=== PATIENT | female | born 1970 | race Caucasian/White ===

== ENCOUNTER 2018-03-20 09:08 | Outpatient (CLI) | payer OTHER, SELFPAY ==
[2018-03-20 11:18] LABS: Abs Immature Grans 0.03 k/cumm (0.0-0.09); Absolute Basophil Count 0.04 k/cumm (0.0-0.2); Absolute Eosinophil Count 0.22 k/cumm (0.0-0.7); Absolute Lymphocyte Count 2.05 k/cumm (1.2-3.4); Absolute Monocyte Count 0.81 k/cumm (0.11-0.7); Absolute Neutrophil Count 6.95 k/cumm (1.2-6.7); Basophils % 0.4; Eosinophils % 2.2; HCT 37.6 % (36.0-46.0); Immature Grans % 0.3; Iron 44 ug/dL (50-175); Lymphocytes % 20.3; Mean Corp. HGB Concentration 31.9 g/dL (32.0-36.0); Mean Corpuscular Hemoglobin 26.3 pg (27.0-33.0); Mean Corpuscular Volume 82.5 fL (80-95); Mean Platelet Volume 10.3 fL (8.0-11.0); Neutrophils % 68.8; Platelet Count 401 x1000/uL (130-400); RBC 4.56 m/cumm (4.00-5.20); RBC Distribution Width 16.4 % (11.7-14.6); Total Iron Binding Capacity 321 ug/dL (250-450); Transferrin Sat 14 % (15-50)
[2018-03-20 11:30] LABS: Ferritin 36 ng/mL (8-388)
== END 2018-03-20 09:28 ==
PROVIDERS: PCP Nurse Practitioner Family; Visit Provider Nurse Practitioner Family
DX: J45.40 Moderate persistent asthma, uncomplicated (principal); D50.0 Iron deficiency anemia secondary to blood loss (chronic)
CPT/HCPCS: 36415; 82728; 83540; 83550; 85025

== ENCOUNTER 2018-09-18 10:36 | Outpatient (CLI) | payer OTHER, SELFPAY ==
[2018-09-18 12:32] LABS: Abs Immature Grans 0.04 k/cumm (0.0-0.09); Absolute Basophil Count 0.04 k/cumm (0.0-0.2); Absolute Eosinophil Count 0.15 k/cumm (0.0-0.7); Absolute Neutrophil Count 7.01 k/cumm (1.2-6.7); Basophils % 0.4; Eosinophils % 1.5; HCT 38.1 % (36.0-46.0); HGB 12.2 g/dL (12.0-15.5); Immature Grans % 0.4; Lymphocytes % 19.1; Mean Corpuscular Hemoglobin 26.3 pg (27.0-33.0); Mean Corpuscular Volume 82.3 fL (80-95); Mean Platelet Volume 10.2 fL (8.0-11.0); Neutrophils % 70.6; Platelet Count 373 x1000/uL (130-400); RBC 4.63 m/cumm (4.00-5.20); RBC Distribution Width 15.4 % (11.7-14.6); White Blood Cell Count 9.94 k/cumm (4.4-10.8)
[2018-09-18 12:40] LABS: Iron 31 ug/dL (50-175); Total Iron Binding Capacity 335 ug/dL (250-450)
[2018-09-18 12:46] LABS: Hemoglobin A1C 5.7 % (4.5-6.2)
[2018-09-18 12:57] LABS: Anion Gap 9.5 mmol/L (3-11); BUN 14 mg/dL (7-18); CO2 27.5 mmol/L (21.0-32.0); Calcium 9.1 mg/dL (8.5-10.1); Chloride 101 mmol/L (98-107); Cholesterol 215 mg/dL (50-200); Ferritin 27 ng/mL (8-388); Glucose 83 mg/dL (70-100); HDL Cholesterol 66 mg/dL (40-60); LDL CHOLESTEROL 126 mg/dL (<100); Potassium 4.5 mmol/L (3.5-5.1); Sodium 138 mmol/L (136-145); Triglyceride 50 mg/dL (30-150)
== END 2018-09-18 10:56 ==
PROVIDERS: PCP Nurse Practitioner Family; Visit Provider Nurse Practitioner Family
DX: Z00.00 Encounter for general adult medical examination without abnormal findings
CPT/HCPCS: 36415; 80048; 80061; 83721; 82728; 83036; 83540; 83550; 85025

== ENCOUNTER 2018-09-23 02:01 | Outpatient (CLI) | payer OTHER, SELFPAY ==
--- NOTE | 2018-09-23 07:48 | DI.CT_ITS ---
SYMPTOMS/DIAGNOSIS: INTERMITTENT ABDOMINAL PAIN, R10.9, ASSESS FOR HERNIA CT OF THE ABDOMEN AND PELVIS: There are no prior comparison exams. Images were performed from the lung bases through the ischial tuberosities after oral and IV contrast. The exam is mildly limited by patient body habitus. There is motion on the mid portion of the scan. There is a small hiatal hernia. The lung bases are clear. The liver shows fatty infiltration. The patient is status post cholecystectomy. The spleen, pancreas, kidneys and adrenals are unremarkable. There is diverticulosis of the descending and sigmoid colon, but no evidence of diverticulitis. The appendix appears normal. There is no small bowel dilatation or wall thickening. The uterus and right ovary are unremarkable. A cyst is noted of the left ovary measuring 3 x 4.3 cm. There is no ascites or evidence of adenopathy. No inguinal or abdominal wall hernias are seen. The aorta is normal in diameter. There are mild degenerative changes in the spine. IMPRESSION: Left ovarian cyst. No evidence of hernia.
[2018-09-23] MEDS: Breeza Beverage 473 ML BTL PO ×2 (08:06→08:07)
[2018-09-23] MEDS: Omnipaque 350 MG/ML 50 ML BTL PO (08:07)
[2018-09-23] MEDS: Omnipaque 350 MG/ML 100 ML BTL IJ (10:14)
== END 2018-09-23 02:21 ==
PROVIDERS: PCP Nurse Practitioner Family; Visit Provider Nurse Practitioner Family
DX: R10.9 Unspecified abdominal pain (principal); N83.292 Other ovarian cyst, left side; K44.9 Diaphragmatic hernia without obstruction or gangrene; K76.0 Fatty (change of) liver, not elsewhere classified; K57.30 Diverticulosis of large intestine without perforation or abscess without bleeding
CPT/HCPCS: 74177; J3490; Q9967

== ENCOUNTER 2018-10-15 00:51 | Outpatient (CLI) | payer OTHER, SELFPAY ==
--- NOTE | 2018-10-15 08:30 | DI.MAMMO_ITS ---
SYMPTOM/DIAGNOSIS: SCREENING Z12.31 MAMMOGRAM: Mammograms were interpreted according to the usual protocol including computer analysis with CAD system, tomosynthesis and C view imaging. The breast tissue is of fatty radiodensity. There is no mass. There are no suspicious calcifications. There has been no significant interval change when compared with prior images. SUMMARY: No evidence of malignancy, Category 1, yearly screening mammography is recommended. Breast density A. MQSA ASSESSMENT OF FINDINGS: Negative. Category 1. Patient will receive a letter notifying them of these results. BI-RAD category A. The breasts are almost entirely fatty.
== END 2018-10-15 01:11 ==
PROVIDERS: PCP Nurse Practitioner Family; Visit Provider Nurse Practitioner Family
DX: Z12.31 Encounter for screening mammogram for malignant neoplasm of breast (principal)
CPT/HCPCS: 77063; 77067

== ENCOUNTER 2018-10-21 12:01 | Outpatient (CLI) | payer OTHER, SELFPAY ==
[2018-10-21 13:30] LABS: HCT 37.2 % (36.0-46.0); Mean Corp. HGB Concentration 32.3 g/dL (32.0-36.0); Mean Corpuscular Hemoglobin 26.3 pg (27.0-33.0); Mean Corpuscular Volume 81.6 fL (80-95); Mean Platelet Volume 10.2 fL (8.0-11.0); Platelet Count 340 x1000/uL (130-400); RBC 4.56 m/cumm (4.00-5.20); RBC Distribution Width 15.5 % (11.7-14.6); White Blood Cell Count 11.14 k/cumm (4.4-10.8)
--- NOTE | 2018-10-21 14:30 | DI.US_ITS ---
SYMPTOMS/DIAGNOSIS: EXTENSIVE THROMBOPHLEBITIS, VARICOSE VEINS, I80.9, I83.90, ? DVT LEFT LEG ULTRASOUND: Thrombus is identified in a superficial vein in the left lateral thigh. There is no evidence of DVT. The study is otherwise unremarkable.
== END 2018-10-21 12:21 ==
PROVIDERS: PCP Nurse Practitioner Family; Visit Provider Family Medicine
DX: I80.02 Phlebitis and thrombophlebitis of superficial vessels of left lower extremity (principal); I83.92 Asymptomatic varicose veins of left lower extremity; N93.9 Abnormal uterine and vaginal bleeding, unspecified
CPT/HCPCS: 36415; 85027; 93971

== ENCOUNTER 2018-10-23 04:29 | Emergency (ER) | payer OTHER, SELFPAY ==
--- NOTE | 2018-10-23 04:33 | W.ED.GENAD ---
Discharge Plan Disposition Patient Disposition: HOME Condition: Good Discharge Details Chief Complaint: SERVICENOW ADMINISTRATOR Clinical Impression: Excessive vaginal bleeding, Superficial thrombophlebitis Primary Care Provider: Julia Camacho ED Provider: Hernandez Linton [place] Meds and New Rx's Prescriptions: Continued cyclobenzaprine 5 mg tablet 5 - 10 mg PO TID PRN (Reason: muscle spasm) Qty: 42 RF: 0 C-PAP RF: 0 Asthma Check Meter 1 EACH device 1 ea Miscellaneous DAILY Qty: 1 RF: 1 ferrous sulfate 325 MG tablet 325 mg PO DAILY Qty: 100 RF: 3 albuterol sulfate [ProAir HFA] 8.5 GM HFA aerosol inhaler 2 puff Inhalation Q6H PRN Qty: 1 RF: 11 erythromycin 1 GM ointment 1 gm Ophthalmic HS PRNQty: 1 RF: 0 albuterol sulfate 2.5 MG/3 ML solution for nebulization 1 vial Inhalation Q 4-6 HR PRN Qty: 100 RF: 4 desloratadine 5 MG tablet 5 mg PO DAILY Qty: 90 RF: 0 fluticasone propion-salmeterol [Advair Diskus] 500-50 mcg/dose blister with device 1 inh Inhalation BID Qty: 60 RF: 11 montelukast [Singulair] 10 mg tablet 10 mg PO QPM Qty: 90 RF: 4 omeprazole 40 mg capsule,delayed release(DR/EC) 40 mg PO QAM Qty: 90 RF: 4 Discontinued rivaroxaban 10 mg tablet 10 mg PO DAILY Qty: 45 RF: 0 Discharge Instructions Additional Instructions: Would stop the Xarelto at this point as the risk seems higher than the benefit. Would use warm compresses to the phlebitis area. Prescription for the progesterone pill should be into your pharmacy later this morning. Follow-up with primary care and [facility]/PRODUCTION MANAGER [facility] as discussed. Return to ED for fainting, shortness of breath, chest pain, other concerns. Referrals: [facility] [Provider Group] Julia Camacho NP [Primary Care Provider] - Medical Decision Making Patient presenting with increased vaginal bleeding since being placed on Xarelto for superficial thrombophlebitis involving a varicose vein. At this point given her description of the bleeding the risk of anticoagulation outweighs the benefit of use for a varicose vein. She cannot take nonsteroidals because of anaphylaxis. Would therefore recommend just hot compresses. I would discontinue the Xarelto. Will get a repeat H&H now. Reassuring that heart rate and blood pressure are fine. Likely does not need transfusion. Patient's hemoglobin has come back normal and stable. Vital signs are stable. I did speak to Dr. Hernández who is on for [facility]PRODUCTION MANAGER [facility]. We both think the Xarelto should be discontinued at this point. He will make sure that the progesterone prescription is called in this morning. Patient instructed to use warm compresses to the phlebitis area. Follow-up with primary care and PRO[facility]/PRODUCTION MANAGER [facility]AG[facility]. Return to ED for syncope, shortness of breath, chest pain. Medical Records Medical records reviewed: Yes I reviewed the patient's medical records. Lab Data Lab results reviewed: Yes I reviewed the patient's lab results. HPI General Mode of arrival: ambulatory. Date/Time Provider Initiated Documentation: 10/23/18 04:33. Limitations to Documentation: no limitations. Information obtained by: patient. HPI Narrative: Patient presents to ED with heavy vaginal bleeding. Patient has had problems with abdominal vaginal bleeding. She has had abnormally long periods for the last few months. Patient was seen by primary care earlier this week. She was felt to have a clot in her left lower extremity and was sent for ultrasound. Ultrasound showed clot in a superficial unnamed vein. Because the phlebitis seemed to extend quickly they decided to put her on Xarelto. Subsequent to that her bleeding has got much worse. She was seen by SERVICENOW ADMINISTRATOR yesterday. Prescription was supposed to be called in, presumably for progesterone, but was not. Overnight she has been bleeding very heavily and feels weak and tired. She has had no syncope, chest pain, shortness of breath. Hemoglobin 2 days ago was normal. She contacted [facility]/PRODUCTION MANAGER [facility]AG[facility] and is now here for evaluation. Related Data Home Medications Medication Instructions Recorded Confirmed C-Pap 07/02/13 10/22/18 Asthma Check Meter #1 ea 07/08/14 10/22/18 ferrous sulfate 325 mg PO DAILY #100 tab 12/22/14 10/23/18 albuterol sulfate [ProAir HFA] 2 puff INHALATION Q6H PRN #1 08/29/16 10/23/18 inhaler erythromycin 1 gm OPHTHALMIC HS PRN #1 ea 06/02/17 10/23/18 albuterol sulfate 1 vial INHALATION Q 4-6 HR PRN 08/29/17 10/23/18 #100 vial desloratadine 5 mg PO DAILY #90 tab-cap 09/16/17 10/23/18 fluticasone 500 mcg-salmeterol 50 1 inh INHALATION BID #60 each 05/14/18 10/23/18 mcg/dose blistr powdr for inhalation montelukast 10 mg tablet 10 mg PO QPM #90 tab 05/14/18 10/23/18 omeprazole 40 mg capsule,delayed 40 mg PO QAM #90 cap 05/14/18 10/23/18 release cyclobenzaprine 5 mg tablet 5 - 10 mg PO TID PRN #42 tab 10/21/18 10/23/18 Previous Rx's Medication Instructions Recorded albuterol sulfate 1 vial INHALATION Q 4-6 HR PRN 08/29/17 #100 vial desloratadine 5 mg PO DAILY #90 tab-cap 09/16/17 fluticasone 500 mcg-salmeterol 50 1 inh INHALATION BID #60 each 05/14/18 mcg/dose blistr powdr for inhalation montelukast 10 mg tablet 10 mg PO QPM #90 tab 05/14/18 omeprazole 40 mg capsule,delayed 40 mg PO QAM #90 cap 05/14/18 release cyclobenzaprine 5 mg tablet 5 - 10 mg PO TID PRN #42 tab 10/21/18 Allergies Allergy/AdvReac Type Severity Reaction Status Date / Time aspirin Allergy Severe ANAPHYLAXIS Verified 10/23/18 04:46 codeine Allergy Severe ANALHYLAXIS Verified 10/23/18 04:46 mometasone furoate Allergy Severe ANAPHYLAXIS, Verified 10/23/18 04:46 [facility] ADVAIR OK TO TAKE NSAIDS (Non-Steroidal Allergy Severe ANAPHYLAXIS Verified 10/23/18 04:46 Anti-Inflamma Penicillins Allergy Unknown Verified 10/23/18 04:46 Review of Systems Review of Systems As documented in HPI otherwise negative as below. Const: feels weak; no fever, chills Resp: no cough, SOB, pleuritic pain CV: no CP, diaphoresis, edema, syncope GI: no abdominal pain, nausea, vomiting, diarrhea Neuro: no headache, numbness, focal weakness, confusion PFSH Medical History Prediabetes (Chronic) LINETTE (obstructive sleep apnea) (Chronic) Hyperlipidemia (Chronic 07/02/13) Moderate persistent asthma without complication (Chronic 09/15/17) Iron deficiency anemia due to chronic blood loss (Chronic 01/17/15) Abnormal uterine bleeding (Chronic) Gastroesophageal reflux disease (Chronic 07/02/13) Obesity (Chronic) Surgical History Cholecystectomy (Inactive 03/1994) Family History Mother Hyperlipidemia Type 2 diabetes mellitus Essential hypertension Father Heart disease Hyperlipidemia Myocardial infarction Type 2 diabetes mellitus Essential hypertension Sister Essential hypertension Hyperlipidemia Endometrial cancer Brother No problems noted. Son Asthma Daughter No problems noted. Maternal Grandfather Heart disease Lung cancer Maternal Grandmother Essential hypertension Breast cancer Paternal Grandfather COPD (chronic obstructive pulmonary disease) Paternal Grandmother Endometrial cancer Social History Smoking/Tobacco Use Status: Never Second Hand Exposure: Yes Alcohol Intake: never Drug use: Never Substance use type: does not use Caregiver/Support person: No Household members: spouse and children Housing: house Communication Needs: None Do you need help understanding health information?: Never Pets and animals: Yes Pets and animals: cat(s) and dog(s) Sexually active: Yes Do you think of yourself as: straight/heterosexual Current gender identity: female What is your relationship status?: How often do you talk on the phone with friends or family?: three or more times per week How often do you get together with friends or relatives?: twice per week How often do you attend orthodox or taoism services?: 4 or more times per year Do you belong to any clubs or organized social groups?: no Panel score (0-1 are the most socially isolated patients): 3 What type of physical activity do you participate in: walking Duration: decline to answer Frequency: 1-2 times per week Екатерина/Sikhism: Denominational Special екатерина needs: No Seatbelt use: always Helmet use: Yes Drive intox or ride w/intox 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 Const: Obese female in NAD. HEENT: NC/AT. Normal facial exam. Neck: Supple. Trachea midline. Lungs: Normal respiratory effort. Lungs are clear. Cor: RRR without murmur/gallop. Good radial pulses. Neuro: A+O x 3. CN grossly in tact. Good strength and no focal deficit. Ext: No C/C/E. Mild tenderness along the lateral calf up past knee across medial thigh with purplish-red discoloration. Skin: Warm and dry without rash. 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
[2018-10-23 04:39] VITALS: BP 144/66; PULSE 61; RESP 16; TEMP 36.7; O2SAT 100
[2018-10-23 05:28] LABS: HCT 37.5 % (36.0-46.0); HGB 12.3 g/dL (12.0-15.5)
== END 2018-10-23 06:06 | disposition home or self-care (01) ==
PROVIDERS: Emergency Provider Emergency Medicine; PCP Nurse Practitioner Family
DX: N89.8 Other specified noninflammatory disorders of vagina (principal); I80.02 Phlebitis and thrombophlebitis of superficial vessels of left lower extremity; Z79.01 Long term (current) use of anticoagulants
CPT/HCPCS: 36415; 99283; 85014; 85018

== ENCOUNTER 2018-11-02 00:24 | Outpatient (CLI) | payer OTHER, SELFPAY ==
--- NOTE | 2018-11-02 14:51 | DI.US_ITS ---
SYMPTOM/DIAGNOSIS: NEW LEFT LEG SWELLING, PLEASE REASSESS THROMBUS SUPERFICIAL THROMBOPHLEBITIS LT LEG i80.02 LEFT LOWER EXTREMITY ULTRASOUND: There is a superficial vein in the lateral anterior thigh which shows thrombus. There is no evidence of deep venous thrombosis or Love's cyst. The saphenous vein appears free of thrombus. IMPRESSION: Superficial thrombophlebitis in a vein of the lateral anterior thigh. No evidence of DVT.
== END 2018-11-02 00:44 ==
PROVIDERS: PCP Nurse Practitioner Family; Visit Provider Nurse Practitioner Family
DX: I80.02 Phlebitis and thrombophlebitis of superficial vessels of left lower extremity (principal); R22.42 Localized swelling, mass and lump, left lower limb
CPT/HCPCS: 93971

== ENCOUNTER 2018-11-13 01:12 | Outpatient (CLI) | payer OTHER, SELFPAY ==
--- NOTE | 2018-11-13 12:41 | DI.US_ITS ---
SYMPTOMS/DIAGNOSIS: ABNORMAL UTERINE AND VAGINAL BLEEDING, N93.9 PELVIC ULTRASOUND: Transabdominal and transvaginal examination was performed. Comparison pelvic CT scan is 09/23/18. The uterus measures 9.1 cm long x 5.2 cm AP x 6.3 cm transverse. The endometrial stripe is within normal limits at 1.1 cm. It is homogeneous without abnormal blood flow. There is a single hypoechoic mass along the posterior body of the uterus. It measures 2.1 x 1.4 cm. It is avascular. It does distort the contour of the uterus. This likely reflects a fibroid. Cervical nabothian cysts are present. The ovaries are not well visualized transabdominally or transvaginally due to patient body habitus. No suspicious adnexal masses, free pelvic fluid or hydronephrosis is identified. IMPRESSION: 1. Unremarkable endometrial stripe. 2. Uterine fibroid.
== END 2018-11-13 01:32 ==
PROVIDERS: PCP Nurse Practitioner Family; Visit Provider Obstetrics & Gynecology
DX: N93.8 Other specified abnormal uterine and vaginal bleeding (principal); D25.9 Leiomyoma of uterus, unspecified
CPT/HCPCS: 76830; 76856

== ENCOUNTER 2019-02-16 18:04 | Emergency (ER) | payer OTHER, SELFPAY ==
[2019-02-16] VITALS (7 sets, daily range): BP systolic 118–157; BP diastolic 68–101; PULSE 62–86; RESP 18–25; TEMP 36.8–37; O2SAT 91–100
[2019-02-16] MEDS: Normal Saline Flush 10 ML SYR IVP (18:16)
--- NOTE | 2019-02-16 18:42 | ED.GENADUL_ITS ---
Discharge Plan Disposition Patient Disposition: HOME Condition: Good Discharge Details Chief Complaint: Abd Prob Clinical Impression: Abdominal pain, Flank pain Primary Care Provider: Julia Camacho ED Provider: Mendy Maxwell Home Meds and New Rx's Prescriptions: New dicyclomine 20 mg tablet 20 mg PO TID Qty: 10 RF: 0 sucralfate [Carafate] 1 gram tablet 1 gm PO BID Qty: 10 RF: 0 pantoprazole [Protonix] 40 mg tablet,delayed release (DR/EC) 40 mg PO DAILY Qty: 14 RF: 0 Discontinued omeprazole 40 mg capsule,delayed release(DR/EC) 40 mg PO QAM Qty: 90 RF: 4 No Action ferrous sulfate 325 MG tablet 325 mg PO DAILY Qty: 100 RF: 3 albuterol sulfate [ProAir HFA] 8.5 GM HFA aerosol inhaler 2 puff Inhalation Q6H PRN Qty: 1 RF: 11 albuterol sulfate 2.5 MG/3 ML solution for nebulization 1 vial Inhalation Q 4-6 HR PRN Qty: 100 RF: 4 montelukast [Singulair] 10 mg tablet 10 mg PO QPM Qty: 90 RF: 4 fluticasone propion-salmeterol [Advair Diskus] 500-50 mcg/dose blister with device 1 inh Inhalation BID Qty: 60 RF: 11 Discharge Instructions Instructions: Peptic Ulcer (ED) Additional Instructions: Drink plenty of water. Rest activities as tolerated. Use medications as prescribed. Discontinue omeprazole. Use Protonix in its place. Use Carafate as prescribed. Use Bentyl if needed for spasmodic pain. Follow-up with primary care doctor for prompt reevaluation. CT findings discussed. Return for any worsening or concerns sooner if needed as discussed Discharge Data Discharge Date/Time-TO BE ENTERED AT DEPARTURE: 02/16/19 22:52 Medical Decision Making 48-year-old woman presents for complaints of right flank pain with radiation into her upper abdomen. Patient reports onset of pain in the last 2 weeks. Patient reports pain began as an uncomfortable ache however in the last 24 hours became more significant now very sharp intermittent. Patient reports pain is very sharp in her back and abdomen for approximately 10 to 15 seconds reports is a very sharp spasm then episodes relieve. Denies fever, chills. Nausea present without vomiting. Patient denies changes in her bowels or urination. Patient does report she has been menstruating for the last 5 days. Patient reports the only similar episode of pain she is experienced was in September somewhat similar but less severe ultimately had CAT scans and no obvious findings identified. Patient reports that episode also occurred during her menstrual cycle. Patient reports she does have a known uterine fibroid, followed by gynecology locally. Patient's labs do reveal very mild leukocytosis 13.27 with no significant shift. No significant change in bilirubin or liver functions. Patient is status post cholecystectomy greater than 20 years ago. testing negative. Patient's urinalysis reveals red blood cell without any obvious indicators of infection. No identifiable stone or hydronephrosis present. Patient did have mild peripancreatic fat stranding without correlating elevations of her lipase. Patient does not have significant left upper quadrant abdominal complaints on exam. Patient noted to have diverticula present without diverticulosis, hepatic steatosis. Hepatomegaly present. Again no elevation of LFTs in conjunction with these findings present. Patient is significantly more comfortable after receiving morphine and Valium. Patient able to move without significant difficulty. Pain is more tolerable. No identifiable kidney stone present given her flank pain with radiation toward the upper abdomen and is possible this could be related to duodenal ulcer. Patient does have a significant reflux history for which she does take omeprazole daily which she is compliant with. Will increase her omeprazole to Protonix and add Carafate as well Bentyl as it is possible this pain is related to ulcerative disease. Discussed this case with my attending Dr. Linton who agrees with plan of care. Patient may require primary care follow-up for possible endoscopy. Patient did have an endoscopy approximately 7 years ago. Patient also encouraged to follow-up with her [facility] doctor for her fibroids. Patient's painful episodes do correlate with her menses and her menses have been atypical in duration and timing in the last few months. Patient encouraged follow-up with her [facility] doctor. She agrees with plan of care Discussed inpatient management for pain versus outpatient follow-up with PCP. Patient does feel comfortable discharge home at this time. Will trial ulcer management. The patient was stable and requested discharge. Prior to discharge, my usual and customary return precautions were reviewed with the patient - this included follow-up instructions and reasons to return to the Emergency Department if conditions worsens, does not improve as expected, or other new concerns arise. HPI General Date/Time Provider Initiated Documentation: 02/16/19 18:07 . HPI Narrative: 48-year-old patient presents to the ER in significant pain in the right flank which radiates into the right side of her abdomen. Patient reports 2 weeks of intermittent pain which in the last 24 hours has escalated. Patient reports she is currently menstruating for the last 5 days pain has escalated in the last 5 days. Patient reports this morning feeling quite nauseous without vomiting. No measured fevers or chills. Patient reports noting abdominal bloating. She is moving her bowels normally. She does take iron supplements when menstruating. Patient denies urinary urgency, frequency or dysuria. Patient reports pain is extremely sharp coming in waves. Patient reports very clear episodes of pain lasting 10 to 15 seconds which then resolved mostly. Patient reports pain is significantly worse with attempted range of motion or change in position. Pain is worse with deep breathing. Patient denies obvious cough or difficulty breathing however does report breathing shallowly due to pain. Denies headache. Feeling mildly lightheaded. Related Data Home Medications Medication Instructions Recorded Confirmed ferrous sulfate 325 mg PO DAILY #100 tab 12/22/14 02/11/19 albuterol sulfate [ProAir HFA] 2 puff INHALATION Q6H PRN #1 08/29/16 02/11/19 inhaler albuterol sulfate 1 vial INHALATION Q 4-6 HR PRN 08/29/17 02/11/19 #100 vial montelukast 10 mg tablet 10 mg PO QPM #90 tab 05/14/18 02/11/19 Advair Diskus 500 mcg-50 mcg/dose 1 inh INHALATION BID #60 each NS 11/24/18 02/11/19 powder for inhalation dicyclomine 20 mg PO TID #10 tab 02/16/19 pantoprazole [Protonix] 40 mg PO DAILY #14 tab 02/16/19 sucralfate [Carafate] 1 gm PO BID #10 tab 02/16/19 Previous Rx's Medication Instructions Recorded albuterol sulfate 1 vial INHALATION Q 4-6 HR PRN 08/29/17 #100 vial montelukast 10 mg tablet 10 mg PO QPM #90 tab 05/14/18 Advair Diskus 500 mcg-50 mcg/dose 1 inh INHALATION BID #60 each NS 07/23/19 powder for inhalation dicyclomine 20 mg PO TID #10 tab 02/16/19 pantoprazole [Protonix] 40 mg PO DAILY #14 tab 02/16/19 sucralfate [Carafate] 1 gm PO BID #10 tab 02/16/19 Allergies Allergy/AdvReac Type Severity Reaction Status Date / Time aspirin Allergy Severe ANAPHYLAXIS Verified 02/16/19 18:22 codeine Allergy Severe ANALHYLAXIS Verified 02/16/19 18:22 mometasone furoate Allergy Severe ANAPHYLAXIS, Verified 02/16/19 18:22 [From Asmanex Twisthaler] ADVAIR OK TO TAKE NSAIDS (Non-Steroidal Allergy Severe ANAPHYLAXIS Verified 02/16/19 18:22 Anti-Inflamma Penicillins Allergy Unknown Verified 02/16/19 18:22 prednisone AdvReac Severe projectile Unverified 02/16/19 18:22 vomiting General Stated Complaint: Abd Prob SARITA: 3 Review of Systems Review of Systems ROS Unobtainable: All systems reviewed & are unremarkable except as noted in HPI and below Constitutional Constitutional: Denies chills, Denies fever(s), Denies headache(s) and Reports poor appetite ENT Ears, Nose, Mouth, and Throat: Denies headache(s) Respiratory Respiratory: Denies cough, Reports pain on inspiration, Denies pain with cough, Denies stridor and Denies wheezing Gastrointestinal Gastrointestinal: Reports abdominal pain, Reports bloating, Reports cramping, Reports nausea and Denies vomiting Genitourinary Genitourinary: Denies urinary frequency, Denies dysuria and Denies urinary urgen cy Neurologic Neurologic: Denies headache(s) Allergic/Immunologic Allergic/Immunologic: Denies wheezing [facility] Medical History Abnormal uterine bleeding (Chronic) Heavy menstrual bleeding, uterine fibroids on pelvic US Diverticulosis of colon (Chronic) Gastroesophageal reflux disease (Chronic) Hyperlipidemia (Chronic) Iron deficiency anemia due to chronic blood loss (Chronic) Moderate persistent asthma without complication (Chronic) Obesity (Chronic) LINETTE (obstructive sleep apnea) (Chronic) Prediabetes (Chronic) Surgical History Cholecystectomy (Inactive 03/1994) Family History Mother Hyperlipidemia Type 2 diabetes mellitus Essential hypertension Father , at 44 of [place], cardiomyopathy Heart disease Hyperlipidemia Myocardial infarction Type 2 diabetes mellitus Essential hypertension Sister Essential hypertension Hyperlipidemia Endometrial cancer Brother , at 19 of MVA No problems noted. Son Asthma Daughter No problems noted. Maternal Grandfather , at 86 of lung cancer Heart disease Lung cancer Maternal Grandmother , at 84 of breast CA Essential hypertension Breast cancer Paternal Grandfather , at 67 COPD (chronic obstructive pulmonary disease) Paternal Grandmother , at 86 of endometrial cancer Endometrial cancer Social History Smoking/Tobacco Use Status: Never Second Hand Exposure: Yes Alcohol Intake: never Drug use: Never Substance use type: does not use Caregiver/Support person: No Household members: spouse and children Housing: house Communication Needs: None Do you need help understanding health information?: Never Pets and animals: Yes Pets and animals: cat(s) and dog(s) Sexually active: Yes Do you think of yourself as: straight/heterosexual Current gender identity: female What is your relationship status?: How often do you talk on the phone with friends or family?: three or more times per week How often do you get together with friends or relatives?: twice per week How often do you attend nondenominational or yazidism services?: 4 or more times per year Do you belong to any clubs or organized social groups?: no Panel score (0-1 are the most socially isolated patients): 3 What type of physical activity do you participate in: walking Duration: decline to answer Frequency: 1-2 times per week Екатерина/Presybeterian: Uatsdin Special екатерина needs: No Seatbelt use: always Helmet use: Yes Drive intox or ride w/intox otr flatbed company 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 Alert and alert. HENMT: Head nomocephalic, normal to inspection. Atraumatic. Hearing grossly normal. EYES: General normal appearance. Alignment normal. Eyelids normal. Conjunctiva normal. NECK: Normal visual inspection. FROM. Trachea midline. No Midline tenderness. CHEST: Normal insepection of the chest. RESP: Normal respiratory effort. Speaking full sentences. No cough. No audible wheezing. No retractions. Breath sounds present and equal in all 4 quadrants, no wheezing, clear CARDIO: No JVD. No murmurs or rubs. Abdomen; right upper quadrant, epigastric, right lower quadrant tenderness with palpation abdominal tenderness with palpation. No obvious rebound or guarding. Bowel sounds present in all 4 quadrants. MUSCULOSKELETAL: Normal Gait. FROM of all extremities. SKIN: Normal. Dry. No rashes. NEURO: Alert and awake. Speech clear. PSYCH: Normal affect. Cooperative. Course Vital Signs Vital signs: Vital Signs Temperature 37.0 C 02/16/19 18:05 Pulse 86 02/16/19 18:05 Respiratory Rate 18 02/16/19 18:05 Blood Pressure 157/101 H 02/16/19 18:05 Pulse Oximetry 99 02/16/19 18:05 Temperature 37.0 C 02/16/19 18:05 Temperature Source Skin 02/16/19 18:05 Pulse 86 02/16/19 18:05 Respiratory Rate 18 02/16/19 18:05 Respiratory Effort 02/16/19 18:35 Blood Pressure 157/101 H 02/16/19 18:05 Blood Pressure Position Standing 02/16/19 18:05 Pulse Oximetry 99 02/16/19 18:05 Oxygen Delivery Method Room Air 02/16/19 18:05 Oxygen Flow Rate 0 02/16/19 18:05 Pain Level 10 02/16/19 18:05
[2019-02-16] MEDS: Normal Saline 1,000 ML 1000 ML IV (18:45)
[2019-02-16 18:49] LABS: Abs Immature Grans 0.04 k/cumm (0.0-0.09); Absolute Basophil Count 0.05 k/cumm (0.0-0.2); Absolute Eosinophil Count 0.09 k/cumm (0.0-0.7); Absolute Monocyte Count 0.93 k/cumm (0.11-0.7); Basophils % 0.4; Eosinophils % 0.7; HCT 36.4 % (36.0-46.0); HGB 11.7 g/dL (12.0-15.5); Immature Grans % 0.3; Lymphocytes % 22.8; Mean Corp. HGB Concentration 32.1 g/dL (32.0-36.0); Mean Corpuscular Hemoglobin 25.3 pg (27.0-33.0); Mean Corpuscular Volume 78.8 fL (80-95); Mean Platelet Volume 10.3 fL (8.0-11.0); Neutrophils % 68.8; Platelet Count 583 x1000/uL (130-400); RBC 4.62 m/cumm (4.00-5.20); RBC Distribution Width 15.9 % (11.7-14.6); White Blood Cell Count 13.27 k/cumm (4.4-10.8)
[2019-02-16 18:50] LABS: Absolute Lymphocyte Count 3.03 k/cumm (1.2-3.4); Absolute Neutrophil Count 9.13 k/cumm (1.2-6.7)
[2019-02-16] MEDS: diazePAM 10 MG/2 ML SYR 5 MG IVP (18:50)
[2019-02-16 19:00] LABS: HCG Qual (Serum) Negative
[2019-02-16 19:03] LABS: INR 1.1 (0.9-1.1); PTT Activated 26.3 sec (21.0-31.4); Prothrombin Time 11.2 sec (9.3-11.0)
[2019-02-16 19:17] LABS: ALT 14 U/L (14-59); AST 13 U/L (15-37); Albumin 3.8 g/dL (3.4-5.0); Alkaline Phosphatase 75 U/L (46-116); Anion Gap 11.3 mmol/L (3-11); BUN 10 mg/dL (7-18); Bilirubin, Total 0.4 mg/dL (0.2-1.0); CO2 25.7 mmol/L (21.0-32.0); CREATININE 0.85 mg/dL (0.55-1.02); Calcium 9.4 mg/dL (8.5-10.1); Chloride 102 mmol/L (98-107); Glucose 107 mg/dL (70-100); Lipase 75 U/L (73-393); Potassium 3.7 mmol/L (3.5-5.1); Sodium 139 mmol/L (136-145); Total Protein 8.4 g/dL (6.4-8.2)
--- NOTE | 2019-02-16 19:30 | DI.CT_ITS ---
EXAM: CT ABDOMEN PELVIS WO/W CLINICAL HISTORY: flank and right abd pain TECHNIQUE: Noncontrast. COMPARISON: CT ABDOMEN PELVIS W from 09/23/2018 FINDINGS: The liver is mildly enlarged and shows mild fatty infiltration. Patient is status post cholecystect key. There is no biliary dilatation. The spleen, adrenals, kidneys and pancreas are unremarkable. No urinary tract calculi or hydronephrosis is seen. The appendix appears normal. There is no bowel dilatation or inflammatory change. There is scattered diverticula but no evidence of diverticulitis. The aorta is normal in diameter. The bladder, uterus and ovaries are also within normal limits. T here are no thoracic compression fractures. IMPRESSION: No evidence of urinary tract calculi or hydronephrosis. No acute abnormality is identified.
[2019-02-16] MEDS: Omnipaque 350 MG/ML 100 ML BTL IJ (19:34)
[2019-02-16] MEDS: Ondansetron 4 MG/2 ML VIAL (19:52)
[2019-02-16 20:06] LABS: Bilirubin Negative (Negative); Blood Large (Negative); Clarity Cloudy (Clear); Glucose Negative (Negative); Ketones Trace mg/dL (Negative); Leukocyte Esterase Negative (Negative); Nitrite Negative (Negative); Urobilinogen 0.2 EU/dL (Up TO 0.2)
--- NOTE | 2019-02-16 20:07 | DI.VRAD_ITS ---
PROCEDURE INFORMATION: Exam: CT Abdomen And Pelvis Without And With Contrast Exam date and time: 02/16/2019 6:41 PM Clinical history: 48 years old, female; Abdominal pain and other: R flank; Generalized; Patient HX: R flank pain and abdominal pain TECHNIQUE: Imaging protocol: Computed tomography of the abdomen and pelvis without and with intravenous contrast. Radiation optimization: All CT scans at this facility use at least one of these dose optimization techniques: automated exposure control; mA and/or kV adjustment per patient size (includes targeted exams where dose is matched to clinical indication); or iterative reconstruction. Contrast material: OMNIPAQUE 350; Contrast volume: 100 ml; Contrast route: IV LAC; COMPARISON: CT ABDOMEN PELVIS W 09/23/2018 10:02 AM FINDINGS: Liver: Liver is minimally enlarged.There is diffuse decrease in hepatic parenchymal density, consistent with mild fatty infiltration. Gallbladder and bile ducts: The patient is status post cholecystectomy. No biliary ductal dilatation. Pancreas: There is subtle stranding of peripancreatic fat. No ductal dilatation. No peripancreatic collections. Spleen: Normal. No splenomegaly. Adrenals: Normal. No mass. Kidneys and ureters: Normal. No hydronephrosis. Stomach and bowel: There is no evidence of intestinal perforation or obstruction.. Scattered colonic diverticula without findings for diverticulitis. Appendix: The appendix appears normal. Intraperitoneal space: Unremarkable. No free air. No significant fluid collection. Vasculature: Unremarkable. No abdominal aortic aneurysm. Lymph nodes: Unremarkable. No enlarged lymph nodes. Bladder: Unremarkable as visualized. Reproductive: Unremarkable as visualized. Bones/joints: Unremarkable. No acute fracture. Soft tissues: Left diaphragm is elevated. IMPRESSION: 1. Peripancreatic fat stranding. Clinically correlate for the presence of pancreatitis. 2. Colonic diverticula. 3. Hepatic steatosis. 4. Hepatomegaly. Dictated and Authenticated by: Grant Garza MD. Ordering:BASSAM Brooke MD
[2019-02-16 20:10] LABS: C & S Indicated? C&S Done As Ordered; RBC >50 (0-2)
== END 2019-02-16 22:52 | disposition home or self-care (01) ==
PROVIDERS: Emergency Provider Physician Assistant; PCP Nurse Practitioner Family
DX: R10.9 Unspecified abdominal pain (principal); R11.0 Nausea
CPT/HCPCS: 36415; 80053; 81025; 83690; 87077; 96361; 96374; 96375; 99285; 74178; 81003; 81015; 84703; 85025; 85610; 85730; 87086; 99284; J2405; J3360; J3490

== ENCOUNTER 2019-02-18 10:16 | Observation (INO) | payer OTHER, SELFPAY ==
[2019-02-18] VITALS (41 sets, daily range): BP systolic 110–150; BP diastolic 61–107; PULSE 54–89; RESP 13–87; TEMP 36.5–36.7; O2SAT 94–100
[2019-02-18] MEDS: Normal Saline Flush 10 ML SYR IVP ×2 (10:35→17:43)
--- NOTE | 2019-02-18 10:37 | ED.GENADUL_ITS ---
Discharge Plan Disposition Patient Disposition: [facility] INPATIENT Discharge Details Chief Complaint: Abd Prob Clinical Impression: Intractable low back pain, Lumbar paraspinal muscle spasm Primary Care Provider: Julia Camacho ED Provider: Srikanth Biswas Home Meds and New Rx's Prescriptions: No Action ferrous sulfate 325 MG tablet 325 mg PO DAILY Qty: 100 RF: 3 albuterol sulfate [ProAir HFA] 8.5 GM HFA aerosol inhaler 2 puff Inhalation Q6H PRN Qty: 1 RF: 11 albuterol sulfate 2.5 MG/3 ML solution for nebulization 1 vial Inhalation Q 4-6 HR PRN Qty: 100 RF: 4 montelukast [Singulair] 10 mg tablet 10 mg PO QPM Qty: 90 RF: 4 fluticasone propion-salmeterol [Advair Diskus] 500-50 mcg/dose blister with device 1 inh Inhalation BID Qty: 60 RF: 11 dicyclomine 20 mg tablet 20 mg PO TID Qty: 10 RF: 0 sucralfate [Carafate] 1 gram tablet 1 gm PO BID Qty: 10 RF: 0 pantoprazole [Protonix] 40 mg tablet,delayed release (DR/EC) 40 mg PO DAILY Qty: 14 RF: 0 Medical Decision Making 11:00 Patient presented in notable distress involving severe right flank/right lower lumbar region spasm. Unable to perform detailed physical exam secondary to discomfort. Patient had a full competence of work-up less than 48 hours prior to arrival. Her work-up at that time demonstrated no acute findings. She did have a CT scan of her abdomen and pelvis which was negative for stone. She did have a urinalysis that had significant amount of RBCs, however, patient is currently menstruating. She has no abdominal pain on exam. Her vitals show a stable blood pressure and heart rate. No fever. IV placed and Valium 5 mg and fentanyl 50 mcg IV push given. Basic labs drawn. Will monitor for response. 15:28 This is a nontoxic-appearing 48-year-old female presenting to the emergency department noticeable distress involving her right lower lumbar region. Physical exam demonstrates point tenderness over the right lower paraspinal musculature of the lumbar spine. Palpable spasm present. She has no neurological deficits or evidence of cauda equina. Her labs are unremarkable. She has blood in her urine however admits to being on her menses. Her CT from less than 48 hours ago was negative for stone. She is required high-dose narcotics along with benzos obtain any sort of relief while resting on the stretcher. However, whenever she tries to self ambulate or even move ever so slightly she developed severe spasm and pain. At this point we have reached maximum medical management in the emergency department. We will need to admit for intractable back pain. Case discussed with Dr. Zafar who will admit. Holding orders placed. HPI General Date/Time Provider Initiated Documentation: 02/18/19 10:23 . HPI Narrative: Patient presents to the emergency department complaining of severe lower back pain. Pain is wavelike and severe at its maximum. She locates the pain in the right lower flank/lumbar region. She denies any abdominal pain. No chest pain. No shortness of breath. She states that the pain is been ongoing for the last 3 to 5 days. She was seen in the emergency department 2 days ago where she had a comprehensive work-up including blood work and CAT scan abd/pelvis. No definable source to her pain at that time. She states that her pain was much less severe then. She was diagnosed with a possible ulcer and discharged with medication for such. Related Data Home Medications Medication Instructions Recorded Confirmed ferrous sulfate 325 mg PO DAILY #100 tab 12/22/14 02/18/19 albuterol sulfate [ProAir HFA] 2 puff INHALATION Q6H PRN #1 08/29/16 02/18/19 inhaler albuterol sulfate 1 vial INHALATION Q 4-6 HR PRN 08/29/17 02/18/19 #100 vial montelukast 10 mg tablet 10 mg PO QPM #90 tab 05/14/18 02/18/19 Advair Diskus 500 mcg-50 mcg/dose 1 inh INHALATION BID #60 each NS 11/24/18 02/18/19 powder for inhalation dicyclomine 20 mg PO TID #10 tab 02/16/19 02/18/19 pantoprazole [Protonix] 40 mg PO DAILY #14 tab 02/16/19 02/18/19 sucralfate [Carafate] 1 gm PO BID #10 tab 02/16/19 02/18/19 Previous Rx's Medication Instructions Recorded albuterol sulfate 1 vial INHALATION Q 4-6 HR PRN 08/29/17 #100 vial montelukast 10 mg tablet 10 mg PO QPM #90 tab 05/14/18 Advair Diskus 500 mcg-50 mcg/dose 1 inh INHALATION BID #60 each NS 11/24/18 powder for inhalation dicyclomine 20 mg PO TID #10 tab 02/16/19 pantoprazole [Protonix] 40 mg PO DAILY #14 tab 02/16/19 sucralfate [Carafate] 1 gm PO BID #10 tab 02/16/19 Allergies Allergy/AdvReac Type Severity Reaction Status Date / Time aspirin Allergy Severe ANAPHYLAXIS Verified 02/18/19 10:38 codeine Allergy Severe ANALHYLAXIS Verified 02/18/19 10:38 mometasone furoate Allergy Severe ANAPHYLAXIS, Verified 02/18/19 10:38 [From Doron Azar] ADVAIR OK TO TAKE NSAIDS (Non-Steroidal Allergy Severe ANAPHYLAXIS Verified 02/18/19 10:38 Anti-Inflamma Penicillins Allergy Unknown Verified 02/18/19 10:38 prednisone AdvReac Severe projectile Unverified 02/18/19 10:38 vomiting General Stated Complaint: Abd Prob SARITA: 3 Review of Systems Constitutional Constitutional: Denies chills, Denies fatigue, Denies fever(s), Denies headache(s) and Denies lethargy ENT Ears, Nose, Mouth, and Throat: Denies dizziness, Denies headache(s) and Denies neck pain Cardiovascular Cardiovascular: Denies chest pain, Denies pedal edema, Denies edema, Denies dyspnea and Denies orthopnea Respiratory Respiratory: Denies dyspnea Gastrointestinal Gastrointestinal: Denies diarrhea, Denies loose stools, Denies nausea and Denies vomiting Genitourinary Genitourinary: Denies abnormal menses, Denies abnormal vaginal bleeding, Denies amenorrhea, Reports metrorrhagia, Denies hematuria, Denies dysuria, Denies pelvic pain, Reports flank pain, Denies urinary incontinence, Denies urinary hesitancy and Denies urinary urgency Musculoskeletal Musculoskeletal: Denies back pain, Denies deformity, Reports muscle cramps, Denies muscle weakness, Denies neck pain, Denies numbness, Denies stiffness and Denies tingling Neurologic Neurologic: Denies dizziness, Denies headache(s), Denies focal weakness, Denies numbness, Denies radicular pain, Denies sensory deficit and Denies tingling Endocrine Endocrine: Denies fatigue [facility] Medical History Abnormal uterine bleeding (Chronic) Heavy menstrual bleeding, uterine fibroids on pelvic US Diverticulosis of colon (Chronic) Gastroesophageal reflux disease (Chronic) Hyperlipidemia (Chronic) Iron deficiency anemia due to chronic blood loss (Chronic) Moderate persistent asthma without complication (Chronic) Obesity (Chronic) LINETTE (obstructive sleep apnea) (Chronic) Prediabetes (Chronic) Surgical History Cholecystectomy (Inactive 03/1994) Family History Mother Hyperlipidemia Type 2 diabetes mellitus Essential hypertension Father , at 44 of [place], cardiomyopathy Heart disease Hyperlipidemia Myocardial infarction Type 2 diabetes mellitus Essential hypertension Sister Essential hypertension Hyperlipidemia Endometrial cancer Brother , at 19 of MVA No problems noted. Son Asthma Daughter No problems noted. Maternal Grandfather , at 86 of lung cancer Heart disease Lung cancer Maternal Grandmother , at 84 of breast CA Essential hypertension Breast cancer Paternal Grandfather , at 67 COPD (chronic obstructive pulmonary disease) Paternal Grandmother , at 86 of endometrial cancer Endometrial cancer Social History Smoking/Tobacco Use Status: Never Second Hand Exposure: Yes Alcohol Intake: never Drug use: Never Substance use type: does not use Caregiver/Support person: No Household members: spouse and children Housing: house Communication Needs: None Do you need help understanding health information?: Never Pets and animals: Yes Pets and animals: cat(s) and dog(s) Sexually active: Yes Do you think of yourself as: straight/heterosexual Current gender identity: female What is your relationship status?: How often do you talk on the phone with friends or family?: three or more times per week How often do you get together with friends or relatives?: twice per week How often do you attend hindu or oriental orthodox services?: 4 or more times per year Do you belong to any clubs or organized social groups?: no Panel score (0-1 are the most socially isolated patients): 3 What type of physical activity do you participate in: walking Duration: decline to answer Frequency: 1-2 times per week Екатерина/Sikhism: Evangelical Special екатерина needs: No Seatbelt use: always Helmet use: Yes Drive intox or ride w/intox racing car driver: No Do you feel safe at home: Yes Do you feel safe in your relationship?: Yes Female Reproductive History Menstrual control method: other (Vasectomy) History History 2 Para 2 Hx # Term Pregnancies Multiple births Hx # Pregnancies Ectopic pregnancies AB induced Hx Number of Living Children 2 AB spontaneous Exam Const General: cooperative, acute distress moderate and in distress Nutritional Appearance: obese Orientation: alert, awake and oriented x3 Neck Neck: normal visual inspection Chest Chest: normal inspection of the chest Resp Effort & Inspection: normal respiratory effort and able to speak in complete sentences Auscultation: clear to auscultation bilaterally Cardio Rate: regular rate Rhythm: regular rhythm Pulses: normal peripheral pulses GI Inspection: normal to inspection Palpation: soft Back/Spine/Pelvis Back: no CVA tenderness Cervical Spine: normal cervical lordosis Thoracic/Lumbar Spine: paraspinal tenderness and thoraco-lumbar ROM limited Skin General skin exam: no rashes or lesions noted Neuro General: alert, awake and oriented x3 Cranial Nerves: CN's II-XI intact bilaterally Motor: muscle tone normal throughout Sensory Exam: no sensory deficits noted Course Vital Signs Vital signs: Vital Signs Temperature 36.7 C 02/18/19 10:30 Pulse 88 02/18/19 10:30 Respiratory Rate 20 02/18/19 10:30 Pulse Oximetry 100 02/18/19 10:30 Temperature 36.7 C 02/18/19 10:30 Temperature Source Skin 02/18/19 10:30 Pulse 88 02/18/19 10:30 Respiratory Rate 20 02/18/19 10:30 Pulse Oximetry 100 02/18/19 10:30 Oxygen Delivery Method Room Air 02/18/19 10:30 Oxygen Flow Rate 0 02/18/19 10:30 Pain Level 10 02/18/19 10:30 Comment 02/18/19 10:30
[2019-02-18] MEDS: Normal Saline 1,000 ML 150 ML IV (10:40)
[2019-02-18] MEDS: diazePAM 10 MG/2 ML SYR 5 MG IVP ×2 (10:42→11:18)
[2019-02-18] MEDS: fentaNYL 100 MCG/2 ML VIAL 50 MCG IVP (10:44)
[2019-02-18 11:10] LABS: Abs Immature Grans 0.03 k/cumm (0.0-0.09); Absolute Basophil Count 0.02 k/cumm (0.0-0.2); Absolute Eosinophil Count 0.11 k/cumm (0.0-0.7); Absolute Lymphocyte Count 1.44 k/cumm (1.2-3.4); Absolute Monocyte Count 0.82 k/cumm (0.11-0.7); Absolute Neutrophil Count 6.84 k/cumm (1.2-6.7); Basophils % 0.2; Eosinophils % 1.2; HCT 33.4 % (36.0-46.0); HGB 10.7 g/dL (12.0-15.5); Immature Grans % 0.3; Lymphocytes % 15.6; Mean Corpuscular Hemoglobin 25.4 pg (27.0-33.0); Mean Corpuscular Volume 79.1 fL (80-95); Mean Platelet Volume 9.8 fL (8.0-11.0); Monocytes % 8.9; Neutrophils % 73.8; Platelet Count 426 x1000/uL (130-400); RBC 4.22 m/cumm (4.00-5.20); RBC Distribution Width 15.9 % (11.7-14.6); White Blood Cell Count 9.26 k/cumm (4.4-10.8)
[2019-02-18] MEDS: fentaNYL 100 MCG/2 ML VIAL IVP (11:19)
[2019-02-18 11:31] LABS: ALT 14 U/L (14-59); AST 11 U/L (15-37); Albumin 3.4 g/dL (3.4-5.0); Alkaline Phosphatase 63 U/L (46-116); Anion Gap 12.4 mmol/L (3-11); BUN 7 mg/dL (7-18); Bilirubin, Total 0.4 mg/dL (0.2-1.0); CO2 22.6 mmol/L (21.0-32.0); CREATININE 0.78 mg/dL (0.55-1.02); Calcium 8.8 mg/dL (8.5-10.1); Chloride 105 mmol/L (98-107); Glucose 105 mg/dL (70-100); Potassium 3.8 mmol/L (3.5-5.1); Sodium 140 mmol/L (136-145); Total Protein 7.7 g/dL (6.4-8.2)
[2019-02-18] MEDS: HYDROmorphone 2 MG/ML VIAL 1 MG IVP ×2 (12:27→15:04)
[2019-02-18 12:32] LABS: Bilirubin Negative (Negative); Blood Moderate (Negative); Clarity Clear (Clear); Glucose Negative (Negative); Ketones Negative (Negative); Leukocyte Esterase Negative (Negative); Nitrite Negative (Negative); Urobilinogen 0.2 EU/dL (Up TO 0.2)
[2019-02-18 12:52] LABS: Bacteria Negative HPF (Negative); C & S Indicated? No; Casts Negative LPF (Negative); Crystals Negative HPF (Negative); Epithelial Cells Few HPF (Negative); Mucus Negative (Negative); Other Cells Rare Renal (Negative); WBC 0-2 HPF (0-5)
--- NOTE | 2019-02-18 15:49 | HPE_ITS ---
Date of service: 02/18/19 Time of Service: 16:47 Assessment and Plan Assessment and plan (1) Back pain: Status: Acute Assessment and plan: Intractable low back pain. Consider lumbar spine pathology, sciatic nerve impingement, piriformis syndrome, right hip pathology. She had a CT abdomen/pelvis 2 days ago in the ER, no discussion of lumbar spine. Radiology is not available at this time, contact radiology tomorrow to ask them to review previous CT images for lumbar spine pathology. Consider imaging right hip. IV solumedrol, soma QID for muscle spasms, dilaudid for severe pain. Lidoderm patch and aqua K Samson. Zofran for nausea. No NSAIDs due to anaphylaxis. Consult PT. (2) LINETTE (obstructive sleep apnea): Status: Chronic Assessment and plan: May use home CPAP. (3) Gastroesophageal reflux disease: Status: Chronic Assessment and plan: Continue PPI therapy with omeprazole daily. (4) DVT prophylaxis: Status: Acute Assessment and plan: Subcutaneous lovenox. (5) Discharge planning issues: Status: Acute Assessment and plan: She is a FULL CODE. This case was discussed with Dr. Zafar who is in agreement. History of Present Illness History of Present Illness Chief Complaint: Low back pain Narrative: Barb Gant is a very pleasant 48 year old female with a past medical history significant for obesity, obstructive sleep apnea, wears CPAP, prediabetes, iron deficiency anemia, abnormal uterine bleeding, GERD, uterine fibroids and diverticulosis who was seen 2 days ago in the emergency department for right flank and abdominal pain. At that time she had a CT abdomen which was negative for an acute process. There was concern that this could represent gastritis or ulcerative disease. She was discharged home with increased PPI dosing as well as Carafate and Bentyl with a follow-up plan for possible outpatient EGD. She presented back to the emergency department today with a report of severe lumbar back pain and muscle spasms that was not relieved with IV dilaudid and valium. Her labs in the ED showed normal renal function, anemia with hgb 10.7, which appears near baseline (also currently having menses), no leukocytosis. She is admitted to the med/surg floor for further evaluation and management. At the time of her admission to the MedSurg floor, she is lying on the stretcher with her head elevated, she reports that she is fairly comfortable if she does not move. She describes the pain as being in her right lower back extending down into her hip and buttock and occasionally down her leg to her knee. She reports that this pain has been intermittent for about 5 months, she has been to her chiropractor 7 times for this pain with no relief. Over the last 7 days, the pain has been progressively worsening. She has not been able to get comfortable in any position. She normally takes acetaminophen for pain. She has used heat and ice with minimal relief. She does not recall injuring her back. 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 With the pain, she has had a decreased appetite and intermittent nausea, no vomiting. She has been in her usual state of health otherwise. No shortness of breath, coughing, wheezing, chest pain/pressure, palpitations. She denies dysuria or hematuria. Review of Systems Review of Systems ROS Unobtainable: All systems reviewed & are unremarkable except as noted in HPI and below PFS Medical History Abnormal uterine bleeding (Chronic) Heavy menstrual bleeding, uterine fibroids on pelvic US Diverticulosis of colon (Chronic) Gastroesophageal reflux disease (Chronic) Hyperlipidemia (Chronic) Iron deficiency anemia due to chronic blood loss (Chronic) Moderate persistent asthma without complication (Chronic) Obesity (Chronic) LINETTE (obstructive sleep apnea) (Chronic) Prediabetes (Chronic) Surgical History Cholecystectomy (Inactive 03/1994) Family History Mother Hyperlipidemia Type 2 diabetes mellitus Essential hypertension Father , at 44 of [place], cardiomyopathy Heart disease Hyperlipidemia Myocardial infarction Type 2 diabetes mellitus Essential hypertension Sister Essential hypertension Hyperlipidemia Endometrial cancer Brother , at 19 of MVA No problems noted. Son Asthma Daughter No problems noted. Maternal Grandfather , at 86 of lung cancer Heart disease Lung cancer Maternal Grandmother , at 84 of breast CA Essential hypertension Breast cancer Paternal Grandfather , at 67 COPD (chronic obstructive pulmonary disease) Paternal Grandmother , at 86 of endometrial cancer Endometrial cancer Social History Smoking/Tobacco Use Status: Never Second Hand Exposure: Yes Alcohol Intake: never Drug use: Never Substance use type: does not use Caregiver/Support person: No Household members: spouse and children Housing: house Communication Needs: None Do you need help understanding health information?: Never Pets and animals: Yes Pets and animals: cat(s) and dog(s) Sexually active: Yes Do you think of yourself as: straight/heterosexual Current gender identity: female What is your relationship status?: How often do you talk on the phone with friends or family?: three or more times per week How often do you get together with friends or relatives?: twice per week How often do you attend yarsani or oriental orthodox services?: 4 or more times per year Do you belong to any clubs or organized social groups?: no Panel score (0-1 are the most socially isolated patients): 3 What type of physical activity do you participate in: walking Duration: decline to answer Frequency: 1-2 times per week Екатерина/Yazdanism: Orthodoxy Special екатерина needs: No Seatbelt use: always Helmet use: Yes Drive intox or ride w/intox new aut[employer] delivery driver: No Do you feel safe at home: Yes Do you feel safe in your relationship?: Yes Female Reproductive History Menstrual control method: other (Vasectomy) History History 2 Para 2 Hx # Term Pregnancies Multiple births Hx # Pregnancies Ectopic pregnancies AB induced Hx Number of Living Children 2 AB spontaneous Meds Home Medications and Allergies Home Medications Medication Instructions Recorded Confirmed Type ferrous sulfate 325 mg PO DAILY #100 tab 12/22/14 02/18/19 History albuterol sulfate [ProAir HFA] 2 puff INHALATION Q6H PRN #1 08/29/16 02/18/19 History inhaler albuterol sulfate 1 vial INHALATION Q 4-6 HR PRN 08/29/17 02/18/19 Rx #100 vial montelukast 10 mg tablet 10 mg PO QPM #90 tab 05/14/18 02/18/19 Rx Advair Diskus 500 mcg-50 mcg/dose 1 inh INHALATION BID #60 each NS 11/24/18 02/18/19 Rx powder for inhalation dicyclomine 20 mg PO TID #10 tab 02/16/19 02/18/19 Rx pantoprazole [Protonix] 40 mg PO DAILY #14 tab 02/16/19 02/18/19 Rx sucralfate [Carafate] 1 gm PO BID #10 tab 02/16/19 02/18/19 Rx diazepam [Valium] 5 mg PO TID PRN #20 tab 02/19/19 Rx hydromorphone [Dilaudid] 2 mg PO Q6H PRN #15 tab 02/19/19 Rx Allergies Allergy/AdvReac Type Severity Reaction Status Date / Time aspirin Allergy Severe ANAPHYLAXIS Verified 02/18/19 10:38 codeine Allergy Severe ANALHYLAXIS Verified 02/18/19 10:38 mometasone furoate Allergy Severe ANAPHYLAXIS, Verified 02/18/19 10:38 [From Asmanex Twisthaler] ADVAIR OK TO TAKE NSAIDS (Non-Steroidal Allergy Severe ANAPHYLAXIS Verified 02/18/19 10:38 Anti-Inflamma Penicillins Allergy Unknown Verified 02/18/19 10:38 prednisone AdvReac Severe projectile Unverified 02/18/19 10:38 vomiting Exam Narrative Exam Narrative: General: Overweight, middle-aged female, in no acute distress at rest, appears uncomfortable with position changes. Alert and oriented, pleasant cooperative. Answers questions properly. HEENT: Normocephalic, atraumatic, pupils equal and round, EOMI, mucous membranes moist. Neck: Supple. Cardiovascular: Heart has regular rate and rhythm, soft systolic murmur noted at left sternal border. Respiratory: Respirations even and unlabored, lung sounds clear to auscultation bilaterally. Back: No significant tenderness noted on palpation of the lumbar spine, +tenderness noted on palpation of her paraspinal muscles on the right and right sciatic notch. Extremities: well perfused, no clubbing, cyanosis or edema. Results Labs Result diagrams: 02/19/19 07:02 02/19/19 07:02 Labs: Laboratory Results - last 24 hr 02/18/19 02/18/19 02/18/19 11:02 11:02 12:10 WBC 9.26 RBC 4.22 Hgb 10.7 L Hct 33.4 L MCV 79.1 L MCH 25.4 L MCHC 32.0 RDW 15.9 H Plt Count 426 H MPV 9.8 Immature Gran % 0.3 Neutrophils % 73.8 Lymphocytes % 15.6 Monocytes % 8.9 Eosinophils % 1.2 Basophils % 0.2 Absolute Neutrophils 6.84 H Absolute Lymphocytes 1.44 Absolute Monocytes 0.82 H Absolute Eosinophils 0.11 Absolute Basophils 0.02 Sodium 140 Potassium 3.8 Chloride 105 Carbon Dioxide 22.6 Anion Gap 12.4 H BUN 7 Creatinine 0.78 Estimated GFR/1.73 m2 >= 60.00 Glucose 105 H Calcium 8.8 Total Bilirubin 0.4 AST 11 L ALT 14 Alkaline Phosphatase 63 Total Protein 7.7 Albumin 3.4 Urine Color Yellow Urine Clarity Clear Urine pH 7.0 Ur Specific [place] 1.010 Urine Protein Negative Urine Ketones Negative Urine Blood Moderate H Urine Nitrite Negative Urine Bilirubin Negative Urine Urobilinogen 0.2 Ur Leukocyte Esterase Negative Urine RBC 3-5 H Urine WBC 0-2 Ur Epithelial Cells Few Urine Crystals Negative Urine Bacteria Negative Urine Casts Negative Urine Mucus Negative Urine Other Rare renal Ur Culture Indicated? No Urine Glucose Negative Last Vital Signs Temp 36.7 C 02/18/19 10:30 Pulse 71 02/18/19 15:00 Resp 16 02/18/19 15:01 BP 141/107 H 02/18/19 15:00 Pulse Ox 100 02/18/19 15:00
[2019-02-18] MEDS: Omeprazole 20 MG CAPCR PO (17:42)
[2019-02-18] MEDS: methylPREDNISolone SUCC 40 MG VIAL IVP (17:42)
[2019-02-18] MEDS: Acetaminophen 325 MG TAB PO ×2 (17:42→21:35)
[2019-02-18] MEDS: Enoxaparin 40 MG/0.4 ML SYR SC (17:43)
[2019-02-18] MEDS: Lidocaine 5% Patch 1 PATCH TP (18:01)
[2019-02-18] MEDS: Montelukast 10 MG TAB PO (19:16)
[2019-02-19] MEDS: HYDROmorphone 2 MG/ML VIAL 0.5 MG IVP ×2 (00:01→03:58)
[2019-02-19] MEDS: Normal Saline Flush 10 ML SYR IVP ×4 (00:02→11:27)
[2019-02-19 00:29] VITALS: BP 129/78; PULSE 97; RESP 18; TEMP 36.6; O2SAT 99
[2019-02-19 03:25] VITALS: BP 130/70; PULSE 96; RESP 20; TEMP 36.6; O2SAT 98
[2019-02-19 07:20] VITALS: BP 115/80; PULSE 59; RESP 18; TEMP 36.5; O2SAT 98
[2019-02-19 07:25] LABS: HCT 31.8 % (36.0-46.0); Mean Corp. HGB Concentration 31.4 g/dL (32.0-36.0); Mean Corpuscular Hemoglobin 25.3 pg (27.0-33.0); Mean Corpuscular Volume 80.3 fL (80-95); Mean Platelet Volume 9.8 fL (8.0-11.0); Platelet Count 402 x1000/uL (130-400); RBC 3.96 m/cumm (4.00-5.20); White Blood Cell Count 9.74 k/cumm (4.4-10.8)
[2019-02-19] MEDS: Acetaminophen 325 MG TAB PO (07:28)
[2019-02-19] MEDS: Omeprazole 20 MG CAPCR PO (07:29)
[2019-02-19 07:52] LABS: BUN 9 mg/dL (7-18); CREATININE 0.66 mg/dL (0.55-1.02); Calcium 8.5 mg/dL (8.5-10.1); Chloride 104 mmol/L (98-107); Glucose 104 mg/dL (70-100); Potassium 4.1 mmol/L (3.5-5.1); Sodium 139 mmol/L (136-145)
[2019-02-19 07:58] LABS: Magnesium 1.9 mg/dL (1.8-2.4)
--- NOTE | 2019-02-19 09:34 | INITIAL_ITS ---
- If Service Date Differs Date of service: 02/19/19 Time of Service: 09:34 Care Management Initial Assess REASON FOR HOSPITALIZATION:: Intractable Back Pain PAST MEDICAL HISTORY/PAST SURGICAL HISTORY:: Medical History. Abnormal uterine bleeding (Chronic). Heavy menstrual bleeding, uterine fibroids on pelvic US. Diverticulosis of colon (Chronic). Gastroesophageal reflux disease (Chronic). Hyperlipidemia (Chronic). Iron deficiency anemia due to chronic blood loss (Chronic). Moderate persistent asthma without complication (Chronic). Obesity (Chronic). LINETTE (obstructive sleep apnea) (Chronic). Prediabetes (Chronic). Surgical History. Cholecystectomy (Inactive 03/1994) PREVIOUS FUNCTIONAL STATUS/SOCIAL/FAMILY SUPPORTS:: Barb lives in [place], [place] with her , Lefty and daughter Jesus. They also have an adult son, who is supportive. 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 She is independent at baseline. CURRENT FUNCTIONAL STATUS:: Barb was lying in bed when CM met with her. Her and daughter were in the room with her. She was pleasant and engaged in conversation. She stated that she is still in pain, but it is not as bad as previously. She stated that she worked with PT, and had an MRI, which was negative. She reported that she is very happy with the care she has received at [facility]. CM will continue to follow. ADVANCE DIRECTIVES:: None on file Has patient been provided with information about the portal?: No Did the patient sign up for the portal?: No CODE STATUS:: Full Code INSURANCE COVERAGE / FINANCIAL ISSUES:: [employer]/Fin Assist 57% CURRENT HOME/COMMUNITY SERVICES/EQUIPMENT:: None at this time. PRIMARY CARE PHYSICIAN:: Julia Camacho POTENTIAL DISCHARGE NEEDS:: Evaluations for further needs, follow up [facility] PATIENT/FAMILY EDUCATION NEEDS:: Review community based supports, discharge plan, discussion of self care needs including Ask Me Three ANTICIPATED BARRIERS TO DISCHARGE:: None identified at this time. TRANSPORTATION:: Anticipate her , Lefty will drive her home via private vehicle. PLAN:: Anticipate Barb will return home with no additional services when medically cleared. She will follow up with her PCP and outpatient PT. Her will drive her home when ready via private vehicle. CM will continue to follow.
[2019-02-19] MEDS: diazePAM 10 MG/2 ML SYR IVP (11:27)
[2019-02-19 11:30] VITALS: BP 123/77; PULSE 72; RESP 21; TEMP 36.7; O2SAT 99
--- NOTE | 2019-02-19 13:08 | DI.MRI_ITS ---
EXAM: MR LUMBAR SPINE WO CLINICAL HISTORY: intractable back pain. TECHNIQUE: Multiplanar multisequence MRI was performed. FINDINGS: The exam is limited by the patient's body habitus. The vertebral bodies are well maintained in height . The marrow signal appears normal. The conus medullaris appears intact. There is a [id number] levoscoliosis. The T12-L1, L1-2, and L2-3 levels have a normal appearance. There is slight loss of di sc height and disc bulging at L3-4. There are mild facet joint degenerative changes with no significa nt neural foraminal narrowing or central canal stenosis. At L4-5, there is mild broad-based disc bulging. There are mild facet joint degenerative changes but no significant central canal stenosis or neural foraminal narrowing. The L5 disc shows minimal bulging. There are minimal facet joint degenerative changes. No disc hernia tion is seen at any level. IMPRESSION: Mild degenerative disc changes and facet degenerative changes. No evidence of a disc herniation or ot her acute abnormality.
--- NOTE | 2019-02-19 13:08 | DI.MRI_ITS ---
EXAM: MR LOWER JOINT RT WO CLINICAL HISTORY: intractable back pain. TECHNIQUE: Multiplanar multisequence MRI was performed. The exam is limited by the patient's body h abitus. COMPARISON: No exams were available for comparison FINDINGS: The marrow signal is normal. No joint effusion fracture is seen. No abnormal signal is seen in th e hip musculature. IMPRESSION: Negative MRI of the pelvis and right hip.
--- NOTE | 2019-02-19 13:37 | IN_ITS ---
Date of service: 02/19/19 PT Notes Inpatient Physical Therapy Evaluation Date: 02/19/2019 Referring Doctor: JOSE ALBERTO Brunson PT Orders: PT CONSULT: Eval/Treat Precautions: Fall. Standard. Activity as tolerated. Patient Profile/Admitting Diagnosis: Patient is a 48-year-old female who presented to the ED on 02/18/2019 with chief complaints of right flank pain and right lumbar region spasm. CT of the abdomen and pelvis showed no acute abnormality. MRI of the pelvis and hip is negative. Lumbar spine MRI did show mild degenerative changes and facet degenerative changes with mild disc bulging at the level of L3-L4, and L4-L5. PMHX: Medical History Abnormal uterine bleeding (Chronic) Heavy menstrual bleeding, uterine fibroids on pelvic US Diverticulosis of colon (Chronic) Gastroesophageal reflux disease (Chronic) Hyperlipidemia (Chronic) Iron deficiency anemia due to chronic blood loss (Chronic) Moderate persistent asthma without complication (Chronic) Obesity (Chronic) LINETTE (obstructive sleep apnea) (Chronic) Prediabetes (Chronic) Surgical History Cholecystectomy (Inactive 03/1994) Social History/Home Situation: Patient lives in a home with three steps to enter with her . She has two grown daughters as well. She was previously independent with all activities of daily living. She likes to bake a lot. Equipment Owned/DME: None. Subjective: Patient reports a ?catching? pain in her right low back. She states that it is better at rest, and worse with movement. She reports the pain is worse with heat, and better with ice. She states she has been experiencing this pain since September 2018 after rolling onto the stretcher for a CT scan. 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 She denies headache, dizziness, and lightheadedness, and is agreeable to PT evaluation. Objective: General Observation: Patient is seen laying supine in bed with HOB elevated. She has a disconnected IV in her R UE. Mental Status: Alert and oriented x 4 Pain: Quantified as a 1.5/10 at rest, and a 10/10 during position changes. ROM: Trunk: Flexion WFL with no relief of pain. Extension WFL with mild increase in pain. Trunk lateral flexion to R and L markedly decreased to about 10degrees from neutral due to pain. Right Lower Extremity: Hip flexion allows about 10 degrees. Hip abduction WFL. Knee flexion WFL. Ankle dorsiflexion WFL. Ankle plantarflexion WFL. Left Lower Extremity: Hip flexion WFL. Hip abduction WFL. Knee flexion WFL. Ankle dorsiflexion WFL. Ankle plantarflexion WFL. Strength: Not assessed due to pain. Grossly 3-/5 for hip flexion and knee extension on the right side. Grossly 4-/5 on the L LE. Bed Mobility/Transfers: Rolling Independent Supine to sit Independent Sit to supine Independent Sit to stand Independent Stand to sit Independent Bed to chair SBA Chair to bed SBA Gait: Patient ambulated 50? using a FWW, and exhibited a reciprocal gait pattern. She had decreased step length, decreased martell, and decreased gait velocity. Upon pivoting to the right, she complained of severe pain and then used a step-to gait pattern for 50? with significantly decreased step length on the R. Balance: Static Sitting: Normal Dynamic Sitting: Normal Static Standing: Normal Dynamic Standing: Good Special Tests: Mobility Limitations Standardized Measure [facility] AM-PAC 6 clicks Basic Mobility Inpatient Short Form: Raw Score: CMS Score: [] Straight Leg Raise: Increased pain on R side with patient able to do about 15-20 degrees. Unremarkable findings on L side, patient was able to lift actively up to 60 degrees. FADIR/FAIR Test: Positive before internal rotation is applied on right side. Unremarkable findings on L side. Informed Consent/Education: Patient instructed in purpose of PT consult and plan of care. Assessment: Patient is a 48-year old female admitted to the medical/surgical unit with complaints of back pain. She lives in a house with her , that has three steps to enter. Together, they have two grown daughters. 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 She is tender to palpation along the posterior aspect of the iliac crest. Her pain is very provocative during position changes. Her FADIR test was positive before internal rotation was applied, indicating that the piriformis muscle may be a source of her pain. Due to the chronicity of her pain, she exhibited signs and symptoms consistent with low back pain with movement coordination impairment. Patient presents with clinical signs and symptoms consistent with current/admitting diagnoses that have resulted to mobility limitations, gait instability, generalized weakness, and impairment of motor control as demonstrated by the following impairment level findings: 1. Decreased strength to B LE major muscle groups 2. Impaired sitting/standing tolerance 3. Impaired activity tolerance 4. Global limitation of joint range of motion in B LE and trunk. Impairments are contributing to the following functional limitations: 1. Inability to safely ambulate without assistive device and physical karthik tance 2. Increase completion time for mobility ADL performance 3. Increased fall risk 4. Inability to negotiate steps alone safely Patient is assessed as a 30834 moderate complexity based on the following: History: 48-year-old female with intractable low back pain Examination: Demonstrable impairment in strength, balance, and range of motion with underlying impairments and functional limitations as documented above Presentation: Evolving Decision Makin Moderate complexity Goals: Goals X1 week 1. Independent gait on level surface with use of least restrictive device for at least 300 feet without report of pain nor dyspnea 2. Independent stair negotiation while holding onto bilateral rails for at least 10 steps without report of pain nor dyspnea 3. Independent with home exercise program 4. Good static and dynamic standing balance/tolerance Plan of Care/Treatment Plan: 1-2x/day, 7 days/week x 1 week. Plan of care has been reviewed with the MANAGER INPATIENT providing the service under Physical Therapy direction. Initiate Physical Therapy intervention for strengthening, bed mobility, transfers, gait, stairs, balance training, use of assistive device. DISCHARGE RECOMMENDATIONS: Patient is to be discharged to home under the care of her , after all of the above goals are met, and she is medically stable. Patient will highly benefit from using a FWW in [facility] to maximize mobility independence while reducing pain complaint. TREATMENT CODE/TIME: 45612 x 30 minutes, 15195 x 25 minutes Thank you very much for this referral. Bay Mccracken, SPT [facility] Cinthia Foss PT, DPT, CLT Carmine Garduno, [facility]
--- NOTE | 2019-02-19 13:56 | DSE_ITS ---
Documented by User: Janet Rutherford NP 02/19/19 14:23 Date of service: 02/19/19 Time of Service: 13:56 DS: Diagnosis Discharge Diagnosis (1) Back pain: Start date: 02/19/19 Start time: 13:56 Status: Acute Asessment and Plan: Improving. MRI negative for herniation or impingement. Will give valuim for pain and (2) LINETTE (obstructive sleep apnea): Status: Chronic (3) Gastroesophageal reflux disease: Status: Chronic (4) DVT prophylaxis: Status: Acute (5) Discharge planning issues: Status: Acute Discharge Plan Disposition Patient Disposition: HOME Condition: Improving Discharge Details Chief Complaint: Abd Prob Clinical Impression: Intractable low back pain, Lumbar paraspinal muscle spasm Reason For Visit: INTRACTABLE BACK PAIN Admit Date/Time: 02/18/19 14:51 Admit Provider: Jovi Zafar Attending Provider: Jovi Zafar Primary Care Provider: Julia Camacho ED Provider: Srikanth Biswas [facility] Course Hospital Course: Mrs. Gant is a 48 y.o female with PMH of obesity, obstructive sleep apnea, wears CPAP, prediabetes, iron deficiency anemia, abnormal uterine bleeding, GERD, uterine fibroids and diverticulosis. Admitted to [facility] m/s for intractable back pain. She was admitted after several days of severe flank pain abd pain worked up in the ED 2 days prior to admission. At the time CT scan revealed negative acute process and she was discharged on bentyl and carafate. After 24 hours she presented back to the ED with severe back spasms and pain, thought to have possible kidney stones or severe infection, however Imaging and labs revealed no acute process. She was admitted for pain control, PT and further testing. Today further MRI imaging reveals no impingement, or disc hernation there are mild bulging discs at L3-L5; moreover she denies numbness and tingling. Likely this is muscoskeletal with sciatic involvement. Patient agrees to discharge home with outpatient PT, valium for spasms, dilaudid for pain due to multiple drug a llergies and follow up with PCP this week. She also at this time is requiring a FWW, which will be arranged by CM. She denies CP, SOB, N/V/D Home Meds and New Rx's Prescriptions: New diazepam [Valium] 5 mg tablet 5 mg PO TID PRN (Reason: muscle spasm) Qty: 20 RF: 0 hydromorphone [Dilaudid] 2 mg tablet 2 mg PO Q6H PRN (Reason: pain) Qty: 15 RF: 0 Continued ferrous sulfate 325 MG tablet 325 mg PO DAILY Qty: 100 RF: 3 albuterol sulfate [ProAir HFA] 8.5 GM HFA aerosol inhaler 2 puff Inhalation Q6H PRN Qty: 1 RF: 11 albuterol sulfate 2.5 MG/3 ML solution for nebulization 1 vial Inhalation Q 4-6 HR PRN Qty: 100 RF: 4 montelukast [Singulair] 10 mg tablet 10 mg PO QPM Qty: 90 RF: 4 fluticasone propion-salmeterol [Advair Diskus] 500-50 mcg/dose blister with device 1 inh Inhalation BID Qty: 60 RF: 11 dicyclomine 20 mg tablet 20 mg PO TID Qty: 10 RF: 0 sucralfate [Carafate] 1 gram tablet 1 gm PO BID Qty: 10 RF: 0 pantoprazole [Protonix] 40 mg tablet,delayed release (DR/EC) 40 mg PO DAILY Qty: 14 RF: 0 Discharge Instructions Instructions: Sciatica (GEN), Non-pharmacological Pain Management Therapies for Adults (GEN), Narcotic Pain Management (GEN), Piriformis Syndrome (GEN), Lower Back Exercises (GEN) Additional Instructions: Take valium for muscle spasms do not exceed three tabs in 1 day. Take tylenol for pain first then Dilaudid for pain take as needed if tylenol does not work. Follow up with your primary provider this week. Rest and apply heat and ICE four times a day for pain Follow up with Physical therapy for strengthening exercises. Stand Alone Forms: Nursing Discharge Form Referrals: Babak Garduno PT [PHYSICAL THERAPIST] - 02/25/19 3:00 pm Activity:: Rest for a couple of days Equipment/Supplies:: FWW Diet:: As Tolerated Discharge Orders Discharge Orders: Discharge Order (Routine); Ordered 02/19/19 Ordered By: Janet Rutherford Discharge Data Discharge Date/Time-TO BE ENTERED AT DEPARTURE: 02/19/19 15:26 DS: Summary Status at Discharge Functional status at discharge: uses cane/walker Overall status at discharge: patient is progressing back to baseline Mental Status: mental status grossly normal Speech and Movement: speech and movement normal Mood: congruent mood Affect: normal affect Exam Narrative Exam Narrative: General: Overweight, middle-aged female, in no acute distress at rest, appears uncomfortable with position changes. Alert and oriented, pleasant cooperative. Answers questions properly. HEENT: Normocephalic, atraumatic, pupils equal and round, EOMI, mucous membranes moist. Neck: Supple. Cardiovascular: Heart has regular rate and rhythm, soft systolic murmur noted at left sternal border. Respiratory: Respirations even and unlabored, lung sounds clear to auscultation bilaterally. Back: No significant tenderness noted on palpation of the lumbar spine, +tender ness noted on palpation of her paraspinal muscles on the right and right sciatic notch. Extremities: well perfused, no clubbing, cyanosis or edema. Psych Mental Status: mental status grossly normal Speech and Movement: speech and movement normal Mood: congruent mood Affect: normal affect DS: Data Vitals/I&O Vitals and I&O: Vital Signs Temperature 36.7 C 02/19/19 11:30 Temperature Source Temporal Artery Scan 02/19/19 11:30 Pulse 72 02/19/19 11:30 Pulse Rhythm Regular 02/19/19 07:36 Pulse 72 02/18/19 15:01 Respiratory Rate 21 02/19/19 11:30 Respiratory Effort Non-Labored 02/19/19 07:36 Respiratory Depth Normal 02/19/19 07:36 Respiratory Pattern Normal 02/19/19 07:36 Blood Pressure 123/77 02/19/19 11:30 Blood Pressure Mean 115 02/18/19 15:00 Pulse Oximetry 99 02/19/19 11:30 Oxygen Delivery Method Room Air 02/19/19 11:30 Oxygen Flow Rate 0 02/19/19 11:30 Fraction of Inspired Oxygen (FIO2) 21 02/19/19 09:38 Pain Level 8 02/19/19 11:30 Comment 02/19/19 03:25 Intake & Output 02/18/19 02/19/19 02/19/19 23:59 11:59 23:59 Intake Total 240 / 240 0 / 2070 Output Total 450 / 450 1000 / 1000 Balance -210 / -210 1070 / 1070 Weight 134.9 kg 130.6 kg Intake: IV 1010 / 1010 Oral 240 / 240 1060 / 1060 Output: Urine 450 / 450 1000 / 1000 Other: Urine Color Straw Urine Appearance Clear Urine Odor Normal Voiding Methods Toilet Data Completed and Pending Completed studies during hospitalization [Text1]: Exam(s) a MRI:MR lower joint RT wo EXAM: MR LOWER JOINT RT WO CLINICAL HISTORY: intractable back pain. TECHNIQUE: Multiplanar multisequence MRI was performed. The exam is limited by the patient's body habitus. COMPARISON: No exams were available for comparison FINDINGS: The marrow signal is normal. No joint effusion fracture is seen. No abnormal signal is seen in the hip musculature. IMPRESSION: Negative MRI of the pelvis and right hip. Exam(s) a MRI:MR lumbar spine wo EXAM: MR LUMBAR SPINE WO CLINICAL HISTORY: intractable back pain. TECHNIQUE: Multiplanar multisequence MRI was performed. FINDINGS: The exam is limited by the patient's body habitus. The vertebral bodies are well maintained in height. The marrow signal appears normal. The conus medullaris appears intact. There is a [id number] levoscoliosis. The T12-L1, L1-2, and L2-3 levels have a normal appearance. There is slight loss of disc height and disc bulging at L3-4. There are mild facet joint degenerative changes with no significant neural foraminal narrowing or central canal stenosis. At L4-5, there is mild broad-based disc bulging. There are mild facet joint degenerative changes but no significant central canal stenosis or neural foraminal narrowing. The L5 disc shows minimal bulging. There are minimal facet joint degenerative changes. No disc herniation is seen at any level. IMPRESSION: Mild degenerative disc changes and facet degenerative changes. No evidence of a disc herniation or other acute abnormality. Labs on day of discharge: Labs from last 24 hours 02/19/19 02/19/19 02/19/19 07:02 07:02 07:02 WBC 9.74 RBC 3.96 L Hgb 10.0 L Hct 31.8 L MCV 80.3 MCH 25.3 L MCHC 31.4 L RDW 16.0 H Plt Count 402 H MPV 9.8 Sodium 139 Potassium 4.1 Chloride 104 Carbon Dioxide 25.0 Anion Gap 10.0 BUN 9 Creatinine 0.66 Estimated GFR/1.73 m2 >= 60.00 Glucose 104 H Calcium 8.5 Magnesium 1.9 02/18/19 02/18/19 15:39 15:39 WBC Cancelled RBC Cancelled Hgb Cancelled Hct Cancelled MCV Cancelled MCH Cancelled MCHC Cancelled RDW Cancelled Plt Count Cancelled MPV Cancelled Sodium Cancelled Potassium Cancelled Chloride Cancelled Carbon Dioxide Cancelled Anion Gap Cancelled BUN Cancelled Creatinine Cancelled Estimated GFR/1.73 m2 Cancelled Glucose Cancelled Calcium Cancelled Magnesium [facility] Medical History Abnormal uterine bleeding (Chronic) Heavy menstrual bleeding, uterine fibroids on pelvic US Diverticulosis of colon (Chronic) Gastroesophageal reflux disease (Chronic) Hyperlipidemia (Chronic) Iron deficiency anemia due to chronic blood loss (Chronic) Moderate persistent asthma without complication (Chronic) Obesity (Chronic) LINETTE (obstructive sleep apnea) (Chronic) Prediabetes (Chronic) Surgical History Cholecystectomy (Inactive 03/1994) Family History Mother Hyperlipidemia Type 2 diabetes mellitus Essential hypertension Father , at 44 of [place], cardiomyopathy Heart disease Hyperlipidemia Myocardial infarction Type 2 diabetes mellitus Essential hypertension Sister Essential hypertension Hyperlipidemia Endometrial cancer Brother , at 19 of MVA No problems noted. Son Asthma Daughter No problems noted. Maternal Grandfather , at 86 of lung cancer Heart disease Lung cancer Maternal Grandmother , at 84 of breast CA Essential hypertension Breast cancer Paternal Grandfather , at 67 COPD (chronic obstructive pulmonary disease) Paternal Grandmother , at 86 of endometrial cancer Endometrial cancer Social History Smoking/Tobacco Use Status: Never Second Hand Exposure: Yes Alcohol Intake: never Drug use: Never Substance use type: does not use Caregiver/Support person: No Household members: spouse and children Housing: house Communication Needs: None Do you need help understanding health information?: Never Pets and animals: Yes Pets and animals: cat(s) and dog(s) Sexually active: Yes Do you think of yourself as: straight/heterosexual Current gender identity: female What is your relationship status?: How often do you talk on the phone with friends or family?: three or more times per week How often do you get together with friends or relatives?: twice per week How often do you attend confucianism or jainism services?: 4 or more times per year Do you belong to any clubs or organized social groups?: no Panel score (0-1 are the most socially isolated patients): 3 What type of physical activity do you participate in: walking Duration: decline to answer Frequency: 1-2 times per week Екатерина/Mandaeism: Protestant Special екатерина needs: No Seatbelt use: always Helmet use: Yes Drive intox or ride w/intox m48/m60 tank driver: No Do you feel safe at home: Yes Do you feel safe in your relationship?: Yes Female Reproductive History Menstrual control method: other (Vasectomy) History History 2 Para 2 Hx # Term Pregnancies Multiple births Hx # Pregnancies Ectopic pregnancies AB induced Hx Number of Living Children 2 AB spontaneous Documented by User: Jovi Zafar MD 02/19/19 16:46 Discharge Plan Disposition Patient Disposition: HOME Condition: Improving Discharge Details Chief Complaint: Abd Prob Clinical Impression: Intractable low back pain, Lumbar paraspinal muscle spasm Reason For Visit: INTRACTABLE BACK PAIN Admit Date/Time: 02/18/19 14:51 Admit Provider: Jovi Zafar Attending Provider: Jovi Zafar Primary Care Provider: Julia Camacho ED Provider: Srikanth Biswas Hospital Course Hospital Course: Mrs. Gant is a 48 y.o female with PMH of obesity, obstructive sleep apnea, wears CPAP, prediabetes, iron deficiency anemia, abnormal uterine bleeding, GERD, uterine fibroids and diverticulosis. Admitted to [facility] m/s for intractable back pain. She was admitted after several days of severe flank pain abd pain worked up in the ED 2 days prior to admission. At the time CT scan revealed negative acute process and she was discharged on bentyl and carafate. After 24 hours she presented back to the ED with severe back spasms and pain, thought to have possible kidney stones or severe infection, however Imaging and labs revealed no acute process. She was admitted for pain control, PT and further testing. Today further MRI imaging reveals no impingement, or disc hernation there are mild bulging discs at L3-L5; moreover she denies numbness and tingling. Likely this is muscoskeletal with sciatic involvement. Patient agrees to discharge home with outpatient PT, valium for spasms, dilaudid for pain due to multiple drug allergies and follow up with PCP this week. She also at this time is requiring a FWW, which will be arranged by CM. She denies CP, SOB, N/V/D Home Meds and New Rx's Prescriptions: New diazepam [Valium] 5 mg tablet 5 mg PO TID PRN (Reason: muscle spasm) Qty: 20 RF: 0 hydromorphone [Dilaudid] 2 mg tablet 2 mg PO Q6H PRN (Reason: pain) Qty: 15 RF: 0 Continued ferrous sulfate 325 MG tablet 325 mg PO DAILY Qty: 100 RF: 3 albuterol sulfate [ProAir HFA] 8.5 GM HFA aerosol inhaler 2 puff Inhalation Q6H PRN Qty: 1 RF: 11 albuterol sulfate 2.5 MG/3 ML solution for nebulization 1 vial Inhalation Q 4-6 HR PRN Qty: 100 RF: 4 montelukast [Singulair] 10 mg tablet 10 mg PO QPM Qty: 90 RF: 4 fluticasone propion-salmeterol [Advair Diskus] 500-50 mcg/dose blister with device 1 inh Inhalation BID Qty: 60 RF: 11 dicyclomine 20 mg tablet 20 mg PO TID Qty: 10 RF: 0 sucralfate [Carafate] 1 gram tablet 1 gm PO BID Qty: 10 RF: 0 pantoprazole [Protonix] 40 mg tablet,delayed release (DR/EC) 40 mg PO DAILY Qty: 14 RF: 0 Discharge Instructions Instructions: Sciatica (GEN), Non-pharmacological Pain Management Therapies for Adults (GEN), Narcotic Pain Management (GEN), Piriformis Syndrome (GEN), Lower Back Exercises (GEN) Additional Instructions: Take valium for muscle spasms do not exceed three tabs in 1 day. Take tylenol for pain first then Dilaudid for pain take as needed if tylenol does not work. Follow up with your primary provider this week. Rest and apply heat and ICE four times a day for pain Follow up with Physical therapy for strengthening exercises. Stand Alone Forms: Nursing Discharge Form Referrals: Babak Garduno, PT [PHYSICAL THERAPIST] - 02/25/19 3:00 pm Activity:: Rest for a couple of days Equipment/Supplies:: FWW Diet:: As Tolerated Discharge Orders Discharge Orders: Discharge Order (Routine); Ordered 02/19/19 Ordered By: Janet Rutherford Discharge Data Discharge Date/Time-TO BE ENTERED AT DEPARTURE: 02/19/19 15:26 [facility] Medical History Abnormal uterine bleeding (Chronic) Heavy menstrual bleeding, uterine fibroids on pelvic US Diverticulosis of colon (Chronic) Gastroesophageal reflux disease (Chronic) Hyperlipidemia (Chronic) Iron deficiency anemia due to chronic blood loss (Chronic) Moderate persistent asthma without complication (Chronic) Obesity (Chronic) LINETTE (obstructive sleep apnea) (Chronic) Prediabetes (Chronic) Surgical History Cholecystectomy (Inactive 03/1994) Family History Mother Hyperlipidemia Type 2 diabetes mellitus Essential hypertension Father , at 44 of [place], cardiomyopathy Heart disease Hyperlipidemia Myocardial infarction Type 2 diabetes mellitus Essential hypertension Sister Essential hypertension Hyperlipidemia Endometrial cancer Brother , at 19 of MVA No problems noted. Son Asthma Daughter No problems noted. Maternal Grandfather , at 86 of lung cancer Heart disease Lung cancer Maternal Grandmother , at 84 of breast CA Essential hypertension Breast cancer Paternal Grandfather , at 67 COPD (chronic obstructive pulmonary disease) Paternal Grandmother , at 86 of endometrial cancer Endometrial cancer Social History Smoking/Tobacco Use Status: Never Second Hand Exposure: Yes Alcohol Intake: never Drug use: Never Substance use type: does not use Caregiver/Support person: No Household members: spouse and children Housing: house Communication Needs: None Do you need help understanding health information?: Never Pets and animals: Yes Pets and animals: cat(s) and dog(s) Sexually active: Yes Do you think of yourself as: straight/heterosexual Current gender identity: female What is your relationship status?: How often do you talk on the phone with friends or family?: three or more times per week How often do you get together with friends or relatives?: twice per week How often do you attend confucianism or jainism services?: 4 or more times per year Do you belong to any clubs or organized social groups?: no Panel score (0-1 are the most socially isolated patients): 3 What type of physical activity do you participate in: walking Duration: decline to answer Frequency: 1-2 times per week Екатерина/Mandaeism: Protestant Special екатерина needs: No Seatbelt use: always Helmet use: Yes Drive intox or ride w/intox m48/m60 tank driver: No Do you feel safe at home: Yes Do you feel safe in your relationship?: Yes History History 2 Para 2 Hx # Term Pregnancies Multiple births Hx # Pregnancies Ectopic pregnancies AB induced Hx Number of Living Children 2 AB spontaneous
--- NOTE | 2019-02-19 14:52 | CMDISCH_ITS ---
- If Service Date Differs Date of service: 02/19/19 Time of Service: 14:52 LACE Index Scoring Tool - Questions: Length of Stay (in days): 2 Acuity (Admit via E.D.?): Yes E.D. Visits: 3 - Answers: Total Score: 8 Risk of Readmission: Low Risk Care Management Discharge Reason for Hospitalization: Intractable Back Pain Discharge Plan: Barb will return home with no additional services at this time. She will follow up with her PCP and outpatient PT. Her will drive her ho me via private vehicle. Patient/Family Education Needs: Review discharge instructions including activity levels and medication, discussion of self care needs including Ask Me Three Services Needed at Discharge: Physical Therapy
--- NOTE | 2019-02-19 15:45 | CHAPLAIN ---
Barb was in bed. Her and daughter were visiting with her. She was experiencing pain and pushed the call button for the nurse. She was pleasant even though she was in pain. She was waiting to have an MRI. I explained my role and offered support.
--- NOTE | 2019-02-19 16:28 | INDS_ITS ---
Date of service: 02/19/19 Time of Service: 14:22 PT Notes Inpatient Physical Therapy Discharge Summary Dates: 02/19/2019 Dates of Service: 02/19/2019 only Referring Doctor: JOSE ALBERTO Brunson PT Orders: PT CONSULT: Eval/Treat Precautions: Fall. Standard. Activity as tolerated. Patient Profile/Admitting Diagnosis: Patient is a 48-year-old female who presented to the ED on 02/18/2019 with chief complaints of right flank pain and right lumbar region spasm. CT of the abdomen and pelvis showed no acute abnormality. MRI of the pelvis and hip is negative. Lumbar spine MRI did show mild degenerative changes and facet degenerative changes with mild disc bulging at the level of L3-L4, and L4-L5. PMHX: Medical History Abnormal uterine bleeding (Chronic) Heavy menstrual bleeding, uterine fibroids on pelvic US Diverticulosis of colon (Chronic) Gastroesophageal reflux disease (Chronic) Hyperlipidemia (Chronic) Iron deficiency anemia due to chronic blood loss (Chronic) Moderate persistent asthma without complication (Chronic) Obesity (Chronic) LINETTE (obstructive sleep apnea) (Chronic) Prediabetes (Chronic) Surgical History Cholecystectomy (Inactive 03/1994) Social History/Home Situation: Patient lives in a home with three steps to enter with her . She has two grown daughters as well. She was previously independent with all activities of daily living. She likes to bake a lot. Equipment Owned/DME: None. Subjective: Patient reports a ?catching? pain in her right low back. She states that it is better at rest, and worse with movement. She reports the pain is worse with heat, and better with ice. She states she has been experiencing this pain since September 2018 after rolling onto the stretcher for a CT scan. 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 She denies headache, dizziness, and lightheadedness, and is agreeable to PT evaluation. Objective: General Observation: Patient is seen laying supine in bed with HOB elevated. She has a disconnected IV in her R UE. Mental Status: Alert and oriented x 4 Pain: Quantified as a 1.5/10 at rest, and a 10/10 during position changes. ROM: Trunk: Flexion WFL with no relief of pain. Extension WFL with mild increase in pain. Trunk lateral flexion to R and L markedly decreased to about 10degrees from neutral due to pain. Right Lower Extremity: Hip flexion allows about 10 degrees. Hip abduction WFL. Knee flexion WFL. Ankle dorsiflexion WFL. Ankle plantarflexion WFL. Left Lower Extremity: Hip flexion WFL. Hip abduction WFL. Knee flexion WFL. Ankle dorsiflexion WFL. Ankle plantarflexion WFL. Strength: Not assessed due to pain. Grossly 3-/5 for hip flexion and knee extension on the right side. Grossly 4-/5 on the L LE. Bed Mobility/Transfers: Rolling Independent Supine to sit Independent Sit to supine Independent Sit to stand Independent Stand to sit Independent Bed to chair SBA Chair to bed SBA Gait: Patient ambulated 50? using a FWW, and exhibited a reciprocal gait pattern. She had decreased step length, decreased martell, and decreased gait velocity. Upon pivoting to the right, she complained of severe pain and then used a step-to gait pattern for 50? with significantly decreased step length on the R. Balance: Static Sitting: Normal Dynamic Sitting: Normal Static Standing: Normal Dynamic Standing: Good Special Tests: Mobility Limitations Standardized Measure [facility] 6 clicks Basic Mobility Inpatient Short Form: Raw Score: 21 CMS Score: 33% deficit Straight Leg Raise: Increased pain on R side with patient able to do about 15-20 degrees. Unremarkable findings on L side, patient was able to lift actively up to 60 degrees. FADIR/FAIR Test: Positive before internal rotation is applied on right side. Unremarkable findings on L side. Assessment: Patient is a 48-year old female admitted to the medical/surgical unit with complaints of back pain. She lives in a house with her , that has three steps to enter. Together, they have two grown daughters. 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 She is tender to palpation along the posterior aspect of the iliac crest. Her pain is very provocative during position changes. Her FADIR test was positive before internal rotation was applied, indicating that the piriformis muscle may be a source of her pain. Due to the chronicity of her pain, she exhibited signs and symptoms consistent with low back pain with movement coordination impairment. Patient presents with clinical signs and symptoms consistent with current /admitting diagnoses that have resulted to mobility limitations, gait instability, generalized weakness, and impairment of motor control as demonstrated by the following impairment level findings: 1. Decreased strength to B LE major muscle groups 2. Impaired sitting/standing tolerance 3. Impaired activity tolerance 4. Global limitation of joint range of motion in B LE and trunk. Impairments are contributing to the following functional limitations: 1. Inability to safely ambulate without assistive device and physical assistance 2. Increase completion time for mobility ADL performance 3. Increased fall risk 4. Inability to negotiate steps alone safely Goals: Goals X1 week 1. Independent gait on level surface with use of least restrictive device for at least 300 feet without report of pain nor dyspnea NOT MET 2. Independent stair negotiation while holding onto bilateral rails for at least 10 steps without report of pain nor dyspnea NOT MET 3. Independent with home exercise program NOT MET 4. Good static and dynamic standing balance/tolerance NOT MET Treatment Plan: Treatment today consisted of gentle piriformis stretch on the right side, slow posterior pelvic tilting, slow pelvic rocking to right and left, sustained a pressure on right piriformis, and ended with effleurage technique to bilateral paraspinals and bilateral lumbar areas after a short distance ambulation using the front wheel walker. DISCHARGE RECOMMENDATIONS: Patient is to be discharged to home under the care of her after all of the above goals are met and when she is medically stable. Patient will highly benefit from using a FWW in order to maximize mobility independence while reducing pain complaint. TREATMENT CODE/TIME: 30098 x 37 minutes beginning at 14:22 PM. Thank you very much for this referral. Cinthia Foss PT, DPT, CLT [facility]
== END 2019-02-19 15:26 | disposition home or self-care (01) ==
LOC: ER 15:30 → MS 15:58
PROVIDERS: Nurse Practitioner; Admitting Provider Internal Medicine; Emergency Provider Physician Assistant; PCP Nurse Practitioner Family; Visit Provider Internal Medicine
DX: M54.5 Low back pain (principal); M62.830 Muscle spasm of back; G47.33 Obstructive sleep apnea (adult) (pediatric); K21.9 Gastro-esophageal reflux disease without esophagitis; E66.9 Obesity, unspecified; Z68.42 Body mass index [BMI] 45.0-49.9, adult
CPT/HCPCS: 36415; 73721; 80048; 80053; 85027; 94640; 96361; 96374; 96375; 97110; 97162; 97530; 99222; 99239; 99285; J1650; 72148; 81003; 81015; 83735; 85025; 99219; 99284; G0378; J3010; J3360; J3490

== ENCOUNTER 2019-02-22 19:49 | Emergency (ER) | payer OTHER, SELFPAY ==
[2019-02-22 20:03] VITALS: BP 114/93; PULSE 100; RESP 26; TEMP 36.8; O2SAT 99
--- NOTE | 2019-02-22 20:10 | ED.GENADUL_ITS ---
Discharge Plan Disposition Patient Disposition: HOME Condition: Good Discharge Details Chief Complaint: Abd Prob Clinical Impression: Pneumonia, Back muscle spasm Primary Care Provider: Julia Camacho ED Provider: Yousif Kc Home Meds and New Rx's Prescriptions: New levofloxacin [Levaquin] 750 mg tablet 750 mg PO DAILY 10 Days Qty: 10 RF: 0 No Action methocarbamol 500 mg tablet 500 mg PO TID PRN (Reason: muscle spasms) Qty: 90 RF: 4 ferrous sulfate 325 MG tablet 325 mg PO DAILY Qty: 100 RF: 3 albuterol sulfate [ProAir HFA] 8.5 GM HFA aerosol inhaler 2 puff Inhalation Q6H PRN Qty: 1 RF: 11 albuterol sulfate 2.5 MG/3 ML solution for nebulization 1 vial Inhalation Q 4-6 HR PRN Qty: 100 RF: 4 montelukast [Singulair] 10 mg tablet 10 mg PO QPM Qty: 90 RF: 4 fluticasone propion-salmeterol [Advair Diskus] 500-50 mcg/dose blister with device 1 inh Inhalation BID Qty: 60 RF: 11 hydromorphone [Dilaudid] 2 mg tablet 2 mg PO Q6H PRN (Reason: pain) Qty: 15 RF: 0 dicyclomine 20 mg tablet 20 mg PO TID Qty: 10 RF: 0 sucralfate [Carafate] 1 gram tablet 1 gm PO BID Qty: 10 RF: 0 pantoprazole [Protonix] 40 mg tablet,delayed release (DR/EC) 40 mg PO DAILY Qty: 14 RF: 0 Discharge Instructions Instructions: Muscle Spasm (ED), Pneumonia (ED) Additional Instructions: At this time your CT scans of your abdomen and chest shows evidence of p neumonia. Your exam shows no evidence of spinal cord compression at this time. Please continue to take your methocarbamol and Dilaudid at home as prescribed by your primary care provider. You can take 1000 mg of Tylenol every 6 hours to supplement this. Please use a heating pad as often as possible. Avoid lifting anything heavier than [address] a referral for you for the spine clinic/pain center at [facility]. Please follow-up closely with them when they do contact you for this referral. If you notice any worsening of your symptoms, or any new symptoms such as vomiting, diarrhea, fever, chills, shortness of breath, chest pain, numbness, weakness, or fainting , please return immediately to the emergency department for reevaluation. Please follow up with your primary care provider as soon as possible for reassessment and reevaluation. As always, it was a pleasure participating in your medical care today. Referrals: Julia Camacho NP [Primary Care Provider] - Discharge Data Discharge Date/Time-TO BE ENTERED AT DEPARTURE: 02/23/19 01:50 Medical Decision Making <Cruz Diego MD - Last Filed: 02/22/19 23:14> 40-year-old female presents recurrent right flank pain that radiates to her abdomen, similar to that for which she was admitted to the hospital with discharged on February 19. Her work-up at that time included abdominal pelvis CT scan, lower extremity MRI, lumbar spine MRI. These imaging studies were notable for L3-4 disc bulge. She returns tonight with acute pain worsening over the day. She arrives in moderate to severe distress. She is borderline hypertensive with blood pressure 114/93, pulse is 100, respirations 26. Given the extensive negative work-up, I feel today's presentation is most consistent with right-sided sciatic type pain and paraspinous muscular spasm of the back. IV was placed and patient given parenteral analgesia, screening laboratories obtained. Patient with improvement of pain control, but then ambulated and had recurrent spasm, requiring a dose of muscle relaxant and additional aliquot of hydromorphone. She does have an elevated white blood cell count of 16. I feel I must exclude underlying renal colic, less likely pyelonephritis given urinalysis reveals trace blood, negative nitrates, negative leuk esterase, rare bacteria. Referred for CT which does reveal her basilar opacities of the lungs, possibly pneumonitis. This in context of her elevated white blood cell count, raises consideration of treatment with antibiotics, particularly given that it is a new finding. She has had fairly significant pain but is improving. Patient will obtain CT scan of the chest to rule out mass, other atypical finding. We will administer a gram of Levaquin and patient be signed out to Dr. Kc pending final reevaluation and probable discharge to home with a course of oral biotics and ongoing use of her previously prescribed pain medicines. Lab Data Lab results reviewed: Yes I reviewed the patient's lab results. Labs: Laboratory Results - last 24 hr 02/22/19 02/22/19 02/22/19 20:01 20:09 20:23 WBC RBC Hgb Hct MCV MCH MCHC RDW Plt Count MPV Immature Gran % Neutrophils % Band Neutrophils % Lymphocytes % Atypical Lymphs % Monocytes % Eosinophils % Basophils % Absolute Neutrophils Absolute Lymphocytes Absolute Monocytes Absolute Eosinophils Absolute Basophils Differential Comment RBC Morphology Sodium Cancelled Potassium Cancelled Chloride Cancelled Carbon Dioxide Cancelled Anion Gap Cancelled BUN Cancelled Creatinine Cancelled Estimated GFR/1.73 m2 Cancelled Glucose Cancelled Calcium Cancelled Magnesium Cancelled 1.7 L Total Bilirubin Cancelled AST Cancelled ALT Cancelled Alkaline Phosphatase Cancelled Total Protein Cancelled Albumin Cancelled Lipase 72 L Urine Color Urine Clarity Urine pH Ur Specific [place] Urine Protein Urine Ketones Urine Blood Urine Nitrite Urine Bilirubin Urine Urobilinogen Ur Leukocyte Esterase Urine RBC Urine WBC Ur Epithelial Cells Urine Crystals Urine Bacteria Urine Casts Urine Mucus Urine Other Ur Culture Indicated? Urine Glucose 02/22/19 02/22/19 20:23 20:50 WBC 16.25 H RBC 4.67 Hgb 11.7 L Hct 36.5 MCV 78.2 L MCH 25.1 L MCHC 32.1 RDW 16.1 H Plt Count 458 H MPV 9.7 Immature Gran % 0.0 Neutrophils % 81.0 Band Neutrophils % 0.0 Lymphocytes % 10.0 Atypical Lymphs % 0 Monocytes % 7.0 Eosinophils % 2.0 Basophils % 0.0 Absolute Neutrophils 13.16 H Absolute Lymphocytes 1.63 Absolute Monocytes 1.14 H Absolute Eosinophils 0.33 Absolute Basophils 0.00 Differential Comment Manual differential RBC Morphology Normal Sodium Potassium Chloride Carbon Dioxide Anion Gap BUN Creatinine Estimated GFR/1.73 m2 Glucose Calcium Magnesium Total Bilirubin AST ALT Alkaline Phosphatase Total Protein Albumin Lipase Urine Color Yellow Urine Clarity Clear Urine pH 7.0 Ur Specific [place] 1.015 Urine Protein Negative Urine Ketones Negative Urine Blood Trace-intact H Urine Nitrite Negative Urine Bilirubin Negative Urine Urobilinogen 0.2 Ur Leukocyte Esterase Negative Urine RBC 0-2 Urine WBC Negative Ur Epithelial Cells Rare Urine Crystals Negative Urine Bacteria Rare Urine Casts Negative Urine Mucus Negative Urine Other Negative Ur Culture Indicated? No Urine Glucose Negative <Yousif Kc DO - Last Filed: 02/23/19 02:59> Case was signed out to me by Dr. Cruz Diego pending CT scan results of the chest, as well as reevaluation. CT scan of the chest reveals evidence of airspace opacities in the lower lobes, concerning for pneumonia. Dr. Diego had seen these findings on CT of the abdomen and had started Levaquin for the patient. Currently the patient is resting comfortably, pain has notably improved from a 10 out of 10 to a 3 out of 10. She is feeling much better at this time. Remainder of her vital signs are unremarkable, heart rate, blood pressure, respirations are all normal. She is afebrile. The remainder of her laboratory work-up demonstrates a white count of 16, no bandemia, mild left shift. Electrolytes normal, urinalysis negative for infection. At this time I feel that her pain is likely secondary to notable muscle spasm from her disc bulge, however time of recent evaluation she shows no clinical evidence of cauda equina syndrome or cord compression. No saddle anesthesia, bowel or bladder incontinence, or severe profound weakness. No neurologic deficits. Signs and symptoms are consistent with notable muscle spasm, as well as pneumonia. We will continue the Levaquin on an outpatient basis. She has Dilaudid and muscle relaxants at home. Had a long discussion with family regarding treatment, importance of close follow-up, and behaviors and activities for which to avoid. She has notable medications at home, and I do not think that additional medications are indicated at this time. We will recommend to avoid gram of Tylenol on top of her Dilaudid and muscle relaxants every [address] a referral for the [facility] spine [place] pain clinic. At this time the patient shows no evidence of respiratory compromise, sepsis, severe pneumonia requiring admission. Feel that she can be safely treated outpatient at this time. I have extensively reviewed the treatment plan and discharge instructions with the patient and their family. I have addressed all patient concerns at this time. The patient and family was made aware of what symptoms to monitor for that would warrant a return to the emergency department. Discussed the plan with the patient and family, they demonstrate verbal understanding and agreement with our assessment and plan at this time. FINDINGS: Lungs: Airspace opacities in both lower lobes. Moderate in severity. Pleural space: No pneumothorax. Trace right pleural fluid. Heart: No cardiomegaly. No pericardial effusion. Aorta: No aortic aneurysm. Lymph nodes: No enlarged lymph nodes. Gallbladder and bile ducts: Cholecystectomy. Bones/joints: No acute fracture. Soft tissues: No suspicious lesions. IMPRESSION: 1. Airspace opacities in both lower lobes. Could reflect pneumonia or subsegmental atelectasis depending on the clinical situation. 2. Trace right pleural fluid. Thank you for allowing us to participate in the care of your patient. HPI <Cruz Diego MD - Last Filed: 02/22/19 23:14> General Mode of arrival: ambulatory . Date/Time Provider Initiated Documentation: 02/22/19 19:51 . Limitations to Documentation: no limitations . Information obtained by: patient . History of Present Illness 48 year old F presents to the emergency department with the chief complaint of Recurrent right back, flank pain., described as severe and similar to prior episodes, and is localized to the back, abdomen and right. Patient reports radiation to back. Patient started experiencing this hour(s) and it has been constant. No relieving factors improve symptom(s), No exacerbating factors reported . Patient notes no other symptoms.. Patient did receive the following treatments prior to arrival, none Related Data Home Medications Medication Instructions Recorded Confirmed ferrous sulfate 325 mg PO DAILY #100 tab 12/22/14 02/22/19 albuterol sulfate [ProAir HFA] 2 puff INHALATION Q6H PRN #1 08/29/16 02/22/19 inhaler albuterol sulfate 1 vial INHALATION Q 4-6 HR PRN 08/29/17 02/22/19 #100 vial montelukast 10 mg tablet 10 mg PO QPM #90 tab 05/14/18 02/22/19 Advair Diskus 500 mcg-50 mcg/dose 1 inh INHALATION BID #60 each NS 11/24/18 02/22/19 powder for inhalation dicyclomine 20 mg PO TID #10 tab 02/16/19 02/22/19 pantoprazole [Protonix] 40 mg PO DAILY #14 tab 02/16/19 02/22/19 sucralfate [Carafate] 1 gm PO BID #10 tab 02/16/19 02/22/19 hydromorphone [Dilaudid] 2 mg PO Q6H PRN #15 tab 02/19/19 02/22/19 methocarbamol 500 mg tablet 500 mg PO TID PRN #90 tab 02/22/19 02/22/19 levofloxacin [Levaquin] 750 mg PO DAILY 10 Days #10 tab 02/23/19 Previous Rx's Medication Instructions Recorded albuterol sulfate 1 vial INHALATION Q 4-6 HR PRN 08/29/17 #100 vial montelukast 10 mg tablet 10 mg PO QPM #90 tab 05/14/18 Advair Diskus 500 mcg-50 mcg/dose 1 inh INHALATION BID #60 each NS 11/24/18 powder for inhalation dicyclomine 20 mg PO TID #10 tab 02/16/19 pantoprazole [Protonix] 40 mg PO DAILY #14 tab 02/16/19 sucralfate [Carafate] 1 gm PO BID #10 tab 02/16/19 hydromorphone [Dilaudid] 2 mg PO Q6H PRN #15 tab 02/19/19 methocarbamol 500 mg tablet 500 mg PO TID PRN #90 tab 02/22/19 levofloxacin [Levaquin] 750 mg PO DAILY 10 Days #10 tab 02/23/19 Allergies Allergy/AdvReac Type Severity Reaction Status Date / Time aspirin Allergy Severe ANAPHYLAXIS Verified 02/22/19 19:58 codeine Allergy Severe ANALHYLAXIS Verified 02/22/19 19:58 mometasone furoate Allergy Severe ANAPHYLAXIS, Verified 02/22/19 19:58 [From Asmanex Waqaser] ADVAIR OK TO TAKE NSAIDS (Non-Steroidal Allergy Severe ANAPHYLAXIS Verified 02/22/19 19:58 Anti-Inflamma Penicillins Allergy Unknown Verified 02/22/19 19:58 prednisone AdvReac Severe projectile Unverified 02/22/19 19:58 vomiting General Stated Complaint: Abd Prob SARITA: 2 Review of Systems <Cruz Diego MD - Last Filed: 02/22/19 23:14> Review of Systems Narrative: No fall or trauma. No change to gait. No change to urination. No numbness, tingling, weakness. 6 systems reviewed and otherwise negative. PFSH <Cruz Diego MD - Last Filed: 02/22/19 23:14> Medical History Abnormal uterine bleeding (Chronic) Heavy menstrual bleeding, uterine fibroids on pelvic US Diverticulosis of colon (Chronic) Gastroesophageal reflux disease (Chronic) Hyperlipidemia (Chronic) Iron deficiency anemia due to chronic blood loss (Chronic) Moderate persistent asthma without complication (Chronic) Obesity (Chronic) LINETTE (obstructive sleep apnea) (Chronic) Prediabetes (Chronic) Surgical History S/P cholecystectomy (Acute 03/1994) Family History Mother Hyperlipidemia Type 2 diabetes mellitus Essential hypertension Father , at 44 of [place], cardiomyopathy Heart disease Hyperlipidemia Myocardial infarction Type 2 diabetes mellitus Essential hypertension Sister Essential hypertension Hyperlipidemia Endometrial cancer Brother , at 19 of MVA No problems noted. Son Asthma Daughter No problems noted. Maternal Grandfather , at 86 of lung cancer Heart disease Lung cancer Maternal Grandmother , at 84 of breast CA Essential hypertension Breast cancer Paternal Grandfather , at 67 COPD (chronic obstructive pulmonary disease) Paternal Grandmother , at 86 of endometrial cancer Endometrial cancer Social History Smoking/Tobacco Use Status: Never Second Hand Exposure: Yes Alcohol Intake: never Drug use: Never Substance use type: does not use Caregiver/Support person: No Household members: spouse and children Housing: house Communication Needs: None Do you need help understanding health information?: Never Pets and animals: Yes Pets and animals: cat(s) and dog(s) Sexually active: Yes Do you think of yourself as: straight/heterosexual Current gender identity: female What is your relationship status?: How often do you talk on the phone with friends or family?: three or more times per week How often do you get together with friends or relatives?: twice per week How often do you attend baptist or christianity services?: 4 or more times per year Do you belong to any clubs or organized social groups?: no Panel score (0-1 are the most socially isolated patients): 3 What type of physical activity do you participate in: walking Duration: decline to answer Frequency: 1-2 times per week Екатерина/Bahai: Hoahaoism Special екатерина needs: No Seatbelt use: always Helmet use: Yes Drive intox or ride w/intox driver education road instructor: No Do you feel safe at home: Yes Do you feel safe in your relationship?: Yes Female Reproductive History Menstrual control method: other (Vasectomy) History History 2 Para 2 Hx # Term Pregnancies Multiple births Hx # Pregnancies Ectopic pregnancies AB induced Hx Number of Living Children 2 AB spontaneous Exam <Cruz Diego MD - Last Filed: 02/22/19 23:14> Narrative Exam Narrative: GEN: awake, alert, oriented 3. In distress, well-groomed and interactive. HEAD: Normocephalic, atraumatic ENT: Mucous membranes moist, oropharynx unremarkable, External ear exam unremarkable EYES: PERRL, EOMI NECK: Full ROM, no SIGRID, no menigismus CHEST/RESP: Nontender, clear to auscultation bilateral, no wheeze/rhonchi/rales CARDIOVASCULAR: RRR, no murmur, rub elder. 2+ Rad pulse bilateral ABDOMEN: Soft, nontender, no mass. +Bowel sounds Back: Right paraspinous tenderness. Did not appreciate spasm due to body habitus. EXT: Full ROM, no edema, no rash. Sensation intact throughout including saddle distribution. Neuro: Grossly normal neurologic exam, conversant, interactive. Psych: Speech fluent, thoughts congruent, affect normal Course <Cruz Diego MD - Last Filed: 02/22/19 23:14> Vital Signs Vital signs: Vital Signs Temperature 36.8 C 02/22/19 20:03 Pulse 100 H 02/22/19 20:03 Respiratory Rate 26 H 02/22/19 20:03 Blood Pressure 114/93 H 02/22/19 20:03 Pulse Oximetry 99 02/22/19 20:03 Temperature 36.8 C 02/22/19 20:03 Temperature Source Skin 02/22/19 20:03 Pulse 100 H 02/22/19 20:03 Respiratory Rate 26 H 02/22/19 20:03 Respiratory Effort 02/22/19 20:05 Blood Pressure 114/93 H 02/22/19 20:03 Pulse Oximetry 99 02/22/19 20:03 Oxygen Delivery Method Room Air 02/22/19 20:03 Oxygen Flow Rate 0 02/22/19 20:03 Pain Level 10 02/22/19 20:03 Sign Out <Cruz Diego MD - Last Filed: 02/22/19 23:14> Sign Out Data: Sign Out Comment: Followup CT scan result and re-evaluate Last updated by Cruz Diego MD at 02/22/19 22:52
[2019-02-22] MEDS: HYDROmorphone 2 MG/ML VIAL (20:16)
[2019-02-22 20:33] LABS: Abs Immature Grans 0.07 k/cumm (0.0-0.09); HCT 36.5 % (36.0-46.0); HGB 11.7 g/dL (12.0-15.5); Mean Corp. HGB Concentration 32.1 g/dL (32.0-36.0); Mean Corpuscular Hemoglobin 25.1 pg (27.0-33.0); Mean Corpuscular Volume 78.2 fL (80-95); Mean Platelet Volume 9.7 fL (8.0-11.0); Platelet Count 458 x1000/uL (130-400); RBC 4.67 m/cumm (4.00-5.20); RBC Distribution Width 16.1 % (11.7-14.6); White Blood Cell Count 16.25 k/cumm (4.4-10.8)
[2019-02-22] MEDS: Normal Saline 500 ML IV (20:37)
[2019-02-22 20:38] LABS: Lipase 72 U/L (73-393); Magnesium 1.7 mg/dL (1.8-2.4)
[2019-02-22 20:58] LABS: Bilirubin Negative (Negative); Blood Trace-intact (Negative); Clarity Clear (Clear); Glucose Negative (Negative); Ketones Negative (Negative); Leukocyte Esterase Negative (Negative); Nitrite Negative (Negative); Specific Gravity 1.015 (1.005-1.025); Urobilinogen 0.2 EU/dL (Up TO 0.2)
[2019-02-22 21:04] LABS: Absolute Eosinophil Count 0.33 k/cumm (0.0-0.7); Absolute Lymphocyte Count 1.63 k/cumm (1.2-3.4); Absolute Monocyte Count 1.14 k/cumm (0.11-0.7); Absolute Neutrophil Count 13.16 k/cumm (1.2-6.7); Atypical Lymphocytes % 0; Diff Comment Manual Differential; RBC Morphology Normal
[2019-02-22 21:09] LABS: Bacteria Rare HPF (Negative); C & S Indicated? No; Casts Negative LPF (Negative); Crystals Negative HPF (Negative); Epithelial Cells Rare HPF (Negative); Mucus Negative (Negative); Other Cells Negative (Negative); RBC 0-2 (0-2); WBC Negative HPF (0-5)
[2019-02-22] MEDS: LORazepam 2 MG/ML VIAL 0.5 MG IVP (21:15)
[2019-02-22] MEDS: Normal Saline 1,000 ML 125 ML IV (21:17)
[2019-02-22] MEDS: Ketorolac 30 MG/ML VIAL (21:23)
[2019-02-22] MEDS: HYDROmorphone 2 MG/ML VIAL 0.5 MG IVP (21:30)
--- NOTE | 2019-02-22 21:30 | DI.CT_ITS ---
EXAM: CT ABDOMEN PELVIS WO CLINICAL HISTORY: R flank pain (? spasm), hematuria TECHNIQUE: Noncontrast COMPARISON: CT ABDOMEN PELVIS WO/W from 02/16/2019 FINDINGS: The exam is limited by patient motion. Increased densities are seen at both lung bases, right great er than left suspicious for pneumonia. The patient is status post cholecystectomy. The liver, splee n, pancreas, adrenals and kidneys are unremarkable. The appendix appears normal. Increased stool is seen in the right side of the colon. The left side of the colon is mainly decompressed aside from t he sigmoid which contains moderate stool. The uterus, ovaries and bladder are unremarkable. The luis dder is nearly empty. The aorta is normal in diameter. No hip or spinal fractures are seen. IMPRESSION: Bibasilar infiltrates versus atelectasis.
[2019-02-22 21:32] VITALS: BP 99/46; PULSE 94; RESP 26; O2SAT 98
[2019-02-22 22:03] VITALS: BP 132/63; PULSE 77; RESP 17; O2SAT 99
[2019-02-22 22:34] LABS: ALT 13 U/L (14-59); AST 12 U/L (15-37); Albumin 3.8 g/dL (3.4-5.0); Alkaline Phosphatase 73 U/L (46-116); Anion Gap 12.6 mmol/L (3-11); BUN 11 mg/dL (7-18); Bilirubin, Total 0.7 mg/dL (0.2-1.0); CO2 25.4 mmol/L (21.0-32.0); Calcium 9.6 mg/dL (8.5-10.1); Chloride 98 mmol/L (98-107); Glucose 110 mg/dL (70-100); Potassium 3.9 mmol/L (3.5-5.1); Sodium 136 mmol/L (136-145); Total Protein 8.8 g/dL (6.4-8.2)
--- NOTE | 2019-02-22 22:58 | DI.VRAD_ITS ---
PROCEDURE INFORMATION: Exam: CT Abdomen And Pelvis Without Contrast Exam date and time: 02/22/2019 9:32 PM Clinical history: 48 years old, female; Abdominal pain; Right; Patient HX: R flank pain(? Spasm), hematuria TECHNIQUE: Imaging protocol: Computed tomography of the abdomen and pelvis without contrast. COMPARISON: CT ABDOMEN PELVIS WO/W 02/16/2019 6:57 PM FINDINGS: Lungs: Opacities in the lower lobes may represent atelectasis or pneumonia. Pleural space: Small bilateral pleural effusions.. Liver: Hepatomegaly 20 cm Gallbladder and bile ducts: Cholecystectomy Pancreas: Normal. No ductal dilation. Spleen: Normal. No splenomegaly. Adrenals: Normal. No mass. Kidneys and ureters: No renal calculus. No ureteral calculus. Stomach and bowel: Constipation in the right colon. Appendix: Normal appendix. Intraperitoneal space: Unremarkable. No free air. No significant fluid collection. Vasculature: Unremarkable. No abdominal aortic aneurysm. Lymph nodes: Unremarkable. No enlarged lymph nodes. Bladder: Unremarkable as visualized. Reproductive: Unremarkable as visualized. Bones/joints: Unremarkable. No acute fracture. Soft tissues: Small ventral hernia that contains fat IMPRESSION: 1. Opacities in the lower lobes may represent atelectasis or pneumonia. 2. Small bilateral pleural effusions.. 3. No renal calculus. No ureteral calculus. 4. Normal appendix. 5. Constipation in the right colon. Dictated and Authenticated by: Ervin Donis MD. Ordering:TAMMY Arroyo MD
[2019-02-22] MEDS: levoFLOXacin 750 MG/150 ML BAG 100 MG IVPB (23:09)
[2019-02-22] MEDS: HYDROmorphone 2 MG/ML VIAL 1 MG IVP (23:10)
[2019-02-22 23:11] VITALS: BP 138/53; PULSE 77; RESP 18; O2SAT 99
--- NOTE | 2019-02-22 23:55 | DI.CT_ITS ---
EXAM: CT CHEST W CLINICAL HISTORY: R pain, new basilar infiltrates TECHNIQUE: Post 70 cc Omnipaque 350 COMPARISON: CHEST FOR PULMONARY EMBOLUS from 12/31/2014 CT ABDOMEN PELVIS WO/W from 02/16/2019 FINDINGS: The exam is limited by patient motion. The heart size is normal. Increased densities at both lung bases, right greater than left. The findings could represent atelectasis versus bibasilar infiltrate s. There is a trace amount of right pleural fluid. There is no pericardial fluid. The aorta is nor mal in diameter. Visualized portions of the upper abdomen are unremarkable. Patient is status post cholecystectomy. IMPRESSION: Bibasilar basilar infiltrates versus atelectasis, right greater.
[2019-02-23] VITALS: BP 138/76; PULSE 81; RESP 18; O2SAT 99
--- NOTE | 2019-02-23 00:09 | DI.VRAD_ITS ---
PROCEDURE INFORMATION: Exam: CT Chest With Contrast Exam date and time: 02/22/2019 23:13 Clinical history: 48 years old, female; Right-sided chest pain; Patient HX: R pain, new basilar infiltrates. TECHNIQUE: Imaging protocol: Computed tomography of the chest with intravenous contrast. Radiation optimization: All CT scans at this facility use at least one of these dose optimization techniques: automated exposure control; mA and/or kV adjustment per patient size (includes targeted exams where dose is matched to clinical indication); or iterative reconstruction. COMPARISON: CT CHEST FOR PULMONARY EMBOLUS 12/31/2014 16:19 FINDINGS: Lungs: Airspace opacities in both lower lobes. Moderate in severity. Pleural space: No pneumothorax. Trace right pleural fluid. Heart: No cardiomegaly. No pericardial effusion. Aorta: No aortic aneurysm. Lymph nodes: No enlarged lymph nodes. Gallbladder and bile ducts: Cholecystectomy. Bones/joints: No acute fracture. Soft tissues: No suspicious lesions. IMPRESSION: 1. Airspace opacities in both lower lobes. Could reflect pneumonia or subsegmental atelectasis depending on the clinical situation. 2. Trace right pleural fluid. Dictated and Authenticated by: Leanne Valentin MD. Ordering:TAMMY Arroyo MD
[2019-02-23] MEDS: Ondansetron 4 MG/2 ML VIAL (00:26)
[2019-02-23 00:47] VITALS: BP 123/64; PULSE 79; RESP 17; O2SAT 99
[2019-02-23] MEDS: Omnipaque 350 MG/ML 100 ML BTL 70 ML IJ (01:09)
[2019-02-23 01:50] VITALS: BP 124/68; PULSE 78; RESP 17; TEMP 36.8; O2SAT 99
== END 2019-02-23 01:50 | disposition home or self-care (01) ==
PROVIDERS: Emergency Medicine; Emergency Provider Student in an Organized Health Care Education/Training Program; PCP Nurse Practitioner Family
DX: J18.9 Pneumonia, unspecified organism (principal); M62.830 Muscle spasm of back
CPT/HCPCS: 36415; 80053; 83690; 96361; 96365; 96366; 96375; 96376; 99285; 71260; 74176; 81003; 81015; 83735; 85025; 99284; J1885; J1956; J2060; J2405; J3490

== ENCOUNTER 2019-04-20 14:51 | Outpatient (REF) | payer OTHER, SELFPAY ==
--- NOTE | 2019-04-20 14:25 | ENDOMET_PTH ---
PATIENT: Barb Gant LOC: [facility] U#:[id number] AGE/SX: 48/F ROOM: RE04/20/[address]: Jomar Hernández MD : 1970 BED: DIS: 04/20/2019 SPEC #: [id number] RECD: 04/20/19 17:19 STATUS: THERESA REQ #: [id number] JARVIS: 04/20/19 14:[address]: Jomar Hernández DEPT: Surgical Specimen RECD BY: Lea Goel ENTERED: 04/20/19 17:20 SP TYPE: Endomet OTHR DR: MECHE De Luna Tissues: 1 - ENDOMETRIUM BX/CURRETTE Procedures: GROSS AND MICRO LEVEL 4 Comments: [id number]
== END 2019-04-20 15:11 ==
LOC: LBN 14:51
PROVIDERS: PCP Nurse Practitioner Family; Visit Provider Obstetrics & Gynecology
DX: N71.1 Chronic inflammatory disease of uterus (principal); N93.8 Other specified abnormal uterine and vaginal bleeding
CPT/HCPCS: 88305

== ENCOUNTER 2019-06-03 07:07 | Observation (INO) | payer OTHER, SELFPAY ==
[2019-06-03] VITALS (43 sets, daily range): BP systolic 109–158; BP diastolic 63–97; PULSE 62–89; RESP 6–29; TEMP 36.8–37.1; O2SAT 96–100
--- NOTE | 2019-06-03 08:06 | W.ED.GENAD ---
Discharge Plan Disposition Patient Disposition: [facility] INPATIENT Condition: Serious Discharge Details Chief Complaint: Nk/Back Pain Clinical Impression: Acute right-sided back pain, Spasm of muscle of lower back, Chest pain Primary Care Provider: Julia Camacho ED Provider: Amish Armijo Home Meds and New Rx's Prescriptions: No Action methocarbamol 500 mg tablet 500 mg PO TID PRN (Reason: muscle spasms) Qty: 90 RF: 4 albuterol sulfate 2.5 mg /3 mL (0.083 %) solution for nebulization 2.5 mg Inhalation Q4H PRN (Reason: shortness of breath or wheezing) Qty: 100 RF: 4 lidocaine 5 % adhesive patch,medicated 1 patch TP DAILY PRNRF: 0 nystatin 100,000 unit/gram cream 1 applic TP BID PRNRF: 0 ferrous sulfate 325 MG tablet 325 mg PO DAILY Qty: 100 RF: 3 albuterol sulfate [ProAir HFA] 8.5 GM HFA aerosol inhaler 2 puff Inhalation Q6H PRN Qty: 1 RF: 11 fluticasone propion-salmeterol [Advair Diskus] 500-50 mcg/dose blister with device 1 inh Inhalation BID Qty: 60 RF: 11 montelukast [Singulair] 10 mg tablet 10 mg PO QPM Qty: 90 RF: 4 omeprazole 40 mg capsule,delayed release(DR/EC) 40 mg PO QAM Qty: 90 RF: 4 Medical Decision Making 8:00 -- Patient evaluated immediately on my arrival to ED. Mrs. Gant is a 48-year-old female with prior history of right back spasm, here today with severe right lumbar back spasm and pain that is positional and worse with movement. Patient is neurologically intact lower extremities with no saddle anesthesia and full strength. Abdominal exam is benign. Pain does seem related to menstrual cycles. I am concerned about the potential for endometriosis and specifically located along psoas muscle versus musculoskeletal strain or disc herniation. I reviewed past medical record, patient had substantial work-up performed in February including advanced imaging. MRI of lumbar spine 02/20 reviewed: IMPRESSION: Mild degenerative disc changes and facet degenerative changes. No evidence of a disc herniation or other acute abnormality. CT of the abdomen pelvis 02/20 reviewed: IMPRESSION: Bibasilar infiltrates versus atelectasis. Patient has multiple allergies and prescribed methocarbamol not relieving symptoms. Patient to be given Dilaudid 1 mg IM and Flexeril 10 mg orally. 9:00 --patient reassessed and pain much improved although still present with any movement. 10:10 -- Patient is now complaining of chest discomfort. Screening ECG was reviewed and interpreted by me: Sinus rhythm 71 bpm with first-degree AV block CA interval of 232, normal axis, no ischemic findings, nondiagnostic. Plan to check troponin. -- Trop and second delta trop at 3 hours neg. patient reassessed and on attempted ambulation, patient with recurrent severe right low back pain and spasm. Patient unable to ambulate. Plan to give Valium IV and admit for continued pain control/ambulatory dysfunction. I called and spoke with Dr. uCevas who will accept the patient for admission. HPI General Mode of arrival: ambulatory. Date/Time Provider Initiated Documentation: 06/03/19 07:33. Limitations to Documentation: no limitations. Information obtained by: patient and family. HPI Narrative: 48-year-old female with prior history of right low back pain and spasm, abnormal uterine bleeding, presents with chief complaint of low back spasm. Patient states that current flare of pain started around the 18th. Pain was initially described as a pinching sensation in her hip. Pain is persisted and much worse over the past 2 days. Pain is positional and specifically worse when she goes from seated to standing position. Patient also states that she typically has flareups around menstrual cycles. She just completed a menstrual cycle with heavy flow. Pain is currently described as a severe spasm. She has no associated numbness or weakness. No associated bowel or bladder discomfort. No associate abdominal discomfort. Patient was seen here in the emergency department multiple times in February for similar pain and had a substantial work-up done at that time. She subsequently has followed up with primary care and gynecology. Patient does state that she tripped and fell over her dog in April but did not have immediate pain after that fall. Related Data Home Medications Medication Instructions Recorded Confirmed ferrous sulfate 325 mg PO DAILY #100 tab 12/22/14 06/03/19 albuterol sulfate [ProAir HFA] 2 puff INHALATION Q6H PRN #1 08/29/16 06/03/19 inhaler Advair Diskus 500 mcg-50 mcg/dose 1 inh INHALATION BID #60 each NS 11/24/18 06/03/19 powder for inhalation methocarbamol 500 mg tablet 500 mg PO TID PRN #90 tab 02/22/19 06/03/19 albuterol sulfate 2.5 mg INHALATION Q4H PRN #100 vial 03/19/19 06/03/19 lidocaine 5 % topical patch 1 patch TP DAILY PRN each 04/20/19 06/03/19 nystatin 100,000 unit/gram topical 1 applic TP BID PRN gm 04/20/19 06/03/19 cream montelukast 10 mg tablet 10 mg PO QPM #90 tab 05/27/19 06/03/19 omeprazole 40 mg capsule,delayed 40 mg PO QAM #90 cap 06/02/19 06/03/19 release Previous Rx's Medication Instructions Recorded Advair Diskus 500 mcg-50 mcg/dose 1 inh INHALATION BID #60 each NS 11/24/18 powder for inhalation methocarbamol 500 mg tablet 500 mg PO TID PRN #90 tab 02/22/19 albuterol sulfate 2.5 mg INHALATION Q4H PRN #100 vial 03/19/19 montelukast 10 mg tablet 10 mg PO QPM #90 tab 05/27/19 omeprazole 40 mg capsule,delayed 40 mg PO QAM #90 cap 06/02/19 release Allergies Allergy/AdvReac Type Severity Reaction Status Date / Time aspirin Allergy Severe ANAPHYLAXIS Verified 06/03/19 07:18 codeine Allergy Severe ANALHYLAXIS Verified 06/03/19 07:18 mometasone furoate Allergy Severe ANAPHYLAXIS, Verified 06/03/19 07:18 [facility] ADVAIR OK TO TAKE NSAIDS (Non-Steroidal Allergy Severe ANAPHYLAXIS Verified 06/03/19 07:18 Anti-Inflamma Penicillins Allergy Unknown Verified 06/03/19 07:18 prednisone AdvReac Severe projectile Verified 06/03/19 07:18 vomiting General Stated Complaint: Nk/Back Pain SARITA: 3 Review of Systems All systems reviewed & are unremarkable except as noted in HPI and below Constitutional Constitutional: Denies fever(s) Gastrointestinal Gastrointestinal: Reports system reviewed and no additional complaints, except as docu, Denies abdominal pain and Reports loose stools (Yesterday) Musculoskeletal Musculoskeletal: Reports as per HPI Neurologic Neurologic: Reports as per HPI [facility] Medical History Abnormal uterine bleeding (Chronic) Heavy menstrual bleeding Diverticulosis of colon (Chronic) Gastroesophageal reflux disease (Chronic) Hyperlipidemia (Chronic) Iron deficiency anemia due to chronic blood loss (Chronic) Moderate persistent asthma without complication (Chronic) Obesity (Chronic) LINETTE (obstructive sleep apnea) (Chronic) Prediabetes (Chronic) Surgical History S/P cholecystectomy (Acute 03/1994) Family History Mother Hyperlipidemia Type 2 diabetes mellitus Essential hypertension Father , at 44 of [place], cardiomyopathy Heart disease Hyperlipidemia Myocardial infarction Type 2 diabetes mellitus Essential hypertension Sister Essential hypertension Hyperlipidemia Endometrial cancer Brother , at 19 of MVA No problems noted. Son Asthma Daughter No problems noted. Maternal Grandfather , at 86 of lung cancer Heart disease Lung cancer Maternal Grandmother , at 84 of breast CA Essential hypertension Breast cancer Paternal Grandfather , at 67 COPD (chronic obstructive pulmonary disease) Paternal Grandmother , at 86 of endometrial cancer Endometrial cancer Social History Smoking/Tobacco Use Status: Never Second Hand Exposure: Yes Alcohol Intake: never Drug use: Never Substance use type: does not use Caregiver/Support person: No Household members: spouse and children Housing: house Communication Needs: None Do you need help understanding health information?: Never Pets and animals: Yes Pets and animals: cat(s) and dog(s) Sexually active: Yes Do you think of yourself as: straight/heterosexual Current gender identity: female What is your relationship status?: How often do you talk on the phone with friends or family?: three or more times per week How often do you get together with friends or relatives?: twice per week How often do you attend muslim or orthodoxy services?: 4 or more times per year Do you belong to any clubs or organized social groups?: no Panel score (0-1 are the most socially isolated patients): 3 What type of physical activity do you participate in: walking Duration: decline to answer Frequency: 1-2 times per week Екатерина/Zoroastrian: Yazdanism Special екатерина needs: No Seatbelt use: always Helmet use: Yes Drive intox or ride w/intox cdl bulk driver: No Do you feel safe at home: Yes Do you feel safe in your relationship?: Yes Female Reproductive History Menstrual control method: other (Vasectomy) History History 2 Para 2 Hx # Term Pregnancies Multiple births Hx # Pregnancies Ectopic pregnancies AB induced Hx Number of Living Children 2 AB spontaneous Exam Const General: cooperative, in distress moderate (Maintain) and anxious Orientation: alert and awake HENMT Mouth: moist mucous membranes Eyes Conjunctivae: normal conjunctivae Sclera: normal sclerae Neck Neck: trachea midline Resp Auscultation: clear to auscultation bilaterally, no rales, no rhonchi and no wheezes Cardio Jugular venous pressure: no JVD Rate: regular rate and not tachycardic Rhythm: regular rhythm GI Palpation: soft, not firm, no guarding, no masses, not rigid and nontender Back/Spine/Pelvis Back: No erythema, No warmth and No ecchymosis Thoracic/Lumbar Spine: thoracic and lumbar spine normal to inspection Skin General skin exam: no rashes or lesions noted Neuro General: alert, awake, oriented x3 and tone normal Cognition: normal cognition Speech: speech normal Motor: strength 5/5 throughout (Bilateral lower extremities) Sensory Exam: no sensory deficits noted and other (No saddle anesthesia) Extrem General: no edema Psych Appearance: grossly normal Mental Status: mental status grossly normal Course Vital Signs Vital signs: Vital Signs Temperature 37.1 C 06/03/19 07:13 Pulse 77 06/03/19 07:13 Respiratory Rate 16 06/03/19 07:13 Blood Pressure 152/97 H 06/03/19 07:13 Pulse Oximetry 98 06/03/19 07:13 Temperature 37.1 C 06/03/19 07:13 Temperature Source Skin 06/03/19 07:13 Pulse 77 06/03/19 07:13 Respiratory Rate 16 06/03/19 07:13 Respiratory Effort 06/03/19 07:13 Blood Pressure 152/97 H 06/03/19 07:13 Blood Pressure Position Standing 06/03/19 07:13 Pulse Oximetry 98 06/03/19 07:13 Oxygen Delivery Method Room Air 06/03/19 07:13 Oxygen Flow Rate 0 06/03/19 07:13 Pain Level 10 06/03/19 07:13 Lab/Test Results Lab/Test Results: POC- Test(urine) Negative
[2019-06-03 08:09] LABS: Bilirubin Negative (Negative); Blood Negative (Negative); Clarity Clear (Clear); Glucose Negative (Negative); Ketones Negative (Negative); Leukocyte Esterase Negative (Negative); Nitrite Negative (Negative); Specific Gravity 1.015 (1.005-1.025); Urobilinogen 0.2 EU/dL (Up TO 0.2)
[2019-06-03] MEDS: Cyclobenzaprine 10 MG TAB PO (08:10)
[2019-06-03] MEDS: Lidocaine 5% Patch 1 PATCH TP (08:10)
[2019-06-03] MEDS: HYDROmorphone 2 MG/ML VIAL 1 MG IM (08:10)
[2019-06-03 08:36] LABS: Abs Immature Grans 0.02 k/cumm (0.0-0.09); Absolute Basophil Count 0.04 k/cumm (0.0-0.2); Absolute Eosinophil Count 0.16 k/cumm (0.0-0.7); Absolute Lymphocyte Count 1.63 k/cumm (1.2-3.4); Absolute Monocyte Count 0.81 k/cumm (0.11-0.7); Absolute Neutrophil Count 6.12 k/cumm (1.2-6.7); Basophils % 0.5; Eosinophils % 1.8; HCT 32.6 % (36.0-46.0); HGB 10.1 g/dL (12.0-15.5); Immature Grans % 0.2 %; Lymphocytes % 18.6; Mean Corpuscular Hemoglobin 23.6 pg (27.0-33.0); Mean Corpuscular Volume 76.2 fL (80-95); Mean Platelet Volume 9.6 fL (8.0-11.0); Monocytes % 9.2; Neutrophils % 69.7; Platelet Count 488 x1000/uL (130-400); RBC 4.28 m/cumm (4.00-5.20); White Blood Cell Count 8.78 k/cumm (4.4-10.8)
[2019-06-03 08:48] LABS: ALT 17 U/L (14-59); AST 12 U/L (15-37); Albumin 3.6 g/dL (3.4-5.0); Alkaline Phosphatase 68 U/L (46-116); Anion Gap 12.5 mmol/L (3-11); BUN 10 mg/dL (7-18); Bilirubin, Total 0.4 mg/dL (0.2-1.0); CO2 25.5 mmol/L (21.0-32.0); CREATININE 0.81 mg/dL (0.55-1.02); Calcium 8.9 mg/dL (8.5-10.1); Chloride 102 mmol/L (98-107); Glucose 99 mg/dL (74-106); Magnesium 1.7 mg/dL (1.8-2.4); Potassium 3.7 mmol/L (3.5-5.1); Sodium 140 mmol/L (136-145)
[2019-06-03] MEDS: Normal Saline Flush 10 ML SYR IVP (09:13)
[2019-06-03] MEDS: Magnesium Oxide 400 MG TAB PO ×2 (09:26→20:00)
[2019-06-03 10:39] LABS: Troponin I < 0.05 ng/Ml (<0.06)
[2019-06-03 13:36] LABS: Troponin I < 0.05 ng/Ml (<0.06)
[2019-06-03] MEDS: diazePAM 10 MG/2 ML SYR 2 MG IVP (13:58)
--- NOTE | 2019-06-03 14:46 | W.PM.HP.N ---
Date of service: 06/03/19 Time of Service: 14:46 Assessment and Plan Assessment and plan (1) Acute right-sided back pain: Status: Acute Assessment and plan: failure to re-ambulate. she reports as an exacerbation of chronic pain/spasm. There are no signs of neurologic deficit or findings concerning for cord compression syndrome. will refer to observation, pt consult. schedule tylenol, muscle relaxers, lidocaine patch. avoid narcotics. heat or ice for comfort. she reports she is allergic to NSAIDS and steroids. MRI of lumbar spine 02/20 reviewed: IMPRESSION: Mild degenerative disc changes and facet degenerative changes. No evidence of a disc herniation or other acute abnormality. (2) Chest pain: Status: Acute Assessment and plan: repeat troponins and ekg unremarkable. will get one more trop in am and defer further work up to pcp outpatient or sooner for new or worsening symptoms (3) LINETTE (obstructive sleep apnea): Status: Chronic (4) Moderate persistent asthma without complication: Status: Chronic Assessment and plan: stable, continue home medications (5) Gastroesophageal reflux disease: Status: Chronic Assessment and plan: stable, continue omeprazole (6) Iron deficiency anemia due to chronic blood loss: Status: Chronic Assessment and plan: stable, continue iron supplementation (7) DVT prophylaxis: Status: Acute Assessment and plan: enoxaparin, teds and scd (8) Hypomagnesemia: Status: Acute Assessment and plan: 1.7, will replete and recheck in am (9) Discharge planning issues: Status: Acute Assessment and plan: home with no services once medically stable. History of Present Illness History of Present Illness Chief Complaint: back pain Narrative: This is a 48 year old female patient with super morbid obesity who presents to the ED with recurrent back pain/spasm. she has been taking robaxin and had cut her dose down in half but symptoms have worsened again. she denies any recent trauma but does go on to state she has hurt it multiple times and fell in the fall. she states she was admitted in february for the same presentation and did get benefit from PT. She has no signs of neurologic deficit, denies numbness or tingling, urinary retention or bowel incontinence and has no saddle anesthesia. work up in the ED was unremarkable. MRI from february visit was reviewed and showed no evidence of disc herniation or other acute abnormality. she received IV dilaudid and po flexeril with some improvement, she also experienced some chest pain while in the ED which troponin and repeat troponin both negative and EKG with no acute ischemic changes noted. She was unable to safely reambulate so was accepted under observation on hospitalist services. Review of Systems Constitutional Constitutional: Denies chills, Denies fever(s), Denies frequent falls and Denies weakness Eyes Eyes: Denies loss of vision ENT Ears, Nose, Mouth, and Throat: Denies sore throat Cardiovascular Cardiovascular: Reports chest pain, Denies diaphoresis, Denies rapid heart rate, Denies edema, Denies radiating jaw, neck or arm pain and Denies palpitations Respiratory Respiratory: Denies chest congestion and Denies cough Gastrointestinal Gastrointestinal: Denies abdominal pain, Denies nausea and Denies vomiting Genitourinary Genitourinary: Denies urinary frequency, Denies flank pain, Denies urinary incontinence, Denies urinary hesitancy and Denies urinary urgency Musculoskeletal Musculoskeletal: Reports back pain and Denies numbness Integumentary/Breasts Skin/Breast: Denies erythema and Denies rash Neurologic Neurologic: Denies frequent falls, Denies loss of vision, Denies numbness, Denies sensory deficit and Denies weakness Endocrine Endocrine: Denies palpitations [facility] Medical History Abnormal uterine bleeding (Chronic) Heavy menstrual bleeding Diverticulosis of colon (Chronic) Gastroesophageal reflux disease (Chronic) Hyperlipidemia (Chronic) Iron deficiency anemia due to chronic blood loss (Chronic) Moderate persistent asthma without complication (Chronic) Obesity (Chronic) LINETTE (obstructive sleep apnea) (Chronic) Prediabetes (Chronic) Surgical History S/P cholecystectomy (Acute 03/1994) Family History Mother Hyperlipidemia Type 2 diabetes mellitus Essential hypertension Father , at 44 of [place], cardiomyopathy Heart disease Hyperlipidemia Myocardial infarction Type 2 diabetes mellitus Essential hypertension Sister Essential hypertension Hyperlipidemia Endometrial cancer Brother , at 19 of MVA No problems noted. Son Asthma Daughter No problems noted. Maternal Grandfather , at 86 of lung cancer Heart disease Lung cancer Maternal Grandmother , at 84 of breast CA Essential hypertension Breast cancer Paternal Grandfather , at 67 COPD (chronic obstructive pulmonary disease) Paternal Grandmother , at 86 of endometrial cancer Endometrial cancer Social History Smoking/Tobacco Use Status: Never Second Hand Exposure: Yes Alcohol Intake: never Drug use: Never Substance use type: does not use Caregiver/Support person: No Household members: spouse and children Housing: house Communication Needs: None Do you need help understanding health information?: Never Pets and animals: Yes Pets and animals: cat(s) and dog(s) Sexually active: Yes Do you think of yourself as: straight/heterosexual Current gender identity: female What is your relationship status?: How often do you talk on the phone with friends or family?: three or more times per week How often do you get together with friends or relatives?: twice per week How often do you attend voodoo or jainism services?: 4 or more times per year Do you belong to any clubs or organized social groups?: no Panel score (0-1 are the most socially isolated patients): 3 What type of physical activity do you participate in: walking Duration: decline to answer Frequency: 1-2 times per week Екатерина/Episcopalian: Yarsanism Special екатерина needs: No Seatbelt use: always Helmet use: Yes Drive intox or ride w/intox emergency vehicle driver: No Do you feel safe at home: Yes Do you feel safe in your relationship?: Yes Female Reproductive History Menstrual control method: other (Vasectomy) History History 2 Para 2 Hx # Term Pregnancies Multiple births Hx # Pregnancies Ectopic pregnancies AB induced Hx Number of Living Children 2 AB spontaneous Meds Home Medications and Allergies Home Medications Medication Instructions Recorded Confirmed Type ferrous sulfate 325 mg PO DAILY #100 tab 12/22/14 06/03/19 History albuterol sulfate [ProAir HFA] 2 puff INHALATION Q6H PRN #1 08/29/16 06/03/19 History inhaler Advair Diskus 500 mcg-50 mcg/dose 1 inh INHALATION BID #60 each NS 11/24/18 06/03/19 Rx powder for inhalation methocarbamol 500 mg tablet 500 mg PO TID PRN #90 tab 02/22/19 06/03/19 Rx albuterol sulfate 2.5 mg INHALATION Q4H PRN #100 vial 03/19/19 06/03/19 Rx lidocaine 5 % topical patch 1 patch TP DAILY PRN each 04/20/19 06/03/19 History nystatin 100,000 unit/gram topical 1 applic TP BID PRN gm 04/20/19 06/03/19 History cream montelukast 10 mg tablet 10 mg PO QPM #90 tab 05/27/19 06/03/19 Rx omeprazole 40 mg capsule,delayed 40 mg PO QAM #90 cap 06/02/19 06/03/19 Rx release Allergies Allergy/AdvReac Type Severity Reaction Status Date / Time aspirin Allergy Severe ANAPHYLAXIS Verified 06/03/19 07:18 codeine Allergy Severe ANALHYLAXIS Verified 06/03/19 07:18 mometasone furoate Allergy Severe ANAPHYLAXIS, Verified 06/03/19 07:18 [From Asmanex [facility]] ADVAIR OK TO TAKE NSAIDS (Non-Steroidal Allergy Severe ANAPHYLAXIS Verified 06/03/19 07:18 Anti-Inflamma Penicillins Allergy Unknown Verified 06/03/19 07:18 prednisone AdvReac Severe projectile Verified 06/03/19 07:18 vomiting Exam Const General: cooperative, comfortable and no acute distress Nutritional Appearance: obese (older appearing than stated age) morbidly obese Orientation: alert, awake and oriented x3 [facility] Head: normal to inspection, normocephalic and atraumatic Mouth: oral mucosae normal Neck Neck: normal visual inspection and full ROM Resp Effort & Inspection: normal respiratory effort Auscultation: clear to auscultation bilaterally Cardio Rate: regular rate Rhythm: regular rhythm GI Inspection: large pannus and obesity Palpation: soft Auscultation: normal bowel sounds Skin General skin exam: no rashes or lesions noted Neuro General: alert, awake and oriented x3 Motor: muscle tone normal throughout and strength 5/5 throughout Sensory Exam: no sensory deficits noted Extrem General: normal to inspection Results Labs Result diagrams: 06/03/19 08:25 06/03/19 08:25 Labs: Laboratory Results - last 24 hr 06/03/19 06/03/19 06/03/19 07:50 08:25 08:25 WBC 8.78 RBC 4.28 Hgb 10.1 L Hct 32.6 L MCV 76.2 L MCH 23.6 L MCHC 31.0 L RDW 16.0 H Plt Count 488 H MPV 9.6 Immature Gran % 0.2 Neutrophils % 69.7 Lymphocytes % 18.6 Monocytes % 9.2 Eosinophils % 1.8 Basophils % 0.5 Absolute Neutrophils 6.12 Absolute Lymphocytes 1.63 Absolute Monocytes 0.81 H Absolute Eosinophils 0.16 Absolute Basophils 0.04 Sodium 140 Potassium 3.7 Chloride 102 Carbon Dioxide 25.5 Anion Gap 12.5 H BUN 10 Creatinine 0.81 Estimated GFR/1.73 m2 >= 60.00 Glucose 99 Calcium 8.9 Magnesium 1.7 L Total Bilirubin 0.4 AST 12 L ALT 17 Alkaline Phosphatase 68 Troponin I Total Protein 8.0 Albumin 3.6 Urine Color Yellow Urine Clarity Clear Urine pH 7.0 Ur Specific Scotts 1.015 Urine Protein Negative Urine Ketones Negative Urine Blood Negative Urine Nitrite Negative Urine Bilirubin Negative Urine Urobilinogen 0.2 Ur Leukocyte Esterase Negative Urine Glucose Negative 06/03/19 06/03/19 06/03/19 10:15 13:03 13:14 WBC RBC Hgb Hct MCV MCH MCHC RDW Plt Count MPV Immature Gran % Neutrophils % Lymphocytes % Monocytes % Eosinophils % Basophils % Absolute Neutrophils Absolute Lymphocytes Absolute Monocytes Absolute Eosinophils Absolute Basophils Sodium Potassium Chloride Carbon Dioxide Anion Gap BUN Creatinine Estimated GFR/1.73 m2 Glucose Calcium Magnesium Total Bilirubin AST ALT Alkaline Phosphatase Troponin I < 0.05 Cancelled < 0.05 Total Protein Albumin Urine Color Urine Clarity Urine pH Ur Specific Scotts Urine Protein Urine Ketones Urine Blood Urine Nitrite Urine Bilirubin Urine Urobilinogen Ur Leukocyte Esterase Urine Glucose Last Vital Signs Temp 37.1 C 06/03/19 07:13 Pulse 67 06/03/19 13:01 Resp 24 06/03/19 13:40 BP 127/75 06/03/19 13:01 Pulse Ox 98 06/03/19 13:40
[2019-06-03] MEDS: Patch Removal 1 EACH TP (15:00)
[2019-06-03] MEDS: Methocarbamol 500 MG TAB PO (15:19)
[2019-06-03] MEDS: Acetaminophen 325 MG TAB 650 MG PO ×2 (16:23→22:00)
[2019-06-03] MEDS: Enoxaparin 40 MG/0.4 ML SYR SC (16:28)
[2019-06-03] MEDS: Montelukast 10 MG TAB PO (20:00)
[2019-06-03] MEDS: Omeprazole 20 MG CAPCR PO (20:00)
[2019-06-04 04:05] VITALS: BP 112/74; PULSE 70; RESP 19; TEMP 36.6; O2SAT 98
[2019-06-04] MEDS: Acetaminophen 325 MG TAB 650 MG PO ×2 (04:22→10:35)
[2019-06-04] MEDS: Methocarbamol 500 MG TAB PO (04:22)
[2019-06-04 07:40] VITALS: BP 127/80; PULSE 62; RESP 16; TEMP 36.5; O2SAT 100
[2019-06-04 07:41] LABS: Abs Immature Grans 0.02 k/cumm (0.0-0.09); Absolute Basophil Count 0.03 k/cumm (0.0-0.2); Absolute Lymphocyte Count 1.47 k/cumm (1.2-3.4); Absolute Monocyte Count 0.58 k/cumm (0.11-0.7); Absolute Neutrophil Count 4.37 k/cumm (1.2-6.7); Basophils % 0.4; HCT 32.1 % (36.0-46.0); HGB 9.7 g/dL (12.0-15.5); Immature Grans % 0.3 %; Mean Corp. HGB Concentration 30.2 g/dL (32.0-36.0); Mean Corpuscular Hemoglobin 23.4 pg (27.0-33.0); Mean Corpuscular Volume 77.3 fL (80-95); Mean Platelet Volume 10.2 fL (8.0-11.0); Monocytes % 8.7; Neutrophils % 65.6; Platelet Count 455 x1000/uL (130-400); RBC 4.15 m/cumm (4.00-5.20); RBC Distribution Width 16.2 % (11.7-14.6); White Blood Cell Count 6.67 k/cumm (4.4-10.8)
[2019-06-04 08:02] LABS: Anion Gap 7.8 mmol/L (3-11); BUN 13 mg/dL (7-18); CO2 27.2 mmol/L (21.0-32.0); CREATININE 0.64 mg/dL (0.55-1.02); Calcium 8.8 mg/dL (8.5-10.1); Chloride 103 mmol/L (98-107); Glucose 90 mg/dL (74-106); Magnesium 1.8 mg/dL (1.8-2.4); Potassium 4.2 mmol/L (3.5-5.1); Sodium 138 mmol/L (136-145)
[2019-06-04 08:06] LABS: Troponin I < 0.05 ng/Ml (<0.06)
[2019-06-04] MEDS: Magnesium Oxide 400 MG TAB PO (08:40)
[2019-06-04] MEDS: Ferrous Sulfate 325 MG TAB PO (08:40)
[2019-06-04 09:25] LABS: Diff Comment RBC Morph Reviewed
[2019-06-04 09:26] LABS: Anisocytosis 1+; Microcytosis 1+
[2019-06-04 09:27] LABS: Polychromasia Present
[2019-06-04 09:29] LABS: Poikilocytes 1+
--- NOTE | 2019-06-04 11:35 | DSE_ITS ---
Date of service: 06/04/19 Time of Service: 11:35 DS: Diagnosis Discharge Diagnosis (1) Acute right-sided back pain: Start date: 06/04/19 Start time: 11:36 Status: Acute Asessment and Plan: Appears to be in correlation with menstraul cycle. Increase methocarbinol to 1.5 grams QID (2) Chest pain: Start date: 06/04/19 Start time: 12:14 Status: Acute Asessment and Plan: Resolved. Troponins negative. (3) LINETTE (obstructive sleep apnea): Start date: 06/04/19 Start time: 12:14 Status: Chronic Asessment and Plan: Continue CPAP (4) Moderate persistent asthma without complication: Status: Chronic (5) Gastroesophageal reflux disease: Start date: 06/04/19 Start time: 12:14 Status: Chronic Asessment and Plan: Continue Reflux medication (6) Iron deficiency anemia due to chronic blood loss: Status: Chronic (7) DVT prophylaxis: Status: Acute (8) Hypomagnesemia: Start date: 06/04/19 Start time: 12:15 Status: Acute Asessment and Plan: Resolved (9) Discharge planning issues: Status: Acute Discharge Plan Disposition Patient Disposition: HOME Condition: Good Discharge Details Chief Complaint: Nk/Back Pain Clinical Impression: Acute right-sided back pain, Spasm of muscle of lower back, Chest pain Reason For Visit: BACK PAIN Admit Date/Time: 06/03/19 14:10 Admit Provider: Guero Cuevas Attending Provider: Guero Cuevas Primary Care Provider: Julia Camacho ED Provider: Amish [facility] Course Hospital Course: Mrs. Gant is a 48 y.o female with PMH LINETTE, HLD, MARINA, and GERD admitted from [facility] for intractable recurrent spasm/back pain. No trauma, signs of neurologic deficit. Labs in the ED unremarkable. Her symptoms seem to correlate with her menstrual cycle. She has a follow up appt with gynecology. She was given valium and diluadid in the ED. She did have a bout of chest pain last night after being admitted, EKG was normal, troponins negative. Today Cp is resolved. She is having little to no back pain and feels well enough to go home. She was ambulatory in her room. She denies CP, SOB, N/V/D. Home Meds and New Rx's Prescriptions: New methocarbamol 750 mg tablet 1,500 mg PO QID Qty: 120 RF: 0 Continued albuterol sulfate 2.5 mg /3 mL (0.083 %) solution for nebulization 2.5 mg Inhalation Q4H PRN (Reason: shortness of breath or wheezing) Qty: 100 RF: 4 lidocaine 5 % adhesive patch,medicated 1 patch TP DAILY PRNRF: 0 nystatin 100,000 unit/gram cream 1 applic TP BID PRNRF: 0 ferrous sulfate 325 MG tablet 325 mg PO DAILY Qty: 100 RF: 3 albuterol sulfate [ProAir HFA] 8.5 GM HFA aerosol inhaler 2 puff Inhalation Q6H PRN Qty: 1 RF: 11 fluticasone propion-salmeterol [Advair Diskus] 500-50 mcg/dose blister with device 1 inh Inhalation BID Qty: 60 RF: 11 montelukast [Singulair] 10 mg tablet 10 mg PO QPM Qty: 90 RF: 4 omeprazole 40 mg capsule,delayed release(DR/EC) 40 mg PO QAM Qty: 90 RF: 4 Discontinued methocarbamol 500 mg tablet 500 mg PO TID PRN (Reason: muscle spasms) Qty: 90 RF: 4 Discharge Instructions Instructions: Back Pain (GEN) Additional Instructions: You can increase your methocarbinol to 1500 grams a day x 4 times a day. Take this dose for 3 days then decrease to 750 up to three times a day as needed. Follow up with Gynecology as scheduled. Stand Alone Forms: Nursing Discharge Form Referrals: Julia Camacho NP [Primary Care Provider] - 06/09/19 1:40 pm Activity:: Activity as Tolerated Equipment/Supplies:: No Equipment Needed Diet:: As Tolerated Discharge Orders Discharge Orders: Discharge Order (Routine); Ordered 06/04/19 Ordered By: Janet Rutherford DS: Summary Status at Discharge Functional status at discharge: independent ambulation Overall status at discharge: patient is back to baseline Mental Status: mental status grossly normal Speech and Movement: speech and movement normal Mood: congruent mood Affect: normal affect Exam Const General: cooperative, comfortable and no acute distress Nutritional Appearance: obese (older appearing than stated age) morbidly obese Orientation: alert, awake and oriented x3 HENMT Head: normal to inspection, normocephalic and atraumatic Mouth: oral mucosae normal Neck Neck: normal visual inspection and full ROM Resp Effort & Inspection: normal respiratory effort Auscultation: clear to auscultation bilaterally Cardio Rate: regular rate Rhythm: regular rhythm GI Inspection: large pannus and obesity Palpation: soft Auscultation: normal bowel sounds Skin General skin exam: no rashes or lesions noted Neuro General: alert, awake and oriented x3 Motor: muscle tone normal throughout and strength 5/5 throughout Sensory Exam: no sensory deficits noted Extrem General: normal to inspection Psych Mental Status: mental status grossly normal Speech and Movement: speech and movement normal Mood: congruent mood Affect: normal affect DS: Data Vitals/I&O Vitals and I&O: Vital Signs Temperature 36.5 C 06/04/19 07:40 Temperature Source Tympanic 06/04/19 07:40 Pulse 62 06/04/19 07:40 Pulse Rhythm Regular 06/04/19 08:45 Pulse Strength Normal 06/03/19 14:52 Pulse 67 06/03/19 13:40 Respiratory Rate 16 06/04/19 07:40 Respiratory Effort Non-Labored 06/04/19 08:45 Respiratory Depth Normal 06/04/19 08:45 Respiratory Pattern Normal 06/04/19 08:45 Blood Pressure 127/80 06/04/19 07:40 Blood Pressure Mean 106 06/03/19 14:52 Blood Pressure Position Supine 06/03/19 14:52 Pulse Oximetry 100 06/04/19 07:40 Oxygen Delivery Method Room Air 06/04/19 07:40 Oxygen Flow Rate 0 06/04/19 07:40 Pain Level 6 06/04/19 10:35 Comment 06/04/19 04:05 Intake & Output 06/03/19 06/03/19 06/04/19 11:59 23:59 11:59 Intake Total 900 / 900 840 / 840 Output Total 450 / 450 200 / 200 Balance 450 / 450 640 / 640 Weight 132.449 kg 132.449 kg Intake: IV Oral 890 / 890 840 / 840 Output: Urine 450 / 450 200 / 200 Other: Urine Color Yellow Pale Yellow Urine Appearance Clear Clear Urine Odor Normal Voiding Methods Toilet Toilet Data Completed and Pending Labs on day of discharge: Labs from last 24 hours 06/04/19 06/04/19 06/03/19 06:25 06:25 13:14 WBC 6.67 RBC 4.15 Hgb 9.7 L Hct 32.1 L MCV 77.3 L MCH 23.4 L MCHC 30.2 L RDW 16.2 H Plt Count 455 H MPV 10.2 Immature Gran % 0.3 Neutrophils % 65.6 Lymphocytes % 22.0 Monocytes % 8.7 Eosinophils % 3.0 Basophils % 0.4 Absolute Neutrophils 4.37 Absolute Lymphocytes 1.47 Absolute Monocytes 0.58 Absolute Eosinophils 0.20 Absolute Basophils 0.03 Differential Comment Rbc morph reviewed RBC Morphology See below Polychromasia Present Poikilocytosis 1+ Anisocytosis 1+ Microcytosis 1+ Sodium 138 Potassium 4.2 Chloride 103 Carbon Dioxide 27.2 Anion Gap 7.8 BUN 13 Creatinine 0.64 Estimated GFR/1.73 m2 >= 60.00 Glucose 90 Calcium 8.8 Magnesium 1.8 Troponin I < 0.05 < 0.05 06/03/19 13:03 WBC RBC Hgb Hct MCV MCH MCHC RDW Plt Count MPV Immature Gran % Neutrophils % Lymphocytes % Monocytes % Eosinophils % Basophils % Absolute Neutrophils Absolute Lymphocytes Absolute Monocytes Absolute Eosinophils Absolute Basophils Differential Comment RBC Morphology Polychromasia Poikilocytosis Anisocytosis Microcytosis Sodium Potassium Chloride Carbon Dioxide Anion Gap BUN Creatinine Estimated GFR/1.73 m2 Glucose Calcium Magnesium Troponin I Cancelled [facility] Medical History Abnormal uterine bleeding (Chronic) Heavy menstrual bleeding Diverticulosis of colon (Chronic) Gastroesophageal reflux disease (Chronic) Hyperlipidemia (Chronic) Iron deficiency anemia due to chronic blood loss (Chronic) Moderate persistent asthma without complication (Chronic) Obesity (Chronic) LINETTE (obstructive sleep apnea) (Chronic) Prediabetes (Chronic) Surgical History S/P cholecystectomy (Acute 03/1994) Family History Mother Hyperlipidemia Type 2 diabetes mellitus Essential hypertension Father , at 44 of [place], cardiomyopathy Heart disease Hyperlipidemia Myocardial infarction Type 2 diabetes mellitus Essential hypertension Sister Essential hypertension Hyperlipidemia Endometrial cancer Brother , at 19 of MVA No problems noted. Son Asthma Daughter No problems noted. Maternal Grandfather , at 86 of lung cancer Heart disease Lung cancer Maternal Grandmother , at 84 of breast CA Essential hypertension Breast cancer Paternal Grandfather , at 67 COPD (chronic obstructive pulmonary disease) Paternal Grandmother , at 86 of endometrial cancer Endometrial cancer Social History Smoking/Tobacco Use Status: Never Second Hand Exposure: Yes Alcohol Intake: never Drug use: Never Substance use type: does not use Caregiver/Support person: No Household members: spouse and children Housing: house Communication Needs: None Do you need help understanding health information?: Never Pets and animals: Yes Pets and animals: cat(s) and dog(s) Sexually active: Yes Do you think of yourself as: straight/heterosexual Current gender identity: female What is your relationship status?: How often do you talk on the phone with friends or family?: three or more times per week How often do you get together with friends or relatives?: twice per week How often do you attend anabaptism or yarsanism services?: 4 or more times per year Do you belong to any clubs or organized social groups?: no Panel score (0-1 are the most socially isolated patients): 3 What type of physical activity do you participate in: walking Duration: decline to answer Frequency: 1-2 times per week [employer]катерина[employer] Special екатерина needs: No Seatbelt use: always Helmet use: Yes 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
--- NOTE | 2019-06-04 11:42 | IN_ITS ---
Date of service: 06/04/19 Time of Service: 11:29 PT Notes Visit Reasons: BACK PAIN Inpatient Physical Therapy Intial Evaluation Date: 06/04/2019 Referring Doctor: Eri Campoverde NP PT Orders: PT CONSULT: Eval/Treat Precautions: Fall. Standard. Activity as tolerated. Patient Profile/Admitting Diagnosis: Patient is a 48-year-old female who presented to the ED on 06/03/2019 with chief complaints of right lumbar back spasms that get worse with movement. Patient is diagnosed with acute right- sided back pain, chest pain, and hypomagnesemia. MRI of lumbar spine 02/20 impression: Mild degenerative disc changes and facet degenerative changes. No evidence of a disc herniation or other acute abnormality. PMHX: Medical History Abnormal uterine bleeding (Chronic) Heavy menstrual bleeding Diverticulosis of colon (Chronic) Gastroesophageal reflux disease (Chronic) Hyperlipidemia (Chronic) Iron deficiency anemia due to chronic blood loss (Chronic) Moderate persistent asthma without complication (Chronic) Obesity (Chronic) LINETTE (obstructive sleep apnea) (Chronic) Prediabetes (Chronic) Surgical History S/P cholecystectomy (Acute 03/1994) Social History/Home Situation: Patient lives in a home with three steps to enter with her . She has two grown daughters as well. She was previously independent with all activities of daily living. She likes to bake a lot. Equipment Owned/DME: None. Subjective: Patient reports good relief from back pain that she came to the ED for yesterday. She states that back pain usually is exacerbated with her menstrual cycles which she had twice last month and twice this month. 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 She reports having fallen after [employer] last year tripping on her back dog standing on their black carpet. Objective: General Observation: Patient seen standing in room by bedside. Able to tolerate this position for about 10 minutes. Mental Status: Alert and oriented x 4 Pain: Patient reports that when she does not move whether in sitting, standing or lying down, she does not have pain. pain is instigated with movement. ROM: Right Upper Extremity: Shoulder Flexion WFL. Shoulder abduction WFL. Elbow flexion WFL. Wrist flexion WFL. Functional opening and closing of hand WFL. Left Upper Extremity: Shoulder Flexion WFL. Shoulder abduction WFL. Elbow flexion WFL. Wrist flexion WFL. Functional opening and closing of hand WFL. Right Lower Extremity: Hip flexion WFL. Hip abduction WFL. Knee flexion WFL. Ankle dorsiflexion WFL. Ankle plantarflexion WFL. Left Lower Extremity: Hip flexion WFL. Hip abduction WFL. Knee flexion WFL. Ankle dorsiflexion WFL. Ankle plantarflexion WFL. Strength: Right Upper Extremity: Shoulder flexors 5/5. Shoulder abductors 5/5. Elbow flexors 5/5. Elbow extensors 5/5. Field Control Inspector strong. Left Upper Extremity: Shoulder flexors 5/5. Shoulder abductors 5/5. Elbow flexors 5/5. Elbow extensors 5/5. Field Control Inspector strong. Right Lower Extremity: Hip flexors 4/5. Hip abductors 4/5. Knee flexors 5/5. Knee extensors 5/5. Ankle dorsiflexors 5/5. Ankle plantarflexors 5/5. Left Lower Extremity: Hip flexors 4/5. Hip abductors 4/5. Knee flexors 5/5. Knee extensors 5/5. Ankle dorsiflexors 5/5. Ankle plantarflexors 5/5. Trunk mobility: Less than 50% range available throughout. Bed Mobility/Transfers: Rolling Independent Supine to sit Independent Sit to supine Independent Sit to stand Independent Stand to sit Independent Bed to chair independent Chair to bed independent Gait: Patient ambulated 120? using a FWW, and exhibited a reciprocal gait pattern, independently without an assistive device. No increase in pain reported. Balance: Static Sitting: Normal Dynamic Sitting: Normal Static Standing: Normal Dynamic Standing: Good Special Tests: Mobility Limitations Standardized Measure [facility] AM-PAC 6 clicks Basic Mobility Inpatient Short Form: Raw Score: 23 CMS Score: 11% deficit Informed Consent/Education: Patient instructed in purpose of PT consult and plan of care. Assessment: Patient is a 48-year old female admitted to the medical/surgical unit with complaints of back pain. She lives in a house with her , that has three steps to enter. Together, they have two grown daughters. 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 She is minimally tender to palpation along the posterior aspect of the right iliac crest. Her pain continues to be provoked during position changes. Her body habitus and the irregularity in her menstrual cycles are aggravating factors for her chronic low back pain. Patient presents with clinical signs and symptoms consistent with current/admitting diagnoses that have resulted to mobility limitations, gait instability, generalized weakness, and impairment of motor control as demonstrated by the following impairment level findings: 1. Decreased strength to B LE major muscle groups 2. Impaired sitting/standing tolerance 3. Impaired activity tolerance 4. Limitation of joint range of motion in trunk Impairments are contributing to the following functional limitations: 1. Increase completion time for mobility ADL performance 2. Increased fall risk 4. Inability to negotiate steps alone safely Patient is assessed as a 29193 moderate complexity based on the following: History: 48-year-old female with intractable low back pain Examination: Demonstrable impairment in strength, balance, and range of motion with underlying impairments and functional limitations as documented above Presentation: Evolving Decision Makin Moderate complexity Goals: N/A. PT evalaution only. Plan of Care/Treatment Plan: N/A. PT evalaution only. DISCHARGE RECOMMENDATIONS: Patient is to be discharged to home under the care of her ,when medically cleared to do so. Continue OP PT for low back pain management. TREATMENT CODE/TIME: 48032 x 33 minutes beginning at 11:29 AM. Thank you very much for this referral. Cinthia Foss PT, DPT, CLT [facility] [place], [place]
[2019-06-04] MEDS: Methocarbamol 750 MG TAB 1500 MG PO (13:28)
--- NOTE | 2019-06-04 18:14 | PDOC.CMIN ---
- If Service Date Differs Date of service: 06/04/19 Time of Service: 18:14 Care Management Initial Assess REASON FOR HOSPITALIZATION:: Back Pain PAST MEDICAL HISTORY/PAST SURGICAL HISTORY:: Medical History . Abnormal uterine bleeding (Chronic). Heavy menstrual bleeding. Diverticulosis of colon (Chronic). Gastroesophageal reflux disease (Chronic). Hyperlipidemia (Chronic). Iron deficiency anemia due to chronic blood loss (Chronic). Moderate persistent asthma without complication (Chronic). Obesity (Chronic). LINETTE (obstructive sleep apnea) (Chronic). Prediabetes (Chronic). Surgical History . S/P cholecystectomy (Acute 03/1994) PREVIOUS FUNCTIONAL STATUS/SOCIAL/FAMILY SUPPORTS:: Barb lives in [place], [place] with her , Lefty and daughter Jesus. They also have an adult son, who is supportive. 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 She is independent at baseline. CURRENT FUNCTIONAL STATUS:: Barb was sitting up in her chair when CM met with her. She reported that she was feeling better, that her pain was controlled, and that she would be going home today, per MD. She reported that she would be having surgery in a few weeks which will hopefully help with her chronic back pain. She was very happy with the care she recieved at [facility]. ADVANCE DIRECTIVES:: None on file. Has patient been provided with information about the portal?: No Did the patient sign up for the portal?: No CODE STATUS:: Full Code INSURANCE COVERAGE / FINANCIAL ISSUES:: [employer]/ [employer]ist 57% CURRENT HOME/COMMUNITY SERVICES/EQUIPMENT:: None at this time. PRIMARY CARE PHYSICIAN:: Julia Camacho POTENTIAL DISCHARGE NEEDS:: Evaluations for further needs, follow up appointments PATIENT/FAMILY EDUCATION NEEDS:: Review community based supports, discharge plan, discussion of self care needs including Ask Me Three ANTICIPATED BARRIERS TO DISCHARGE:: None identified at this time. TRANSPORTATION:: Anticipate her , Lefty will drive her home via private vehicle. PLAN:: Anticipate Barb will return home with no additional services when medically cleared. She will follow up with her PCP and outpatient PT. Her will drive her home when ready via private vehicle. CM will continue to follow.
--- NOTE | 2019-06-04 18:28 | PDOC.CMDIS ---
- If Service Date Differs Date of service: 06/04/19 Time of Service: 18:28 LACE Index Scoring Tool - Questions: Length of Stay (in days): 2 Acuity (Admit via E.D.?): Yes E.D. Visits: 5 - Answers: Total Score: 9 Risk of Readmission: Low Risk Care Management Discharge Reason for Hospitalization: Back Pain Discharge Plan: Barb will return home with no additional services at this time. Her will drive her home via private vehicle when ready. She will have follow up appointments with PCP and out patient PT. She is agreeable to the plan. Patient/Family Education Needs: Review discharge instructions regarding medications and activity levels, discussion of self care needs including ask me three
== END 2019-06-04 13:31 | disposition home or self-care (01) ==
LOC: ER 14:19 → MS 15:29
PROVIDERS: Nurse Practitioner Acute Care; Admitting Provider Family Medicine; Emergency Provider Student in an Organized Health Care Education/Training Program; PCP Nurse Practitioner Family; Visit Provider Family Medicine
DX: M54.9 Dorsalgia, unspecified (principal); M62.830 Muscle spasm of back; R07.9 Chest pain, unspecified; G47.33 Obstructive sleep apnea (adult) (pediatric); J45.40 Moderate persistent asthma, uncomplicated; K21.9 Gastro-esophageal reflux disease without esophagitis; D50.0 Iron deficiency anemia secondary to blood loss (chronic); E83.42 Hypomagnesemia
CPT/HCPCS: 36415; 80048; 80053; 81025; 93005; 96372; 96374; 97162; 99220; 99239; 99285; J1650; 81003; 83735; 84484; 85025; 93010; 99217; 99284; G0378; J3360; J3490

== ENCOUNTER 2019-06-08 10:02 | Outpatient (CLI) | payer OTHER, SELFPAY ==
[2019-06-08 10:58] LABS: HCT 34.1 % (36.0-46.0); HGB 10.4 g/dL (12.0-15.5); Mean Corp. HGB Concentration 30.5 g/dL (32.0-36.0); Mean Corpuscular Hemoglobin 23.4 pg (27.0-33.0); Mean Corpuscular Volume 76.8 fL (80-95); Mean Platelet Volume 9.5 fL (8.0-11.0); Platelet Count 486 x1000/uL (130-400); RBC 4.44 m/cumm (4.00-5.20); RBC Distribution Width 16.4 % (11.7-14.6)
== END 2019-06-08 10:22 ==
PROVIDERS: PCP Nurse Practitioner Family; Visit Provider Obstetrics & Gynecology
DX: N92.6 Irregular menstruation, unspecified (principal); N94.6 Dysmenorrhea, unspecified; Z01.818 Encounter for other preprocedural examination; Z01.812 Encounter for preprocedural laboratory examination
CPT/HCPCS: 36415; 85027; 86850; 86900; 86901

== ENCOUNTER 2019-06-09 12:13 | Observation (INO) | payer OTHER, SELFPAY ==
[2019-06-07 10:25] VITALS: BP 137/78; PULSE 80; RESP 16; TEMP 37.1; O2SAT 99
[2019-06-09] VITALS (17 sets, daily range): BP systolic 113–143; BP diastolic 51–82; PULSE 61–83; RESP 16–28; TEMP 36.2–37; O2SAT 94–100
[2019-06-09] MEDS: Lactated Ringers 1,000 ML 125 ML IV ×4 (07:08→22:14)
[2019-06-09] MEDS: ceFAZolin 2 GM/50 ML BAG IVPB (07:34)
[2019-06-09] MEDS: Bupivacaine 0.25% Pres-Free 30 ML VIAL (08:27)
[2019-06-09] MEDS: Vasopressin 20 UNITS/ML VIAL (09:02)
[2019-06-09] MEDS: Normal Saline 20 ML VIAL (09:02)
--- NOTE | 2019-06-09 09:43 | UTER_PTH ---
PATIENT: Barb Gant LOC: U#:[id number] AGE/SX: 48/F ROOM: 230 RE06/09/[address]: Jomar Hernández MD : 1970 BED: A DIS: 06/10/2019 SPEC #: [id number] RECD: 06/09/19 11:54 STATUS: THERESA RESteven #: [id number] JARVIS: 06/09/19 09:[address]: Jomar Hernández DEPT: Surgical Specimen RECD BY: Lea Goel ENTERED: 06/09/19 11:58 SP TYPE: UTER OTHR DR: MECHE De Luna Tissues: 1 - UTERUS W OR W/O OVARIES(NOT TUMOR/PROLAPSE) Procedures: GROSS AND MICRO LEVEL 5 Comments: [id number]
--- NOTE | 2019-06-09 14:48 | W.NUTCONSULT ---
Date of service: 06/09/19 Time of Service: 14:48 Nutritional Consult ASSESSMENT: 48 year old female admitted with abnormal uterine bleeding. Hgb: 10.4. Morbid obesity. Following regular meal plan. Will provide outpatient contact information for weight management. MONITORING AND EVALUATION: po intake, weight, labs Time Spent in Nutritional Counseling and Treatment: 0 time spent face to face
--- NOTE | 2019-06-09 14:51 | ROE_ITS ---
Date of service: 06/09/19 Time of Service: 14:51 Operative Note Operative Note DATE OF PROCEDURE: 06/09/19 PRE-OP DIAGNOSIS: 1. Abnormal uterine bleeding 2. Rectocele POST-OP DIAGNOSIS: same PROCEDURE: 1. LAVH with bilateral salpingectomy 2. Posterior colporrhaphy 3. Postoperative cystoscopy SURGEON: Jomar Hernández ASSISTING SURGEON: Xiomara Harris MINING CONSULTANT: Ping Rai ANESTHESIA: GETA and spinal ESTIMATED BLOOD LOSS: 100 PATHOLOGY: other (Uterus with fallopian tubes) COMPLICATIONS: None Patient was transported to: PACU Patient's condition: stable Findings: 1. Normal appearance to bilateral fallopian tubes and ovaries. 2. Normal-appearing uterus. 3. Normal postoperative cystoscopy with strong reflux of indigocarmine from both UOs Procedure Description: The patient received intrathecal anesthesia prior to the onset of the procedure. After adequate general anesthesia was achieved the patient was placed in lithotomy position. The patient was prepped and draped in usual sterile manner. A Jason catheter was placed in the bladder draining clear urine. A Thumb Arcade uterine manipulator was placed to the cervix. The patient was repositioned. The surgeon was regloved. Attention was then turned to the patient's abdomen. The skin and subcutaneous tissues at the umbilicus were infiltrated with 0.25% Marcaine solution. A small infraumbilical skin incision was then made with a #15 scalpel. Sharp dissection was carried down to the underlying layer fascia. The fascia was grasped and elevated with 2 Priyank clamps and incised sharply with a scalpel. The peritoneum was entered with a hemostat. S retractors were placed. The fascia was tagged superiorly and inferiorly with 2 sutures of 0 Vicryl. The 10 mm balloon trocar was advanced through the incision and secured in place. A pneumoperitoneum to approximately 15 mmHg was established with carbon dioxide. 2 5 mm ports were placed under direct visualization in the right lower and left lower quadrants. The uterus tubes and ovaries were grossly normal. A corpus luteum was noted on the right ovary. With the use of the LigaSure device dissection was carried across the right mesosalpinx. The fallopian tube was transected and removed from the abdomen. Dissection was carried across the suspensory ligament with the LigaSure device. The round ligament was also coagulated and transected. Dissection was carried down the broad ligament to the level of the vesicouterine flap. Dissection was carried across the flap to the midline. A similar dissection was carried out on the opposite side. The bladder flap was then developed caudally. Dissection of the broad ligament was taken down to the level of the uterine vessels. Attention was then turned to the vaginal portion of this procedure. The patient was repositioned. A weighted speculum was placed in the vagina with good visualization of the cervix. The cervix was grasped with a single-tooth tenaculum. The paracervical tissues were infiltrated with vasopressin solution. A circumferential incision was made at the cervicovaginal junction with a #10 scalpel. The anterior and posterior planes were developed with blunt and sharp dissection. The cul-de-sac was entered sharply with Hammond scissors. A longbilled weighted speculum was inserted. The vesicocervical space was dissected with blunt and sharp dissection and the anterior cul-de-sac was also entered. The bladder was reflected anteriorly with a right angle retractor. The uterosacral ligaments were crossclamped bilaterally with Zeppelin clamps, transected with Hammond scissors and suture ligated with 0 Vicryl in a Melissa stitch. Suture tags were held. The uterine vessels were then crossclamped bilaterally with Zeppelin clamps, also transected with Hammond scissors and suture ligated with 0 Vicryl in a Melissa stitch. 2 additional pedicles on either side completed the repair and dissection along the broad ligament. Each pedicle was suture-ligated with a transfixed suture of 0 Vicryl. The uterus was removed vaginally. There was a bleeding vessel from the level of the suspensory ligament that was noted. This was clamped with a right angle clamp and doubly ligated with 0 Vicryl. All other pedicles were examined and were noted to be hemostatic. The uterosacral ligaments were incorporated into the vaginal angles with use of the previously placed sutures of 0 Vicryl and with the use of a free needle. The median defect in the vaginal cuff was closed with interrupted vertical mattress sutures of 0 Vicryl. Again excellent hemostasis was noted. The cystocele defect was noted to be minimal and the decision was made not to proceed with anterior colporrhaphy. Attention was turned to the rectocele defect. The vaginal mucosa was infiltrated with vasopressin solution. A linear she is incision was made from the introitus overlying the rectocele. Dissection was carried out laterally in either direction thereby isolating the defect. Initially a pursestring suture was placed to reduce the defect and then the fascia was reapproximated to the midline with interrupted vertical mattress sutures of 0 Vicryl. The vaginal mucosa was trimmed and reapproximated with interrupted sutures of 0 Vicryl. Excellent hemostasis was noted. Jason catheter was removed. 5 mL's of indigocarmine was administered intravenously. A 5 mm 30 degree cystoscope with normal saline distention media was advanced into the bladder. The bladder wall was noted to be free of trauma. There was strong efflux of indigocarmine from both UOs. This was a normal postoperative cystoscopy. The surgeons were regowned and gloved and attention was turned to the patient's abdomen. The pneumoperitoneum was reestablished. Laparoscope was reinserted. A thorough irrigation was performed. There was a small area of bleeding on the right-hand side near the vaginal cuff. This was cauterized with the LigaSure device. Surgi-Stefan was applied to this area and excellent hemostasis was noted. The 5 mm trochars were removed under direct visualization. The abdomen was desufflated and the 10 mm umbilical port was removed. The fascia at the umbilicus was closed with 2 previously placed sutures of 0 Vicryl. Skin incisions were closed with 4 Monocryl and Dermabond was applied. The procedure was concluded at this point. Sponge, lap and needle counts were correct at the conclusion of the procedure. The patient tolerated the procedure well and was transferred to PACU stable condition.
[2019-06-10] MEDS: Docusate Sodium 100 MG CAP PO ×2 (03:58→08:04)
[2019-06-10 04:00] VITALS: BP 152/76; PULSE 75; RESP 18; TEMP 37.2; O2SAT 98
[2019-06-10] MEDS: Lactated Ringers 1,000 ML 125 ML IV (05:50)
[2019-06-10 07:45] VITALS: BP 132/85; PULSE 70; RESP 18; TEMP 36.8; O2SAT 100; O2SAT 98
[2019-06-10 10:47] VITALS: O2SAT 100
[2019-06-10] MEDS: Acetaminophen 500 MG TAB 1000 MG PO (12:26)
[2019-06-10 13:31] VITALS: BP 133/79; PULSE 76; RESP 18; TEMP 37.1; O2SAT 100
--- NOTE | 2019-06-10 13:36 | W.PM.PROGNOT ---
Date of Service Date of service: 06/10/19 Time of Service: 13:36 Assessment and Plan Assessment and plan (1) S/P laparoscopic assisted vaginal hysterectomy (LAVH): Status: Acute Assessment and plan: POD 1 s/p LAVH, posterior colporrpahy and cystoscopy. Ok for discharge home today. Subjective Subjective Interval history since last seen: Doing well. Pain well controlled on Tylenol alone. Did have a bowel movement today. No urinary difficulties. Afebrile. Minimal vaginal bleeding. Jason catheter and packing removed this morning. Objective Objective Clinical Data: Vital Signs Temperature 98.2 F 06/10/19 07:45 Temperature Source Tympanic 06/10/19 07:45 Pulse 70 06/10/19 07:45 Pulse Rhythm Regular 06/10/19 07:45 Respiratory Rate 18 06/10/19 07:45 Respiratory Effort 06/10/19 07:45 Respiratory Depth Normal 06/10/19 07:45 Respiratory Pattern Normal 06/10/19 07:45 Blood Pressure 132/85 06/10/19 07:45 Pulse Oximetry 100 06/10/19 10:47 Respiratory End-tidal CO2 36 06/09/19 12:37 Oxygen Delivery Method Room Air 06/10/19 10:47 Oxygen Flow Rate 0 06/10/19 10:47 Fraction of Inspired Oxygen (FIO2) 21 06/10/19 10:47 Pain Level 0 06/10/19 07:45 Intake & Output 06/09/19 06/10/19 06/10/19 23:59 11:59 23:59 Intake Total 2910.834 / 4160.834 950 / 950 Output Total 2550 / 2800 1100 / 1100 Balance 360.834 / 1360.834 -150 / -150 Intake: IV 2370.834 / 3620.834 950 / 950 Oral 540 / 540 Output: Urine 2550 / 2800 1100 / 1100 Other: Urine Color Pale Zurita Urine Appearance Clear Hematuria Urine Odor None Emesis Description None Voiding Methods Toilet
--- NOTE | 2019-06-10 13:39 | W.PM.OP ---
Operative Note Operative Note DATE OF PROCEDURE: 06/09/19 POST-OP DIAGNOSIS: same PROCEDURE: 1. LAVH with bilateral salpingectomy 2. Posterior colporrhaphy 3. Postoperative cystoscopy CREATIVE RESOURCE MANAGER: Ping Rai ANESTHESIA: GETA and spinal ESTIMATED BLOOD LOSS: 100 PATHOLOGY: other (Uterus with fallopian tubes) Patient was transported to: PACU Patient's condition: stable Implants: 1. LAVH with bilateral salpingectomy 2. Posterior colporrhaphy 3. Postoperative cystoscopy
--- NOTE | 2019-06-10 14:44 | CHAPLAIN ---
Barb was standing up, waiting to have a bowel movement when I visited. She said other than the discomfort from that, she is feeling better. It is more comfortable to stand than sit or lay down, she explained. I offer support and explained my role.
--- NOTE | 2019-06-10 18:25 | PDOC.CMIN ---
- If Service Date Differs Date of service: 06/10/19 Time of Service: 18:25 Care Management Initial Assess REASON FOR HOSPITALIZATION:: AUB PAST MEDICAL HISTORY/PAST SURGICAL HISTORY:: Medical History . Abnormal uterine bleeding (Chronic). Heavy menstrual bleeding. Diverticulosis of colon (Chronic). Gastroesophageal reflux disease (Chronic). Hyperlipidemia (Chronic). Iron deficiency anemia due to chronic blood loss (Chronic). Moderate persistent asthma without complication (Chronic). Obesity (Chronic). LINETTE (obstructive sleep apnea) (Chronic). Prediabetes (Chronic). Surgical History . S/P cholecystectomy (Acute 03/1994) PREVIOUS FUNCTIONAL STATUS/SOCIAL/FAMILY SUPPORTS:: Barb lives in [place], [place] with her , Lefty and daughter Jesus. They also have an adult son, who is supportive. 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 She is independent at baseline. CURRENT FUNCTIONAL STATUS:: Barb was sitting up in her chair when CM met with her. Her , Lefty, was in the room. They were both pleasant and engaged in conversation. She reported that she is feeling ok post surgically, but her back pain from her previous admission is still bothering her. She stated that her nurse was attending to her needs. CM will continue to follow. ADVANCE DIRECTIVES:: None on file. Has patient been provided with information about the portal?: No Did the patient sign up for the portal?: No CODE STATUS:: Full Code INSURANCE COVERAGE / FINANCIAL ISSUES:: [employer]/ [employer] 57% CURRENT HOME/COMMUNITY SERVICES/EQUIPMENT:: None at this time. PRIMARY CARE PHYSICIAN:: Julia Camacho POTENTIAL DISCHARGE NEEDS:: Evaluations for further needs, follow up appointments PATIENT/FAMILY EDUCATION NEEDS:: Review community based supports, discharge plan, discussion of self care needs including Ask Me Three ANTICIPATED BARRIERS TO DISCHARGE:: None identified at this time. TRANSPORTATION:: Anticipate her , Lefty will drive her home via private vehicle. PLAN:: Anticipate Barb will return home with no additional services when medically cleared. She will follow up with her PCP, as recommended. Her will drive her home when ready via private vehicle. CM will continue to follow.
--- NOTE | 2019-06-10 18:36 | PDOC.CMDIS ---
- If Service Date Differs Date of service: 06/10/19 Time of Service: 18:36 LACE Index Scoring Tool - Questions: Length of Stay (in days): 2 Acuity (Admit via E.D.?): No E.D. Visits: 5 - Answers: Total Score: 6 Risk of Readmission: Low Risk Care Management Discharge Reason for Hospitalization: AUB Discharge Plan: Barb will return home with no additional services at this time. Her will drive her home via private vehicle. She will follow up with her PCP, as recommended. Patient/Family Education Needs: Review discharge instructions regarding activity levels and medications, discussion of self care including ask me three
== END 2019-06-10 15:35 | disposition home or self-care (01) ==
LOC: MS 13:56
PROVIDERS: Admitting Provider Obstetrics & Gynecology; PCP Nurse Practitioner Family; Visit Provider Obstetrics & Gynecology
PROC: 0UT9FZZ Resection of Uterus, Via Natural or Artificial Opening With Percutaneous Endoscopic Assistance (ICD-10-PCS; CPT 58552; principal; 2019-06-09 07:30)
PROC: 0UT9FZZ Resection of Uterus, Via Natural or Artificial Opening With Percutaneous Endoscopic Assistance (ICD-10-PCS; CPT 57260; 2019-06-09 07:30)
DX: N93.8 Other specified abnormal uterine and vaginal bleeding (principal); N81.6 Rectocele; E66.9 Obesity, unspecified; Z68.42 Body mass index [BMI] 45.0-49.9, adult; D25.0 Submucous leiomyoma of uterus; G47.33 Obstructive sleep apnea (adult) (pediatric); J45.40 Moderate persistent asthma, uncomplicated; K21.9 Gastro-esophageal reflux disease without esophagitis; E78.5 Hyperlipidemia, unspecified; R73.03 Prediabetes
CPT/HCPCS: 58552; 57250; 99233; 88307; G0378; J0690; J1100; J2001; J2250; J2405; J3010

== ENCOUNTER 2019-10-27 01:43 | Outpatient (CLI) | payer OTHER, SELFPAY ==
--- NOTE | 2019-10-27 06:45 | DI.MAMMO_ITS ---
EXAM: MG MAMMO SCREENING CLINICAL HISTORY: screening,Z12.39 TECHNIQUE: Mammograms were interpreted according to the usual protocol including computer analysis w [employer] CAD system, tomosynthesis and C-view imaging. COMPARISON: FINDINGS: The breasts are of moderate density with fairly symmetrical distribution of fibroglandular tissue. N o dominant mass or clumped microcalcification is identified in either breast. The current examinatio n is compared with prior studies including October 2018 and there has been no gross interval change in a ppearance. IMPRESSION: No specific evidence of malignancy at this time. Routine screening examinations are suggested at yea rly intervals in this age group according to the ACS ACR guidelines. BI-RADS Category 1 - Negative Breast Density - Category B - Scattered areas of fibroglandular density
== END 2019-10-27 02:03 ==
PROVIDERS: PCP Nurse Practitioner Family; Visit Provider Nurse Practitioner Family
DX: Z12.31 Encounter for screening mammogram for malignant neoplasm of breast (principal)
CPT/HCPCS: 77063; 77067

== ENCOUNTER 2019-11-02 02:38 | Outpatient (CLI) | payer OTHER, SELFPAY ==
[2019-11-02 08:03] LABS: HCT 34.1 % (36.0-46.0); HGB 10.4 g/dL (12.0-15.5); Mean Corp. HGB Concentration 30.5 g/dL (32.0-36.0); Mean Corpuscular Hemoglobin 22.5 pg (27.0-33.0); Mean Corpuscular Volume 73.7 fL (80-95); Mean Platelet Volume 9.8 fL (8.0-11.0); Platelet Count 439 x1000/uL (130-400); RBC 4.63 m/cumm (4.00-5.20); RBC Distribution Width 19.2 % (11.7-14.6); White Blood Cell Count 8.77 k/cumm (4.4-10.8)
[2019-11-02 08:24] LABS: Hemoglobin A1C 5.4 % (3.8-5.6)
[2019-11-02 08:58] LABS: Total Iron Binding Capacity 372 ug/dL (250-450)
[2019-11-02 09:11] LABS: Anion Gap 9.1 mmol/L (3-11); BUN 17 mg/dL (7-18); CO2 26.9 mmol/L (21.0-32.0); CREATININE 0.84 mg/dL (0.55-1.02); Calcium 9.3 mg/dL (8.5-10.1); Calculated LDL 139 mg/dL (<100); Chloride 103 mmol/L (98-107); Cholesterol 222 mg/dL (<200); Ferritin 13 ng/mL (8-252); Glucose 94 mg/dL (74-106); HDL Cholesterol 73 mg/dL (40-60); Potassium 4.4 mmol/L (3.5-5.1); Sodium 139 mmol/L (136-145); Triglyceride 53 mg/dL (<150)
== END 2019-11-02 02:58 ==
PROVIDERS: PCP Nurse Practitioner Family; Visit Provider Nurse Practitioner Family
DX: R73.03 Prediabetes (principal); D50.0 Iron deficiency anemia secondary to blood loss (chronic)
CPT/HCPCS: 36415; 80048; 80061; 85027; 82728; 83036; 83550

== ENCOUNTER 2020-01-31 10:37 | Outpatient (CLI) | payer OTHER, SELFPAY ==
[2020-01-31 12:20] LABS: HCT 35.7 % (36.0-46.0); MCH 24.5 pg (27.0-33.0); MCHC 30.8 % (32.0-36.0); MCV 79.5 fL (80-95); MPV 10.4 fL (8.0-11.0); Platelet Count 389 10^3/uL (130-400); RBC 4.49 10^6/uL (3.93-5.22); RDW 17.1 % (11.7-14.6); RDW-SD 49.1 fL; WBC 9.38 10^3/uL (4.4-10.8)
[2020-01-31 12:31] LABS: Total Iron Binding Capacity 336 ug/dL (250-450)
[2020-01-31 12:44] LABS: Ferritin 20 ng/mL (8-252)
== END 2020-01-31 10:57 ==
PROVIDERS: PCP Nurse Practitioner Family; Visit Provider Nurse Practitioner Family
DX: D50.0 Iron deficiency anemia secondary to blood loss (chronic) (principal)
CPT/HCPCS: 36415; 85027; 82728; 83550

== ENCOUNTER 2020-04-13 11:53 | Emergency (ER) | payer OTHER, SELFPAY ==
[2020-04-13] VITALS (34 sets, daily range): BP systolic 119–163; BP diastolic 55–81; PULSE 59–74; RESP 15–31; TEMP 36.5; O2SAT 96–100
--- NOTE | 2020-04-13 12:00 | RT.EKG_ITS ---
APPROVED REPORT Exam: Resting ECG Patient Location: E HR:66 bpm ECG Measurements Heart Rate 66 AXIS AR 202 P 18 QRSd 83 QRS 19 QT 407 T 28 QTc 427 Conclusion Sinus rhythm Borderline prolonged AR interval.
--- NOTE | 2020-04-13 12:15 | W.ED.GENAD ---
Discharge Plan Disposition Patient Disposition: HOME Condition: Improving Discharge Details Clinical Impression: Exacerbation of reactive airway disease, Upper respiratory infection, acute Primary Care Provider: Julia Camacho ED Provider: Cruz Diego Home Meds and New Rx's Prescriptions: New azithromycin 250 mg tablet See Rx Instructions .ROUTE .COMPLEX Qty: 6 RF: 0 Continued albuterol sulfate 2.5 mg /3 mL (0.083 %) solution for nebulization 2.5 mg Inhalation Q4H PRN (Reason: shortness of breath or wheezing) Qty: 100 RF: 4 albuterol sulfate [ProAir HFA] 90 mcg/actuation HFA aerosol inhaler 2 puff Inhalation Q6H PRN (Reason: shortness of breath or wheezing) Qty: 18 RF: 5 montelukast [Singulair] 10 mg tablet 10 mg PO QPM Qty: 90 RF: 4 omeprazole 40 mg capsule,delayed release(DR/EC) 40 mg PO HS Qty: 90 RF: 4 ferrous sulfate 325 mg (65 mg iron) tablet 325 mg PO BID Qty: 100 RF: 3 fluticasone propion-salmeterol [Advair Diskus] 500-50 mcg/dose blister with device 1 inh Inhalation BID Qty: 180 RF: 8 Discharge Instructions Instructions: Reactive Airways Disease (ED) Additional Instructions: Home to rest today. Small, frequent sips of fluids for maintenance of hydration. As we discussed, we will use a fsev-qea-erz approach for the use of antibiotics for a possible bronchitis. If you have persistent cough and malaise tomorrow, may begin the prescribed azithromycin. If your symptoms improve I would recommend you do not take the antibiotics. Follow-up with regular doctor if not improved in 5 days time. Return to the ER for any acute concerns. Medical Decision Making 49-year-old female presents from home stating that she is developed 2 days of nausea and malaise, dry cough, subjective fever and chills. She felt shortness of breath and tightness of the chest this morning at home. Took home inhalers with minimal improvement. Now presents ER for further evaluation. She is afebrile, with increased respiratory rate but 100% sat on room air. Most consistent with probable viral illness and bronchospasm. Patient IV access established, screening labs obtained, given parenteral steroids, inhaled DuoNeb, referred for chest x-ray. X-ray with no acute pulmonary findings. Note of mild increased markings in the lung shaver likely exaggerated by technique. Labs show a white count of 11, hematocrit 37, platelets 424. Chemistries unremarkable. COVID-19 test pending. Patient significantly improved. She does not tolerate systemic steroids but has been able to take her inhaled steroids. She does have a slightly elevated white blood cell count and may be developing a bronchitis. I discussed this with the removal use a mfcc-[id number]-[id number] approach to the use of antibiotics. She is stable and improved, appropriate for discharge to home at this time. HPI General Mode of arrival: ambulatory. Date/Time Provider Initiated Documentation: 04/13/20 11:54. Limitations to Documentation: no limitations. Information obtained by: patient. History of Present Illness 49 year old F presents to the emergency department with the chief complaint of Shortness of breath, described as moderate, Quality is described as dull, and is localized to the chest. Patient reports no radiation. Patient started experiencing this hour(s) and it has been constant. No relieving factors improve symptom(s), No exacerbating factors reported . Patient notes cough, fever/chills, nausea/vomiting and shortness of breath; denies chest pain, syncope and weakness. Patient did receive the following treatments prior to arrival, other (Inhaled beta agonist at home) Related Data Home Medications Medication Instructions Recorded Confirmed albuterol sulfate 2.5 mg INHALATION Q4H PRN #100 vial 03/19/19 04/13/20 albuterol sulfate 90 mcg/actuation 2 puff INHALATION Q6H PRN #18 gm 06/16/19 04/13/20 aerosol inhaler montelukast 10 mg tablet 10 mg PO QPM #90 tab 06/16/19 04/13/20 omeprazole 40 mg capsule,delayed 40 mg PO HS #90 cap 06/16/19 04/13/20 release ferrous sulfate 325 mg (65 mg 325 mg PO BID #100 tab 11/11/19 04/13/20 iron) tablet Advair Diskus 500 mcg-50 mcg/dose 1 inh INHALATION BID #180 each NS 02/28/20 04/13/20 powder for inhalation azithromycin See Rx Instructions .ROUTE 04/13/20 .COMPLEX #6 tab Previous Rx's Medication Instructions Recorded albuterol sulfate 2.5 mg INHALATION Q4H PRN #100 vial 03/19/19 albuterol sulfate 90 mcg/actuation 2 puff INHALATION Q6H PRN #18 gm 06/16/19 aerosol inhaler montelukast 10 mg tablet 10 mg PO QPM #90 tab 06/16/19 omeprazole 40 mg capsule,delayed 40 mg PO HS #90 cap 06/16/19 release Advair Diskus 500 mcg-50 mcg/dose 1 inh INHALATION BID #180 each NS 02/28/20 powder for inhalation azithromycin See Rx Instructions .ROUTE 04/13/20 .COMPLEX #6 tab Allergies Allergy/AdvReac Type Severity Reaction Status Date / Time aspirin Allergy Severe ANAPHYLAXIS Verified 04/13/20 12:04 codeine Allergy Severe ANALHYLAXIS Verified 04/13/20 12:04 mometasone furoate Allergy Severe ANAPHYLAXIS, Verified 04/13/20 12:04 [From Asmanex Twisthaler] ADVAIR OK TO TAKE NSAIDS (Non-Steroidal Allergy Severe ANAPHYLAXIS Verified 04/13/20 12:04 Anti-Inflamma Penicillins Allergy Unknown black Verified 04/13/20 12:04 out...see comment prednisone AdvReac Severe projectile Verified 04/13/20 12:04 vomiting hydromorphone [From Dilaudid] AdvReac Intermediate chest Unverified 04/13/20 12:04 tightness & pain upon administration General Stated Complaint: SOB SARITA: 2 Review of Systems Narrative: 6 systems reviewed and otherwise negative. Positive sick contacts in the home. No travel. [facility] Medical History (Updated 04/13/20 @ 14:32 by Cruz Diego MD) Abnormal uterine bleeding Heavy menstrual bleeding s/p hysterectomy Diverticulosis of colon Gastroesophageal reflux disease Hyperlipidemia Iron deficiency anemia due to chronic blood loss Moderate persistent asthma without complication Obesity LINETTE (obstructive sleep apnea) PSG 2009. CPAP Prediabetes Surgical History S/P cholecystectomy (03/1994) S/P laparoscopic assisted vaginal hysterectomy (LAVH) (06/10/19) With posterior colporrhaphy for abnormal uterine bleeding and pelvic prolapse. Family History Mother Hyperlipidemia Type 2 diabetes mellitus Essential hypertension Father , at 44 of ND, cardiomyopathy Heart disease Hyperlipidemia Myocardial infarction Type 2 diabetes mellitus Essential hypertension Sister Essential hypertension Hyperlipidemia Endometrial cancer Brother , at 19 of MVA No problems noted. Son Asthma Daughter No problems noted. Maternal Grandfather , at 86 of lung cancer Heart disease Lung cancer Maternal Grandmother , at 84 of breast CA Essential hypertension Breast cancer Liver cancer Paternal Grandfather , at 67 COPD (chronic obstructive pulmonary disease) Heart disease Paternal Grandmother , at 86 of endometrial cancer Endometrial cancer Hyperlipidemia Social History Smoking/Tobacco Use Status: Never Second Hand Exposure: Yes Smoking risk assessment performed?: Yes Alcohol Intake: never Drug use: Never Substance use type: does not use Caregiver/Support person: No Household members: spouse and children Housing: house Communication Needs: None Do you need help understanding health information?: Never Pets and animals: Yes Pets and animals: cat(s) and dog(s) Sexually active: Yes Do you think of yourself as: straight/heterosexual Current gender identity: female What is your relationship status?: How often do you talk on the phone with friends or family?: three or more times per week How often do you get together with friends or relatives?: twice per week How often do you attend mormonism or roman catholic services?: 4 or more times per year Do you belong to any clubs or organized social groups?: no Panel score (0-1 are the most socially isolated patients): 3 What type of physical activity do you participate in: walking Duration: decline to answer Frequency: 1-2 times per week Екатерина/Faith: Taoist Special екатерина needs: No Seatbelt use: always Helmet use: Yes Helmet use: always Drive intox or ride w/intox escort vehicle driver: No Do you feel safe at home: Yes Do you feel safe in your relationship?: Yes Female Reproductive History Menstrual control method: permanent sterilization Menopause type: surgical Date of menopause: 06/10/19 History History 2 Para 2 Hx # Term Pregnancies Multiple births Hx # Pregnancies Ectopic pregnancies AB induced Hx Number of Living Children 2 AB spontaneous Exam Narrative Exam Narrative: GEN: awake, alert, oriented 3. Pleasant, well groomed, interactive. HEAD: Normocephalic, atraumatic ENT: Mucous membranes moist, External ear exam unremarkable EYES: PERRL, EOMI NECK: Full ROM, no SIGRID, no menigismus CHEST/RESP: Nontender, diminished throughout both lung shaver, speaking in full sentences CARDIOVASCULAR: RRR, no murmur, rub elder. 2+ Rad pulse bilateral ABDOMEN: Soft, nontender, no mass. +Bowel sounds EXT: Full ROM, no edema, no rash Neuro: Grossly normal neurologic exam, conversant, interactive. Psych: Speech fluent, thoughts congruent, affect normal Course Vital Signs Vital signs: Vital Signs Temperature 36.5 C 04/13/20 12:00 Pulse 72 04/13/20 12:00 Respiratory Rate 28 H 04/13/20 12:00 Blood Pressure 163/81 H 04/13/20 12:00 Pulse Oximetry 100 04/13/20 12:00 Temperature 36.5 C 04/13/20 12:00 Temperature Source Skin 04/13/20 12:00 Pulse 72 04/13/20 12:00 Respiratory Rate 28 H 04/13/20 12:00 Respiratory Effort Labored 04/13/20 12:05 Blood Pressure 163/81 H 04/13/20 12:00 Blood Pressure Position Sitting 04/13/20 12:00 Pulse Oximetry 100 04/13/20 12:00 Oxygen Delivery Method Room Air 04/13/20 12:00 Oxygen Flow Rate 0 04/13/20 12:00 Pain Level 3 04/13/20 12:00
[2020-04-13 12:28] LABS: Abs Immature Grans 0.06 10^3/uL (0.0-0.06); Absolute Basophil Count 0.04 10^3/uL (0.0-0.2); Absolute Eosinophil Count 0.09 10^3/uL (0.0-0.7); Absolute Lymphocyte Count 1.95 10^3/uL (1.2-3.4); Absolute Monocyte Count 0.77 10^3/uL (0.1-0.8); Basophils % 0.4; Eosinophils % 0.8; HCT 37.5 % (36.0-46.0); Immature Grans % 0.5; Lymphocytes % 17.4; MCH 25.5 pg (27.0-33.0); MCV 79.8 fL (80-95); MPV 9.7 fL (8.0-11.0); Monocytes % 6.9; Nucleated RBC 0 %; Platelet Count 424 10^3/uL (130-400); RDW 16.6 % (11.7-14.6); RDW-SD 47.7 fL; WBC 11.21 10^3/uL (4.4-10.8)
[2020-04-13] MEDS: Normal Saline 1,000 ML 1000 ML IV (12:42)
[2020-04-13] MEDS: methylPREDNISolone SUCC 125 MG VIAL IVP (12:43)
[2020-04-13] MEDS: Albuterol/Ipratropium 3 ML UPD VIAL UPD (12:43)
[2020-04-13 12:53] LABS: ALT 17 U/L (14-59); AST 15 U/L (15-37); Albumin 3.6 g/dL (3.4-5.0); Alkaline Phosphatase 73 U/L (46-116); Anion Gap 10.5 mmol/L (3-11); BUN 7 mg/dL (7-18); Bilirubin, Total 0.5 mg/dL (0.2-1.0); CO2 22.5 mmol/L (21.0-32.0); CREATININE 0.77 mg/dL (0.55-1.02); Calcium 9.3 mg/dL (8.5-10.1); Chloride 103 mmol/L (98-107); Glucose 98 mg/dL (74-106); Potassium 3.8 mmol/L (3.5-5.1); Sodium 136 mmol/L (136-145); Total Protein 8.3 g/dL (6.4-8.2)
--- NOTE | 2020-04-13 13:08 | DI.RAD_ITS ---
EXAM: XR PORTABLE CHEST AP CLINICAL HISTORY: cough, sob. TECHNIQUE: 2D digital imaging was performed. COMPARISON: CR CHEST 2 VIEWS PA,LAT from 12/31/2014 FINDINGS: Chest leads in place. Heart size upper normal. The mediastinum is not widened. There are no conflu ent infiltrates infiltrates nor pleural effusions. No airspace pulmonary edema. Mild increased josue ings in the lung shaver probably exaggerated by portable technique. There is no pneumothorax. No ob vious osseous findings. IMPRESSION: No acute pulmonary findings. Recommend follow-up nonportable PA and lateral views when clinically po ssible. DATA REPOSITORY: RADIATION DOSE DELIVERED:
[2020-04-13] MEDS: LORazepam 2 MG/ML VIAL 0.5 MG IVP (13:26)
[2020-04-15 16:38] LABS: COVID-19 RT-PCR Result NEGATIVE (Negative)
== END 2020-04-13 14:52 | disposition home or self-care (01) ==
PROVIDERS: Emergency Provider Emergency Medicine; PCP Nurse Practitioner Family
DX: J45.901 Unspecified asthma with (acute) exacerbation (principal); J06.9 Acute upper respiratory infection, unspecified; Z03.818 Encounter for observation for suspected exposure to other biological agents ruled out
CPT/HCPCS: 36415; 80053; 93005; 94640; 96361; 96374; 96375; 99285; U0003; 71045; 85025; 93010; 99284; J2060; J2930; J7620

== ENCOUNTER 2020-10-27 02:30 | Outpatient (CLI) | payer OTHER, SELFPAY ==
[2020-10-27 07:42] LABS: Abs Immature Grans 0.06 10^3/uL (0.0-0.06); Absolute Basophil Count 0.05 10^3/uL (0.0-0.2); Absolute Lymphocyte Count 1.96 10^3/uL (1.2-3.4); Absolute Monocyte Count 0.82 10^3/uL (0.1-0.8); Absolute Neutrophil Count 6.87 10^3/uL (1.2-6.7); Basophils % 0.5; HCT 38.1 % (36.0-46.0); HGB 11.9 g/dL (11.2-15.7); Immature Grans % 0.6; Lymphocytes % 19.5; MCH 26.5 pg (27.0-33.0); MCHC 31.2 % (32.0-36.0); MCV 84.9 fL (80-95); MPV 9.7 fL (8.0-11.0); Monocytes % 8.2; Neutrophils % 68.2; Nucleated RBC 0 %; Platelet Count 333 10^3/uL (130-400); RBC 4.49 10^6/uL (3.93-5.22); RDW 14.6 % (11.7-14.6); RDW-SD 44.8 fL; WBC 10.06 10^3/uL (4.4-10.8)
[2020-10-27 08:21] LABS: Total Iron Binding Capacity 331 ug/dL (250-450)
[2020-10-27 08:35] LABS: Anion Gap 8.1 mmol/L (3-11); BUN 15 mg/dL (7-18); CO2 27.9 mmol/L (21.0-32.0); CREATININE 0.7 mg/dL (0.55-1.02); Calcium 9.1 mg/dL (8.5-10.1); Calculated LDL 125 mg/dL (<100); Chloride 104 mmol/L (98-107); Cholesterol 209 mg/dL (<200); Ferritin 34 ng/mL (8-252); Glucose 99 mg/dL (74-106); HDL Cholesterol 70 mg/dL (40-60); Potassium 4.2 mmol/L (3.5-5.1); Sodium 140 mmol/L (136-145); Triglyceride 71 mg/dL (<150)
== END 2020-10-27 02:31 | disposition home or self-care (01) ==
LOC: LBO 02:30
PROVIDERS: PCP Nurse Practitioner Family; Visit Provider Nurse Practitioner Family
DX: E78.5 Hyperlipidemia, unspecified (principal); D50.0 Iron deficiency anemia secondary to blood loss (chronic)
CPT/HCPCS: 36415; 80048; 80061; 82728; 83550; 85025

== ENCOUNTER 2020-10-27 03:41 | Outpatient (CLI) | payer OTHER, SELFPAY ==
--- NOTE | 2020-10-27 06:45 | DI.MAMMO_ITS ---
Exam(s) MAMMO SCREENING EXAM: MAMMO SCREENING CLINICAL HISTORY: screening,Z12.39 TECHNIQUE: Mammograms were interpreted according to the usual protocol including computer analysis w [employer] CAD system, tomosynthesis and C-view imaging. COMPARISON: 2011 through 2019 FINDINGS: The breasts are composed of mainly fatty density , Breast Density category A. No suspicious masses or suspicious microcalcifications are seen. No skin thickening or abnormal axillary lymph nodes are seen. There has been no significant change from prior exams. IMPRESSION: BI-RADS Category 1, Negative mammogram Yearly screening mammography is recommended. Breast Density - Category A, fatty density. A negative radiographic report should not delay biopsy if a dominant or clinically suspicious mass is present. Up to ten percent of cancers are not identified on mammography. A negative report may reinforce clinical impression. Adenosis and dense breasts may obscure an underlying neoplasm. False positive reports average 6 to 10%. Patient will receive a letter notifying them of these results.
== END 2020-10-27 04:01 ==
PROVIDERS: PCP Nurse Practitioner Family; Visit Provider Nurse Practitioner Family
DX: Z12.31 Encounter for screening mammogram for malignant neoplasm of breast (principal); R92.8 Other abnormal and inconclusive findings on diagnostic imaging of breast
CPT/HCPCS: 77063; 77067

== ENCOUNTER → 2022-02-27 02:16 | Outpatient (CLI) | payer OTHER, SELFPAY ==
--- NOTE | 2022-02-27 08:00 | DI.MAMMO_ITS ---
Exam(s) MAMMO SCREENING EXAM: MAMMO SCREENING CLINICAL HISTORY: screening,z12.39 TECHNIQUE: Mammograms were interpreted according to the usual protocol including computer analysis w [employer] CAD system, tomosynthesis and C-view imaging. COMPARISON: FINDINGS: The breasts are of moderate density with fairly symmetrical distribution of fibroglandular tissue. N o dominant mass or clumped microcalcification is identified in either breast. The current examinatio n is compared with previous examinations including October 2020 and there has been no gross interval prosper nge in appearance in comparison with the prior studies. IMPRESSION: No specific evidence of malignancy at this time. Routine screening examinations are suggested at yea rly intervals in this age group according to the ACS ACR guidelines. BI-RADS Category 1 - Negative Breast Density - Category B - Scattered areas of fibroglandular density
== END ==
PROVIDERS: PCP Nurse Practitioner Family; Visit Provider Nurse Practitioner Family
DX: Z12.31 Encounter for screening mammogram for malignant neoplasm of breast (principal)
CPT/HCPCS: 77063; 77067

== ENCOUNTER → 2023-03-03 02:29 | Outpatient (CLI) | payer OTHER, SELFPAY ==
--- NOTE | 2023-03-03 08:00 | DI.MAMMO_ITS ---
Exam(s) MAMMO SCREENING EXAM: MAMMO SCREENING CLINICAL HISTORY: screening,z12.39 TECHNIQUE: Mammograms were interpreted according to the usual protocol including computer analysis w [employer] CAD system, tomosynthesis and C-view imaging. COMPARISON: 2014 through 2021 FINDINGS: The breasts are composed of mainly fatty density , Breast Density category A. No suspicious masses or suspicious microcalcifications are seen. No skin thickening or abnormal axillary lymph nodes are seen. There has been no significant change from prior exams. IMPRESSION: BI-RADS Category 1, Negative mammogram Yearly screening mammography is recommended. Breast Density - Category A, fatty density. A negative radiographic report should not delay biopsy if a dominant or clinically suspicious mass is present. Up to ten percent of cancers are not identified on mammography. A negative report may reinforce clinical impression. Adenosis and dense breasts may obscure an underlying neoplasm. False positive reports average 6 to 10%. Patient will receive a letter notifying them of these results.
== END ==
PROVIDERS: PCP Nurse Practitioner Family; Visit Provider Nurse Practitioner Family
DX: Z12.31 Encounter for screening mammogram for malignant neoplasm of breast (principal)
CPT/HCPCS: 77063; 77067

== ENCOUNTER 2023-03-03 03:25 | Outpatient (CLI) | payer OTHER, SELFPAY ==
[2023-03-03 07:33] LABS: HCT 41.1 % (36.0-46.0); HGB 13.1 g/dL (11.2-15.7); MCHC 31.9 % (32.0-36.0); MCV 85 fL (80-95); MPV 9.8 fL (8.0-11.0); Platelet Count 363 10^3/uL (130-400); RBC 4.85 10^6/uL (3.93-5.22); RDW 14.7 % (11.7-14.6); RDW-SD 45.2 fL; WBC 10.32 10^3/uL (4.4-10.8)
[2023-03-03 07:46] LABS: Hemoglobin A1C 5.5 % (<5.7)
[2023-03-03 08:51] LABS: ALT 20 U/L (14-59); AST 11 U/L (15-37); Albumin 3.7 g/dL (3.4-5.0); Alkaline Phosphatase 93 U/L (46-116); Anion Gap 11.1 mmol/L (3-11); BUN 14 mg/dL (7-18); Bilirubin, Total 0.4 mg/dL (0.2-1.0); CO2 26.9 mmol/L (21.0-32.0); CREATININE 0.9 mg/dL (0.55-1.02); Calcium 9.4 mg/dL (8.5-10.1); Calculated LDL 132 mg/dL (<100); Chloride 102 mmol/L (98-107); Cholesterol 218 mg/dL (<200); Estimated GFR 76.92 (mL/min/1.73m2); Ferritin 50 ng/mL (8-252); Glucose 91 mg/dL (74-106); HDL Cholesterol 75 mg/dL (40-60); Potassium 3.6 mmol/L (3.5-5.1); Sodium 140 mmol/L (136-145); Total Protein 8.4 g/dL (6.4-8.2); Triglyceride 55 mg/dL (<150)
== END 2023-03-03 03:26 | disposition home or self-care (01) ==
PROVIDERS: PCP Nurse Practitioner Family; Visit Provider Nurse Practitioner Family
DX: Z00.00 Encounter for general adult medical examination without abnormal findings (principal)
CPT/HCPCS: 36415; 80053; 80061; 85027; 82728; 83036

== ENCOUNTER 2023-05-14 14:41 | Outpatient (CLI) | payer OTHER, SELFPAY ==
[2023-05-15 08:39] LABS: Syphilis Serology (RPR) Negative (Negative)
[2023-05-15 09:46] LABS: HIV-1/2 Ag & Ab Screen Negative (Negative)
[2023-05-15 09:48] LABS: Hepatitis C Ab w Rflx HCV PCR Negative (Negative)
== END 2023-05-14 14:42 | disposition home or self-care (01) ==
LOC: LBO 14:43
PROVIDERS: PCP Nurse Practitioner Family; Visit Provider Nurse Practitioner Family
DX: Z11.3 Encounter for screening for infections with a predominantly sexual mode of transmission (principal)
CPT/HCPCS: 36415; 86803; 87389; 87491; 87591; 86592

== ENCOUNTER 2023-05-16 16:45 | Outpatient (REF) | payer OTHER, SELFPAY ==
[2023-05-17 12:49] LABS: Chlamydia Result Negative (Negative); GC Result Negative (Negative)
== END 2023-05-16 16:46 | disposition home or self-care (01) ==
LOC: LBN 16:45
PROVIDERS: PCP Nurse Practitioner Family; Visit Provider Nurse Practitioner Family
DX: Z11.3 Encounter for screening for infections with a predominantly sexual mode of transmission (principal)
CPT/HCPCS: 87491; 87591

== ENCOUNTER → 2023-07-01 15:18 | Outpatient (CLI) | payer OTHER, SELFPAY ==
--- NOTE | 2023-07-01 14:05 | DI.RAD_ITS ---
Exam(s) XR KNEE RT 3V AP,LAT,KARUNA EXAM: XR KNEE RT 3V AP,LAT,KARUNA CLINICAL HISTORY: twisting injury to rt knee while getting out of car, rt knee pain, M25.561. TECHNIQUE: 2D digital imaging was performed. Three views. COMPARISON: No exams were available for comparison FINDINGS: BONES: No acute fracture is present. No bony destructive lesion is seen. JOINTS: The knee is normally aligned. No joint effusion is seen. Femoral tibial joint spaces are main tained. Mild periarticular spurring. Mild spurring at the articular aspect of the patella. SOFT TISSUE: Normal. IMPRESSION: Mild degenerative changes. No acute abnormality. DATA REPOSITORY: RADIATION DOSE DELIVERED:
== END ==
PROVIDERS: PCP Nurse Practitioner Family; Visit Provider Family Medicine
DX: M25.561 Pain in right knee (principal)
CPT/HCPCS: 73562

== ENCOUNTER → 2023-08-12 03:41 | Outpatient (CLI) | payer OTHER, SELFPAY ==
--- NOTE | 2023-08-12 08:00 | DI.MRI_ITS ---
Exam(s) MR LOWER JOINT RT WO EXAM: MR LOWER JOINT RT WO CLINICAL HISTORY: PAIN,tear medial meniscus rt knee,s83.241a. TECHNIQUE: Multiplanar multisequence MRI was performed. COMPARISON: CR XR KNEE RT 3V AP,LAT,KARUNA from 07/01/2023 FINDINGS: BONES: There is no fracture or contusion pattern. JOINTS: A small joint effusion is present. Articular cartilage: Patellofemoral joint: Severe loss cartilage over the lateral patellar facet, ex tend down to and involving underlying bone. Lateral patellar tilt and lateral patellar deviation. S purring at the lateral aspect of the patella. Medial femoral tibial joint: Articular cartilage is unremarkable. Lateral femoral tibial joint: focal cartilage defects extending down to bone. TENDONS: Extensor mechanism: Unremarkable. Medial retinaculum: Unremarkable. Lateral retinaculum: Unremarkable. Popliteus: Mild thickening and edema proximally. Small fluid collections at proximal muscle. Pes anserine tendons: Small amount of fluid between tendons. No evidence of tendon tear. MENISCI: The medial meniscus shows mild degenerative changes. The lateral meniscus shows mild degenerative change SOFT TISSUES: mild edema in the anterior subcutaneous fat. Venous varicosities. LIGAMENTS: Anterior Cruciate: Unremarkable. Posterior Cruciate: Unremarkable. Medial Collateral:Unremarkable. Lateral Collateral: Unremarkable. IMPRESSION: Degenerative changes with severe cartilage thinning at the patellofemoral joint. Focal cartilage defects in the medial femoral condyle extending down to bone. Line tendinosis of the popliteus tendon with a small amount of fluid extending along muscle. Small amount of fluid around the pes anserine tendons. DATA REPOSITORY:
== END ==
PROVIDERS: PCP Nurse Practitioner Family; Visit Provider Student in an Organized Health Care Education/Training Program
DX: M25.561 Pain in right knee (principal); M25.461 Effusion, right knee; M17.11 Unilateral primary osteoarthritis, right knee; M23.8X1 Other internal derangements of right knee; S83.241A Other tear of medial meniscus, current injury, right knee, initial encounter
CPT/HCPCS: 73721

== ENCOUNTER 2024-03-08 01:41 | Outpatient (CLI) | payer OTHER, SELFPAY ==
--- NOTE | 2024-03-08 09:30 | DI.MAMMO_ITS ---
Exam(s) MAMMO SCREENING EXAM: MAMMO SCREENING CLINICAL HISTORY: screening, Z12.39 TECHNIQUE: Bilateral full field digital CC and MLO mammographic images were obtained with 3D tomosyn thesis and utilizing computer aided detection (CAD). COMPARISON: Available for comparison. FINDINGS: Masses/Architectural Distortion: None seen. Microcalcifications: No suspicious pleomorphic-type are seen. Skin Thickening/Nipple Retraction: None. IMPRESSION: 1. No significant interval change with no specific features of malignancy noted. 2. Unless there is more urgent need, screening mammography is recommended, as per [employer] guidelines. BI-RADS Category 1 - Negative Breast Density - Category A - Almost entirely fatty Breast density category C or D implies that the patient has dense breast tissue. Dense breast tissue is very common and is not abnormal but dense breast tissue can make it harder to find cancer on a ma mmogram. Also, dense breast tissue may increase their breast cancer risk. This information about the result of the mammogram report was provided to the patient to raise their awareness. Use this report when you speak with the patient about their risks for breast cancer, which includes their family hist ory. At that time, you may recommend for more screening tests (Ultrasound or MRI) as they might be us eful based on their risk. A negative radiographic report should not delay biopsy if a dominant or clinically suspicious mass is present. Up to ten percent of cancers are not identified on mammography. A negative report may reinforce clinical impression. Adenosis and dense breasts may obscure an underlying neoplasm. False positive reports average 6 to 10%. Patient will receive a letter notifying them of these results.
== END 2024-03-08 02:01 ==
LOC: DI 01:41
PROVIDERS: PCP Nurse Practitioner Family; Visit Provider Nurse Practitioner Family
DX: Z12.31 Encounter for screening mammogram for malignant neoplasm of breast (principal)
CPT/HCPCS: 77063; 77067

== ENCOUNTER 2024-06-11 00:55 | Outpatient (CLI) | payer OTHER, SELFPAY ==
--- NOTE | 2024-06-11 14:30 | DI.US_ITS ---
APPROVED REPORT EXAM: Comprehensive 2D, Doppler, and color-flow Echocardiogram Patient Location: Out-Patient [employer] Operator: Jacob Cohn RDCS (AE) Indications: Systolic murmur Other Information Technically limited study due to body habitus. Conclusion Normal left ventricular wall thickness and chamber size. Ejection fraction is 65%. Wall motion is n ormal Normal right ventricular size and function Both atria are normal in size There is no structural or hemodynamically significant valvular disease Wall motion Left Ventricle The left ventricle is normal size. Left ventricular systolic function is normal. The left ventricular ejection fraction is within the normal range. There is normal left ventricular wall thickness. There is normal LV segmental wall motion. There is no ventricular septal defect visualized. LVEF is 65%. Right Ventricle The right ventricle is normal size. The right ventricular systolic function is normal. Atria The left atrium size is normal. The right atrium size is normal. Aortic Valve The aortic valve is normal in structure. Aortic valve is trileaflet. There is no aortic valvular sten osis. No aortic regurgitation is present. Mitral Valve The mitral valve is normal in structure. No evidence of mitral valve stenosis. Trace mitral regurgita tion. Tricuspid Valve The tricuspid valve is normal in structure. There is no tricuspid valve stenosis. Trace tricuspid reg urgitation. The RVSP is 31.1 mmHg. Pulmonic Valve The pulmonary valve is normal in structure. There is no pulmonic valvular stenosis. There is no pulmo real valvular regurgitation. Great Vessels The aortic root is normal in size. The ascending aorta is normal in size. Aortic arch is normal in ca liber. IVC is normal in size and collapses >50% with inspiration. Pericardium There is no pericardial effusion. 2D Dimensions IVSD d PLAX 0.74 cm F: 0.6-1.0 Ao Root d 2.31 cm F: 2.7 - 3.3 LVPW d PLAX 0.67 cm F: 0.6 - 1.0 Ao Asc Diam d 2.93 cm F: 2.3 - 3.1 LVID d PLAX 5.17 cm F: 3.8 - 5.2 LVDs 3.31 cm F: 2.2 - 3.5 LV EF Teichholz 65.2 % FS 35.98 % LV EDV (Teich) 127.9 mL LV ESV (Teich) 44.5 mL Stroke Vol Index (Teich) 38.63 M-Mode TAPSE 3.16 cm (M/F) >1.7 Auto EF LV EDV A4C 136.0 mL LV EDV A2C 156.5 mL LV EDV BP 148.5 mL LV ESV A4C 48.7 mL LV ESV A2C 54.4 mL LV ESV BP 51.5 mL LVEF(%) A4C 64.2 % LVEF(%) A2C 65.2 % LVEF(%) BP 65.3 % LV SV A4C 87.4 ml LV SV A2C 102.0 ml LV SV BP 97.0 ml LV CO A4C 5.0 L/min LV CO A2C 5.9 L/min LV CO BP 5.5 L/min HR A4C 57.69 BPM HR A2C 57.42 BPM LV EDV Index (BP) LA Volume LA Length A4C 5.4 cm LA Length A2C 5.1 cm LA Area A4C s 10.77 cm2 LA Area A2C s 16.72 cm2 LA Vol A4C A-L 18.13 mL LA Vol A2C A-L 46.41 mL LA Vol Biplane A-L 29.9 mL LA Vol/BSA A4C A-L LA Vol/BSA A2C A-L LA Vol/BSA BP A-L 13.8 mL/m2 LA Vol A4C MOD 17.5 mL LA Vol A2C MOD 42.5 mL LA Vol BP MOD 27.9 mL RA Volume RA Area A4C 8.2 cm2 RA ESV A4C (A-L) 16.1mL RA Vol/BSA A4C A-L RA Length A4C 3.5 cm RA ESV A4C (MOD) 13.6mL LV Diastology MV E' medial 0.094 (>0.07 m/s) MV E Vmax 1.09 (0.4-1.3 m/s) MV E/E' MED 11.61 (<14) MV A Vmax 1.00 (0.4-1.3 m/s) MV E' lateral 0.123 (>0.1 m/s) E/A Ratio 1.1 MV E/E' LAT 8.81 (<14) MV E' Average 0.109 m/s MV E/E'(average) 10.01 Aortic Valve AoV Vmax 1.68 m/s LVOT Vmax 1.23 m/s AoV Peak Grad 11.4 mmHg LVOT Peak Grad 6.1 mmHg AoV Area (Vmax) 1.64 cm2 LVOT VTI 0.333 m AoV VTI 0.453 m LVOT Mean Grad 3.6 mmHg AoV Mean Ravi. 1.18 m/s LVOT SV 74.49 mL AoV Mean Grad 6.3 mmHg LVOT Diam s 1.65 cm AoV Area (VTI) 1.65 cm2 AV Regurg Peak Gr. 11.35 mmHg Velocity Ratio 0.73 Mitral Valve MV DT 178 (160-240 msec) MV Vmax TIPS 1.06 m/s MV Mean Grad 2.3 (<2mmHg) MV VTI 0.442 m Pulmonary Valve PV Vmax 1.18 (0.5-1.5 m/s) RVOT Vmax 0.99 m/s PV Peak Grad 5.6 mmHg RVOT Peak Gr. 3.9 mmHg PV Mean Ravi 0.84 m/s RVOT VTI 0.231 m PV Mean Grad 3.2 mmHg RVOT Mean Gr. 2.3 mmHg Tricuspid Valve RA Pressure 3.00 mmHg TR Vmax 2.65 m/s TR Peak Grad 28.0 mmHg RVSP (TR) 31.1 mmHg
== END 2024-06-11 01:15 ==
LOC: DI 00:56
PROVIDERS: PCP Nurse Practitioner Family; Visit Provider Internal Medicine Cardiovascular Disease
DX: R01.1 Cardiac murmur, unspecified (principal)
CPT/HCPCS: 93306

== ENCOUNTER 2024-07-02 00:48 | Outpatient (CLI) | payer OTHER, SELFPAY ==
[2024-07-02 12:58] LABS: Anion Gap 5.5 mmol/L (3-11); BUN 10 mg/dL (7-18); CO2 29.5 mmol/L (21.0-32.0); CREATININE 0.7 mg/dL (0.55-1.02); Calcium 9.3 mg/dL (8.5-10.1); Calculated LDL 125 mg/dL (<100); Chloride 104 mmol/L (98-107); Cholesterol 217 mg/dL (<200); Estimated GFR 102.71 (mL/min/1.73m2); Glucose 86 mg/dL (74-106); HDL Cholesterol 85 mg/dL (>or=50); Potassium 3.8 mmol/L (3.5-5.1); Sodium 139 mmol/L (136-145); TSH (W/Ref FT4) 2.11 uIU/mL (0.36-3.74); Triglyceride 37 mg/dL (<150)
[2024-07-02 12:59] LABS: Hemoglobin A1C 5.5 % (<5.7)
[2024-07-05 10:13] LABS: HBs Antibody, Quant <3.1 mIU/mL (See Note); Hep B Surface Ab Negative (See Note); Hepatitis B Core Antibody Negative (Negative); Hepatitis B Surface Antigen Negative (Negative)
== END 2024-07-02 00:49 | disposition home or self-care (01) ==
LOC: LOS 00:48
PROVIDERS: PCP Nurse Practitioner Family; Visit Provider Nurse Practitioner Family
DX: Z00.00 Encounter for general adult medical examination without abnormal findings (principal); R73.03 Prediabetes; Z11.59 Encounter for screening for other viral diseases
CPT/HCPCS: 36415; 80048; 80061; 86704; 86706; 87340; 83036; 84443

== ENCOUNTER → 2025-03-09 01:57 | Outpatient (CLI) | payer OTHER, SELFPAY ==
--- NOTE | 2025-03-09 07:45 | DI.MAMMO_ITS ---
Exam(s) MAMMO SCREENING EXAM: MAMMO SCREENING CLINICAL HISTORY: screening,Z12.39. TECHNIQUE: Bilateral full field digital CC and MLO mammographic images were obtained with 3D tomosynthesis and utilizing computer aided detection (CAD). COMPARISON: Prior mammograms were reviewed. FINDINGS: There has been no significant change in the appearance and distribution of the fibroglandular tissue. There are no CAD designations. There are no new spiculated masses nor malignant appearing microcalcification groups. There is no significant architectural distortion nor skin thickening-retraction. IMPRESSION: No radiographic evidence of malignancy. BI-RADS Category 1 - Negative Breast Density - Category B - There are scattered areas of fibroglandular density. Breast density Category C or D implies that the patient has dense breast tissue. Dense breast tissue can make it harder to find cancer on a mammogram. Dense breast tissue is also associated with an increased risk of breast cancer. This information about the result of the mammogram report was provided to the patient to raise their awareness. Use this report when you speak with the patient about their risks for breast cancer, which includes their family history. At that time, you may recommend additional screening tests (Ultrasound or MRI) as these tests may add significant information. A negative radiographic report should not delay biopsy if a dominant or clinically suspicious mass is present. Up to ten percent of cancers are not identified on mammography. A negative report may reinforce clinical impression. Adenosis and dense breasts may obscure an underlying neoplasm. False positive reports average 6 to 10%. Patient will receive a letter notifying them of these results.
== END ==
LOC: DI 01:58
PROVIDERS: PCP Nurse Practitioner Family; Visit Provider Nurse Practitioner Family
DX: Z12.31 Encounter for screening mammogram for malignant neoplasm of breast (principal); R92.323 Mammographic fibroglandular density, bilateral breasts
CPT/HCPCS: 77063; 77067